=== PATIENT | female | born 1965 | race Caucasian/White ===

== ENCOUNTER 2017-02-24 10:39 | Emergency (ER) | payer BC ==
--- NOTE | 2017-02-24 11:00 | EDM.PDOC ---
ED HPI GENERAL MEDICAL PROBLEM - General Chief Complaint: Bite:Animal, Insect Stated Complaint: SCRATCH FROM CAT Time Seen by Provider: 02/24/17 10:57 Source of Information: Reports: Patient History Limitations: Reports: No Limitations - History of Present Illness INITIAL COMMENTS - FREE TEXT/NARRATIVE: HISTORY AND PHYSICAL: []51-year-old female who had scratches from her cat 2 days ago History of Present Illness: []The back claws of the cat caught her on her right forearm there is erythema surrounding the area She's been using antibiotic ointment on this Review of Systems: As per history of present illness and below otherwise all systems reviewed and negative. Past medical history: As per history of present illness and as reviewed below otherwise noncontributory. Surgical history: As per history of present illness and as reviewed below otherwise noncontributory. Social history: No reported history of drug or alcohol abuse. Family history: As per history of present illness and as reviewed below otherwise noncontributory. Physical exam: Alert and oriented female who is in significant pain from this superficial skin infection HEENT: Atraumatic, normocehpalic, pupils reactive, negative for conjunctival pallor or scleral icterus, mucous membranes dry throat clear, neck supple, nontender, trachea midline. Lungs: Clear to auscultation, breath sounds equal bilaterally, chest non tender. Heart: S1S2, regular, negative for clicks, rubs, or JVD. Abdomen: Soft, nondistended, nontender. Negative for masses or hepatossplenmegaly. Negative for costovertebral tenderness. Pelvis: Stable nontender. 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: Deferred. Rectal: Deferred Extremities: Right forearm with 4 babcock from the back caused her cat erythema surrounding this 6 centimeters hot to touch supposedly tender no fluctuant area present, negative for cords or calf pain. Neurovascular unremarkable. Neuro: Awake, alert, oriented. Cranial nerves II through XII unremarkable. Cerebellum unremarkable. Motor and sensory unremarkable throughout. Exam nonfocal. Diagnostics: [] Therapeutics: [] Impression: [Superficial skin infection] Plan: [Discharged home Augmentin Follow-up with your primary care in 2 days Consult water soaks 3 times a day ] Definitive disposition and diagnosis as appropriate pending reevaluation and review of above. Onset: Sudden Duration: Day(s): (2) Location: Reports: Upper Extremity, Right right arm Pain Score (Numeric/FACES): 8 - Related Data Allergies Allergy/AdvReac Type Severity Reaction Status Date / Time No Known Allergies Allergy Verified 02/24/17 10:52 Home Meds: Home Meds Amoxicillin/Potassium Clav [Augmentin 875-125 Tablet] 1 each PO BID #14 tablet 02/24/17 [Rx] Past Medical History HEENT History: Reports: Impaired Vision Other HEENT History: wears glasses, has upper partial denture Cardiovascular History: Reports: None Respiratory History: Reports: None Gastrointestinal History: Reports: GERD 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 History: Reports: None 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 Musculoskeletal History: Reports: None Neurological History: Reports: Migraines Psychiatric History: Reports: None Endocrine/Metabolic History: Reports: None Hematologic History: Reports: None Immunologic History: Reports: None Oncologic (Cancer) History: Reports: None Dermatologic History: Reports: None - Infectious Disease History Infectious Disease History: Reports: None - Past Surgical History GI Surgical History: Reports: Appendectomy, Cholecystectomy, Hernia, Inguinal 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 ED EXAM, ANIMAL BITE - Physical Exam Exam: See Below (see dictation) Course - Vital Signs Last Recorded V/S: Last Vital Signs Temp 36.1 C 02/24/17 10:52 Pulse 80 02/24/17 10:52 Resp 18 02/24/17 10:52 BP 140/88 02/24/17 10:52 Pulse Ox 98 02/24/17 10:52 Departure - Departure Time of Disposition: 10:57 Disposition: Home, Self-Care 01 Condition: Good Clinical Impression: Cellulitis Qualifiers: Site of cellulitis: extremity Site of cellulitis of extremity: upper extremity Laterality: right Qualified Code(s): L03.113 - Cellulitis of right upper limb - Discharge Information Prescriptions: Amoxicillin/Potassium Clav [Augmentin 875-125 Tablet] 1 each PO BID #14 tablet Referrals: Yulia Stewart NP [Primary Care Provider] - Additional Instructions: The following information is given to patients seen in the emergency department who are being discharged to home. This information is to outline your options for follow-up care. We provide all patients seen in our emergency department with a follow-up referral. The need for follow-up, as well as the timing and circumstances, are variable depending upon the specifics of your emergency department visit. If you don't have a primary care physician on staff, we will provide you with a referral. We always advise you to contact your personal physician following an emergency department visit to inform them of the circumstance of the visit and for follow-up with them and/or the need for any referrals to a consulting specialist. The emergency department will also refer you to a specialist when appropriate. This referral assures that you have the opportunity for followup care with a specialist. All of these measure are taken in an effort to provide you with optimal care, which includes your followup. Under all circumstances we always encourage you to contact your private physician who remains a resource for coordinating your care. When calling for followup care, please make the office aware that this follow-up is from your recent emergency room visit. If for any reason you are refused follow-up, please contact the [facility] emergency department at and asked to speak to the emergency department charge nurse. Prescription has been electronically sent to [facility] Follow-up with your primary care provider for reevaluation in 2 days Consult water soaks 3 times a day at least 10 minutes Worsening of condition return tomorrow for reevaluation in the emergency department
[2017-02-24 11:14] VITALS: BP 114/72
== END 2017-02-24 11:11 | disposition home or self-care (01) ==
LOC: MW.ED 10:39
DX: L03.113 Cellulitis of right upper limb (principal); Z87.891 Personal history of nicotine dependence; W55.03XA Scratched by cat, initial encounter
CPT/HCPCS: 99283

== ENCOUNTER 2017-07-11 10:25 | Inpatient (IN) | payer BC ==
[2017-07-11] MEDS ORDERED: Sodium Chloride 0.9% 500 ML IV ONE ×2 (10:36→11:07)
[2017-07-11] MEDS ORDERED: Ketorolac 30 MG/ML SDV IVPUSH ONE ×2 (10:36→17:22)
[2017-07-11] MEDS ORDERED: Alum Hydrox/Mag Hydrox/Simeth 15 ML, Lidocaine 2% 5 ML PO ONE ×2 (10:36)
[2017-07-11] MEDS ORDERED: Sodium Chloride 0.9% 1,000 ML IV ONE (10:36)
[2017-07-11] MEDS ORDERED: Aspirin 81 MG Tab.Chew PO ONE (10:36)
[2017-07-11] MEDS ORDERED: Ondansetron 4 MG/2 ML SDV IVPUSH ONE (10:36)
[2017-07-11] MEDS ORDERED: Albuterol/Ipratropium 3.0-0.5 MG/3 ML Neb Soln NEB ONE (10:38)
--- NOTE | 2017-07-11 10:42 | EDM.PDOC ---
ED HPI GENERAL MEDICAL PROBLEM - General Chief Complaint: Respiratory Problem Stated Complaint: SOB Time Seen by Provider: 07/11/17 10:36 Source of Information: Reports: Patient History Limitations: Reports: No Limitations - History of Present Illness INITIAL COMMENTS - FREE TEXT/NARRATIVE: HISTORY AND PHYSICAL: History of present illness: Patient is a 52-year-old female who presents to the emergency room with complaints of epigastric pain into her sternal area, cough, diarrhea and nausea. She states her symptoms started on Sunday but have progressively gotten worse. She has used [id number] therapeutic medications but has not found any relief. She did have pneumonia approximately 2 months ago and feels that her cough is returning which feels similar. Have a past medical history of smoking, quit 4 years ago. She denies any chest pain, fever, chills, or constipation. Review of systems: As per history of present illness and below otherwise all systems reviewed and negative. Past medical history: As per history of present illness and as reviewed below otherwise noncontributory. Surgical history: As per history of present illness and as reviewed below otherwise noncontributory. Social history: No reported history of drug or alcohol abuse. Family history: As per history of present illness and as reviewed below otherwise noncontributory. Physical exam: General: Well-developed and well-nourished 52-year-old female. Alert and oriented. Nontoxic appearing and in no acute distress. HEENT: Atraumatic, normocephalic, pupils equal and reactive bilaterally, negative for conjunctival pallor or scleral icterus, mucous membranes moist, throat clear, neck supple, nontender, trachea midline. No drooling or trismus noted. No meningeal signs Lungs: Fine expiratory wheezing noted to posterior bases bilaterally, breath sounds equal bilaterally, chest nontender. Harsh dry nonproductive cough noted Heart: S1S2, regular rate and rhythm without overt murmur Abdomen: Soft, nondistended, tenderness to the left and right upper quadrants. Negative for masses or hepatosplenomegaly. Negative for costovertebral tenderness. Pelvis: Stable nontender. 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: Deferred. Rectal: Deferred. Skin: Intact, warm, dry. No lesions or rashes noted. Extremities: Atraumatic, negative for cords or calf pain. Neurovascular unremarkable. Neuro: Awake, alert, oriented. Cranial nerves II through XII unremarkable. Cerebellum unremarkable. Motor and sensory unremarkable throughout. Exam nonfocal. Notes: Denies any alcohol use. States she been "taking alot of Theraflu". Still having some epigastric pain. WBC, 8. Elevated LFT (AST 689, ALT 341, Alk Phos 361). CXR shows a right lower lobe infiltrate. Khalif was consulted on this case, he is agreeable to keeping her overnight for observation. Will place patient on telemetry Diagnostics: CBC, CMP, H. pylori, 2 view chest x-ray, troponin, EKG, Blood culture Therapeutics: IV fluid, GI cocktail, aspirin, Zofran, Toradol, Rocephin, Azithromycin, Duo Neb , Solumedrol Impression: Dehydration Chest pain r/o MN Right Basilar Pneumonia Epigastric Pain Plan: Observation admission to med/surg with telemetry Definitive disposition and diagnosis as appropriate pending reevaluation and review of above. Duration: Day(s): Location: Reports: Chest, Abdomen Middle Abdomen Pain Score (Numeric/FACES): 5 - Related Data Allergies Allergy/AdvReac Type Severity Reaction Status Date / Time adhesive tape Allergy Rash Verified 07/11/17 10:40 Home Meds: Home Meds FLUoxetine [PROzac] 40 mg PO BEDTIME 07/11/17 [History] traZODone HCl [Trazodone HCl] 50 mg PO BEDTIME 07/11/17 [History] Past Medical History HEENT History: Reports: Impaired Vision Other HEENT History: wears glasses, has upper partial denture Cardiovascular History: Reports: None Respiratory History: Reports: None Gastrointestinal History: Reports: GERD 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 History: Reports: None 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 Musculoskeletal History: Reports: None Neurological History: Reports: Migraines Psychiatric History: Reports: None Endocrine/Metabolic History: Reports: None Hematologic History: Reports: None Immunologic History: Reports: None Oncologic (Cancer) History: Reports: None Dermatologic History: Reports: None - Infectious Disease History Infectious Disease History: Reports: None - Past Surgical History GI Surgical History: Reports: Appendectomy, Cholecystectomy, Hernia, Inguinal 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 ED EXAM, GENERAL - Physical Exam Exam: See Below (See dictation) Course - Vital Signs Last Recorded V/S: Last Vital Signs Temp 98.3 F 07/11/17 10:34 Pulse 104 H 07/11/17 10:34 Resp 32 H 07/11/17 10:34 BP 152/92 H 07/11/17 10:34 Pulse Ox 95 07/11/17 10:34 - Orders/Labs/Meds Orders: Active Orders 24 hr Category Date Time Status Patient Status [ADT] Stat ADT 07/11/17 11:39 Active Cardiac Monitoring [RC] . DIRECTED Care 07/11/17 11:39 Active EKG 12 Lead [EKG Documentation Completion] [RC] STAT Care 07/11/17 10:33 Active RT Aerosol Therapy [RC] ASDIRECTED Care 07/11/17 10:38 Active CULTURE BLOOD [BC] Stat Lab 07/11/17 11:41 Ordered CULTURE BLOOD [BC] Stat Lab 07/11/17 11:41 Ordered Azithromycin [Zithromax] Med 07/11/17 11:39 Stop Req 500 mg PO ONETIME ONE Azithromycin [Zithromax] 500 mg Med 07/11/17 11:42 Ordered Sodium Chloride 0.9% [Normal Saline] 500 ml IV ONETIME cefTRIAXone [Rocephin in Dextrose,Iso-Osm 1 GM/50 ML] 1 Med 07/11/17 11:39 Active gm Premix Bag 1 bag IV ONETIME Blood Culture x2 Reflex Set [OM.PC] Stat Oth 07/11/17 11:38 Ordered Medication Orders Ceftriaxone Sodium/Dextrose 1 (gm/ Premix) 50 mls @ 100 mls/hr IV ONETIME ONE Stop: 07/11/17 12:08 Azithromycin 500 mg/ Sodium (Chloride) 500 mls @ 250 mls/hr IV ONETIME ONE Stop: 07/11/17 13:41 Labs: Laboratory Tests 07/11/17 07/11/17 07/11/17 Range/Units 10:30 10:30 10:30 WBC 8.71 (4.0-11.0) K/uL RBC 4.88 (4.30-5.90) M/uL Hgb 14.2 (12.0-16.0) g/dL Hct 40.7 (36.0-46.0) % MCV 83.4 (80.0-98.0) fL MCH 29.1 (27.0-32.0) pg MCHC 34.9 (31.0-37.0) g/dL RDW Std Deviation 38.6 (28.0-62.0) fl RDW Coeff of Missy 13 (11.0-15.0) % Plt Count 553 H (150-400) K/uL MPV 8.70 (7.40-12.00) fL Neut % (Auto) 68.8 (48.0-80.0) % Lymph % (Auto) 20.4 (16.0-40.0) % [place] % (Auto) 9.4 (0.0-15.0) % Eos % (Auto) 0.7 (0.0-7.0) % Baso % (Auto) 0.7 (0.0-1.5) % Neut # (Auto) 6.0 H (1.4-5.7) K/uL Lymph # (Auto) 1.8 (0.6-2.4) K/uL [place] # (Auto) 0.8 (0.0-0.8) K/uL Eos # (Auto) 0.1 (0.0-0.7) K/uL Baso # (Auto) 0.1 (0.0-0.1) K/uL Nucleated RBC % 0.0 /100WBC Nucleated RBCs # 0 K/uL Sodium 138 (136-145) mmol/L Potassium 4.4 (3.5-5.1) mmol/L Chloride 104 (98-107) mmol/L Carbon Dioxide 19.8 L (21.0-32.0) mmol/L BUN 13 (7.0-18.0) mg/dL Creatinine 0.9 (0.6-1.0) mg/dL Est Cr Clr Drug Dosing 65.05 mL/min Estimated GFR (MDRD) > 60.0 ml/min Glucose 132 H (74-106) mg/dL Calcium 9.9 (8.5-10.1) mg/dL Total Bilirubin 0.6 (0.2-1.0) mg/dL AST 689 H (15-37) IU/L ALT 341 H (14-63) IU/L Alkaline Phosphatase 361 H (46-116) U/L Troponin I < 0.050 (0.000-0.056) ng/mL Total Protein 8.3 H (6.4-8.2) g/dL Albumin 3.6 (3.4-5.0) g/dL Globulin 4.7 H (2.0-3.5) g/dL Albumin/Globulin Ratio 0.8 L (1.3-2.8) Amylase (25-115) U/L Lipase (73-393) U/L H. pylori IgG Antibody NEGATIVE (NEG) 07/11/17 Range/Units 10:30 WBC (4.0-11.0) K/uL RBC (4.30-5.90) M/uL Hgb (12.0-16.0) g/dL Hct (36.0-46.0) % MCV (80.0-98.0) fL MCH (27.0-32.0) pg MCHC (31.0-37.0) g/dL RDW Std Deviation (28.0-62.0) fl RDW Coeff of Missy (11.0-15.0) % Plt Count (150-400) K/uL MPV (7.40-12.00) fL Neut % (Auto) (48.0-80.0) % Lymph % (Auto) (16.0-40.0) % [place] % (Auto) (0.0-15.0) % Eos % (Auto) (0.0-7.0) % Baso % (Auto) (0.0-1.5) % Neut # (Auto) (1.4-5.7) K/uL Lymph # (Auto) (0.6-2.4) K/uL [place] # (Auto) (0.0-0.8) K/uL Eos # (Auto) (0.0-0.7) K/uL Baso # (Auto) (0.0-0.1) K/uL Nucleated RBC % /100WBC Nucleated RBCs # K/uL Sodium (136-145) mmol/L Potassium (3.5-5.1) mmol/L Chloride (98-107) mmol/L Carbon Dioxide (21.0-32.0) mmol/L BUN (7.0-18.0) mg/dL Creatinine (0.6-1.0) mg/dL Est Cr Clr Drug Dosing mL/min Estimated GFR (MDRD) ml/min Glucose (74-106) mg/dL Calcium (8.5-10.1) mg/dL Total Bilirubin (0.2-1.0) mg/dL AST (15-37) IU/L ALT (14-63) IU/L Alkaline Phosphatase (46-116) U/L Troponin I (0.000-0.056) ng/mL Total Protein (6.4-8.2) g/dL Albumin (3.4-5.0) g/dL Globulin (2.0-3.5) g/dL Albumin/Globulin Ratio (1.3-2.8) Amylase 37 (25-115) U/L Lipase 93 (73-393) U/L H. pylori IgG Antibody (NEG) Meds: Medications Generic Name Dose Route Start Last Admin Trade Name Freq PRN Reason Stop Dose Admin Ceftriaxone Sodium/Dextrose 1 50 mls @ 100 mls/hr 07/11/17 11:39 gm/ Premix IV 07/11/17 12:08 ONETIME ONE Azithromycin 500 mg/ Sodium 500 mls @ 250 mls/hr 07/11/17 11:42 Chloride IV 07/11/17 13:41 ONETIME ONE Discontinued Medications Generic Name Dose Route Start Last Admin Trade Name Freq PRN Reason Stop Dose Admin Albuterol/Ipratropium 3 ml 07/11/17 10:38 07/11/17 11:34 Duoneb 3.0-0.5 Mg/3 Ml NEB 07/11/17 10:39 3 ml ONETIME ONE Administration Aspirin 324 mg 07/11/17 10:36 07/11/17 10:58 Aspirin PO 07/11/17 10:37 324 mg ONETIME ONE Administration Azithromycin 500 mg 07/11/17 11:39 Zithromax PO 07/11/17 11:40 ONETIME ONE Al Hydroxide/Mg Hydroxide 15 0 ml 07/11/17 10:36 07/11/17 10:56 ml/ Lidocaine HCl 5 ml PO 07/11/17 10:37 1 each ONETIME ONE Administration Sodium Chloride 1,000 mls @ 999 mls/hr 07/11/17 10:36 07/11/17 11:27 Normal Saline IV 07/11/17 11:36 Not Given .Bolus ONE Sodium Chloride 500 mls @ 999 mls/hr 07/11/17 10:36 07/11/17 11:25 Normal Saline IV 07/11/17 11:06 999 mls/hr .Bolus ONE Administration Sodium Chloride 500 mls @ 999 mls/hr 07/11/17 11:07 07/11/17 11:26 Normal Saline IV 07/11/17 11:37 999 mls/hr .BOLUS ONE Administration Ketorolac Tromethamine 30 mg 07/11/17 10:36 07/11/17 10:59 Toradol IVPUSH 07/11/17 10:37 30 mg ONETIME ONE Administration Ondansetron HCl 4 mg 07/11/17 10:36 07/11/17 11:00 Zofran IVPUSH 07/11/17 10:37 4 mg ONETIME ONE Administration Departure - Departure Time of Disposition: 11:48 Disposition: Refer to Observation Clinical Impression: Chest pain, rule out acute myocardial infarction, Dehydration, Epigastric abdominal pain Right lower lobe pneumonia Qualifiers: Pneumonia type: due to unspecified organism Qualified Code(s): J18.1 - Lobar pneumonia, unspecified organism - Discharge Information Referrals: PCP,Unknown [Primary Care Provider] - Forms: ED Department Discharge - My Orders Last 24 Hours: My Active Orders 07/11/17 10:33 EKG 12 Lead [EKG Documentation Completion] [RC] STAT 07/11/17 10:38 RT Aerosol Therapy [RC] ASDIRECTED 07/11/17 11:38 Blood Culture x2 Reflex Set [OM.PC] Stat 07/11/17 11:39 Patient Status [ADT] Stat Cardiac Monitoring [RC] . DIRECTED Azithromycin [Zithromax] 500 mg PO ONETIME ONE cefTRIAXone [Rocephin in Dextrose,Iso-Osm 1 GM/50 ML] 1 gm Premix Bag 1 bag IV ONETIME 07/11/17 11:41 CULTURE BLOOD [BC] Stat CULTURE BLOOD [BC] Stat 07/11/17 11:42 Azithromycin [Zithromax] 500 mg Sodium Chloride 0.9% [Normal Saline] 500 ml IV ONETIME - Assessment/Plan Last 24 Hours: My Active Orders 07/11/17 10:33 EKG 12 Lead [EKG Documentation Completion] [RC] STAT 07/11/17 10:38 RT Aerosol Therapy [RC] ASDIRECTED 07/11/17 11:38 Blood Culture x2 Reflex Set [OM.PC] Stat 07/11/17 11:39 Patient Status [ADT] Stat Cardiac Monitoring [RC] . DIRECTED Azithromycin [Zithromax] 500 mg PO ONETIME ONE cefTRIAXone [Rocephin in Dextrose,Iso-Osm 1 GM/50 ML] 1 gm Premix Bag 1 bag IV ONETIME 07/11/17 11:41 CULTURE BLOOD [BC] Stat CULTURE BLOOD [BC] Stat 07/11/17 11:42 Azithromycin [Zithromax] 500 mg Sodium Chloride 0.9% [Normal Saline] 500 ml IV ONETIME
[2017-07-11 11:28] LABS: CHLORIDE,CL 104 mmol/L (98-107); SODIUM,NA 138 mmol/L (136-145)
[2017-07-11] MEDS ORDERED: Azithromycin 250 MG Tab PO ONE (11:39)
[2017-07-11] MEDS ORDERED: cefTRIAXone 1 GM in Premix Bag 1 BAG IV ONE (11:39)
--- NOTE | 2017-07-11 11:39 | CR ---
EXAMINATION: Two-view chest (PA and Lateral views). HISTORY: Cough. FINDINGS: The trachea is midline. The cardiomediastinal silhouette is within normal limits. Mild infiltrate is noted within the right lung base. No pleural effusion pneumothorax. Old granulomatous disease. Osseous structures appear unremarkable. IMPRESSION: Right basilar pneumonia.
[2017-07-11] MEDS ORDERED: Azithromycin 500 MG in Sodium Chloride 0.9% 500 ML IV ONE (11:42)
[2017-07-11] MEDS ORDERED: methylPREDNISolone Sodium Succinate 125 MG/2 ML SDV IVPUSH ONE (11:50)
[2017-07-11] MEDS ORDERED: Azithromycin 500 MG AdvVial IV ONE (11:53)
[2017-07-11] MEDS ORDERED: Sodium Chloride 0.9% 250 ML ONE (11:56)
[2017-07-11] MEDS ORDERED: Azithromycin 500 MG in Sodium Chloride 0.9% 250 ML IV ONE (12:00)
--- NOTE | 2017-07-11 12:13 | PCM.HP ---
H&P History of Present Illness - General Date of Service: 07/11/17 Admit Problem/Dx: Admission Diagnosis/Problem Admission Diagnosis/Problem Pneumonia Source of Information: Patient History Limitations: Reports: No Limitations - History of Present Illness Initial Comments - Free Text/Narative: This 52 year old female with little pmh presented to the ED with generalized body aches, cough, and epigastric pain. She reports she had not been feeling well since Sunday. She reports being afebrile at home, but having a productive cough, headaches with poor appetite with diarrhea at home. She reports taking Theraflu 5-6 times daily since Sunday to help with cold symptoms. Nothing really seemed to help with her symptoms very long. She reports having epigastric and upper abdominal pain along with her ribs from coughing so much. No midsternal or L sided chest pain. She reports she did have pneumonia approximately 2 months ago, but felt she never quite improved. She has not received her influenza vaccine this year and tested negative 2 months ago when she was sick. She reports diarrhea started over the weekend, brown in color and watery. Not black or bloody. Some lower abdominal pain noted, but no urinary symptoms. No focal neurological deficits. In the ED no leukocytosis noted, platelets 553, bicarb 19.8,glucose 132, AST 689 , ALT 341, alk phos 361. Troponin negative, H pylori negative. CXR revealed R basilar infiltrate. EKG revealed SR no acute ischemic changes. She was noted to be slightly tachycardic on admission 104, with elevated BP 152/92 and RR 32. No hypoxia noted. PCP, Radha Stewart [employer] Middle Abdomen Pain Score (Numeric/FACES): 5 - Related Data Allergies/Adverse Reactions: Allergies Allergy/AdvReac Type Severity Reaction Status Date / Time adhesive tape Allergy Rash Verified 07/11/17 10:40 Home Medications: Home Meds FLUoxetine [PROzac] 40 mg PO BEDTIME 07/11/17 [History] traZODone HCl [Trazodone HCl] 50 mg PO BEDTIME 07/11/17 [History] Past Medical History HEENT History: Reports: Impaired Vision Other HEENT History: wears glasses, has upper partial denture Cardiovascular History: Reports: None. Denies: Afib, Blood Clots/VTE/DVT, CAD, High Cholesterol, Hypertension, IA Respiratory History: Reports: Bronchitis, Recurrent, Pneumonia, Recurrent. Denies: Asthma, COPD Gastrointestinal History: Reports: GERD. Denies: GI Bleed, Inflammatory Bowel Disease 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 History: Reports: None. Denies: Chronic Renal Insuffiency PERFORMING ARTIST History: Reports: None Musculoskeletal History: Reports: None Neurological History: Reports: Migraines. Denies: CVA, Seizure, TIA Psychiatric History: Reports: Depression Endocrine/Metabolic History: Reports: None. 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 Musculoskeletal Surgical History: Reports: Arthroscopic Knee Social & Family History - Family History Family Medical History: Noncontributory - Tobacco Use Smoking Status *Q: Former Smoker Years of Tobacco use: 30 Packs/Tins Daily: 1 Used Tobacco, but Quit: Yes Month/Year Tobacco Last Used: may - Caffeine Use Caffeine Use: Reports: Coffee - Alcohol Use Days Per Week of Alcohol Use: 1 Number of Drinks Per Day: 2 Total Drinks Per Week: 2 Alcohol Use Frequency: Rarely - Recreational Drug Use Recreational Drug Use: No Drug Use in Last 12 Months: No Recreational Drug Type: Reports: Marijuana/Hashish Other Recreational Drug Type: "in the 80s" - Living Situation & Occupation Occupation: Employed H&P Review of Systems - Review of Systems: Review Of Systems: See Below General: Reports: Chills, Malaise, Weakness, Fatigue, Decreased Appetite, Weight Loss. Denies: Fever HEENT: Reports: Headaches. Denies: Ear Pain, Post Nasal Drip, Sinus Congestion , Sore Throat, Visual Changes Pulmonary: Reports: Shortness of Breath, Cough, Sputum. Denies: Hemoptysis Cardiovascular: Denies: Chest Pain, Palpitations, Lightheadedness, Syncope Gastrointestinal: Reports: Abdominal Pain (epigastric and RUQ), Diarrhea. Denies: Black Stool, Bloody Stool 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: Reports: Pain (lower abdomen). Denies: Dysuria, Frequency, Burning, Flank Pain Musculoskeletal: Reports: No Symptoms. Denies: Neck Pain Skin: Reports: No Symptoms Psychiatric: Reports: No Symptoms Neurological: Reports: No Symptoms Hematologic/Lymphatic: Reports: No Symptoms Immunologic: Reports: No Symptoms Exam - Exam Exam: See Below - Vital Signs Vital Signs: Last Vital Signs Temp 98.3 F 07/11/17 10:34 Pulse 104 H 07/11/17 10:34 Resp 32 H 07/11/17 10:34 BP 152/92 H 07/11/17 10:34 Pulse Ox 95 07/11/17 10:34 Weight: 65.6 kg - Exam General: Alert, Oriented, Cooperative HEENT: Conjunctiva Clear. No: Mucosa Moist & [place] (dry muscous membranes) Neck: Supple (dys), Trachea Midline, 2 Lungs: Decreased Breath Sounds (RLL). No: Normal Respiratory Effort (dyspnea noted with speech), Wheezing Cardiovascular: Regular Rate, Regular Rhythm, Normal S1, Normal S2 GI/Abdominal Exam: Normal Bowel Sounds, Soft, Tender (epigastric and RUQ) Back Exam: Normal Inspection, Full Range of Motion. No: CVA Tenderness (L), CVA Tenderness (R) Extremities: Normal Inspection, Normal Range of Motion, Non-Tender, No Pedal Edema, Normal Capillary Refill Neuro Extensive - Mental Status: Alert, Oriented x3, Normal Mood/Affect, Normal Cognition Neuro Extensive - Motor, Sensory, Reflexes: CN II-XII Intact Psychiatric: Alert, Normal Affect, Normal Mood - Patient Data Lab Results Last 24 hrs: Laboratory Results - last 24 hr 07/11/17 07/11/17 07/11/17 Range/Units 10:30 10:30 10:30 WBC 8.71 (4.0-11.0) K/uL RBC 4.88 (4.30-5.90) M/uL Hgb 14.2 (12.0-16.0) g/dL Hct 40.7 (36.0-46.0) % MCV 83.4 (80.0-98.0) fL MCH 29.1 (27.0-32.0) pg MCHC 34.9 (31.0-37.0) g/dL RDW Std Deviation 38.6 (28.0-62.0) fl RDW Coeff of Missy 13 (11.0-15.0) % Plt Count 553 H (150-400) K/uL MPV 8.70 (7.40-12.00) fL Neut % (Auto) 68.8 (48.0-80.0) % Lymph % (Auto) 20.4 (16.0-40.0) % Milam % (Auto) 9.4 (0.0-15.0) % Eos % (Auto) 0.7 (0.0-7.0) % Baso % (Auto) 0.7 (0.0-1.5) % Neut # (Auto) 6.0 H (1.4-5.7) K/uL Lymph # (Auto) 1.8 (0.6-2.4) K/uL Milam # (Auto) 0.8 (0.0-0.8) K/uL Eos # (Auto) 0.1 (0.0-0.7) K/uL Baso # (Auto) 0.1 (0.0-0.1) K/uL Nucleated RBC % 0.0 /100WBC Nucleated RBCs # 0 K/uL Sodium 138 (136-145) mmol/L Potassium 4.4 (3.5-5.1) mmol/L Chloride 104 (98-107) mmol/L Carbon Dioxide 19.8 L (21.0-32.0) mmol/L BUN 13 (7.0-18.0) mg/dL Creatinine 0.9 (0.6-1.0) mg/dL Est Cr Clr Drug Dosing 65.05 mL/min Estimated GFR (MDRD) > 60.0 ml/min Glucose 132 H (74-106) mg/dL Calcium 9.9 (8.5-10.1) mg/dL Total Bilirubin 0.6 (0.2-1.0) mg/dL AST 689 H (15-37) IU/L ALT 341 H (14-63) IU/L Alkaline Phosphatase 361 H (46-116) U/L Troponin I < 0.050 (0.000-0.056) ng/mL Total Protein 8.3 H (6.4-8.2) g/dL Albumin 3.6 (3.4-5.0) g/dL Globulin 4.7 H (2.0-3.5) g/dL Albumin/Globulin Ratio 0.8 L (1.3-2.8) Amylase (25-115) U/L Lipase (73-393) U/L H. pylori IgG Antibody NEGATIVE (NEG) 07/11/17 Range/Units 10:30 WBC (4.0-11.0) K/uL RBC (4.30-5.90) M/uL Hgb (12.0-16.0) g/dL Hct (36.0-46.0) % MCV (80.0-98.0) fL MCH (27.0-32.0) pg MCHC (31.0-37.0) g/dL RDW Std Deviation (28.0-62.0) fl RDW Coeff of Missy (11.0-15.0) % Plt Count (150-400) K/uL MPV (7.40-12.00) fL Neut % (Auto) (48.0-80.0) % Lymph % (Auto) (16.0-40.0) % Milam % (Auto) (0.0-15.0) % Eos % (Auto) (0.0-7.0) % Baso % (Auto) (0.0-1.5) % Neut # (Auto) (1.4-5.7) K/uL Lymph # (Auto) (0.6-2.4) K/uL Milam # (Auto) (0.0-0.8) K/uL Eos # (Auto) (0.0-0.7) K/uL Baso # (Auto) (0.0-0.1) K/uL Nucleated RBC % /100WBC Nucleated RBCs # K/uL Sodium (136-145) mmol/L Potassium (3.5-5.1) mmol/L Chloride (98-107) mmol/L Carbon Dioxide (21.0-32.0) mmol/L BUN (7.0-18.0) mg/dL Creatinine (0.6-1.0) mg/dL Est Cr Clr Drug Dosing mL/min Estimated GFR (MDRD) ml/min Glucose (74-106) mg/dL Calcium (8.5-10.1) mg/dL Total Bilirubin (0.2-1.0) mg/dL AST (15-37) IU/L ALT (14-63) IU/L Alkaline Phosphatase (46-116) U/L Troponin I (0.000-0.056) ng/mL Total Protein (6.4-8.2) g/dL Albumin (3.4-5.0) g/dL Globulin (2.0-3.5) g/dL Albumin/Globulin Ratio (1.3-2.8) Amylase 37 (25-115) U/L Lipase 93 (73-393) U/L H. pylori IgG Antibody (NEG) Result Diagrams: 07/11/17 10:30 07/11/17 10:30 *Q Meaningful Use (ADM) - VTE Risk Assess *Q Each Risk Factor Represents 1 Point: Age 41 - 59 years, Serious lung disease including pneumonia Total Score 1 Point Risk Factors: 2 Each Risk Factor Represents 2 Points: None Total Score 2 Point Risk Factors: 0 Each Risk Factor Represents 3 Points: None Total Score 3 Point Risk Factors: 0 Each Risk Factor Represents 5 Points: None Total Score 5 Point Risk Factors: 0 Venous Thromboembolism Risk Factor Score *Q: 2 - Problem List (1) Sepsis SNOMED Code(s): 51561167 ICD Code: A41.9 - SEPSIS, UNSPECIFIED ORGANISM Status: Acute Current Visit: Yes (2) Right lower lobe pneumonia SNOMED Code(s): 174750269 ICD Code: J18.1 - LOBAR PNEUMONIA, UNSPECIFIED ORGANISM Status: Acute Current Visit: Yes Qualifiers: Pneumonia type: due to unspecified organism Qualified Code(s): J18.1 - Lobar pneumonia, unspecified organism (3) Diarrhea SNOMED Code(s): 88889345 ICD Code: R19.7 - DIARRHEA, UNSPECIFIED Status: Acute Current Visit: Yes (4) Dehydration SNOMED Code(s): 88187378 ICD Code: E86.0 - DEHYDRATION Status: Acute Current Visit: Yes (5) Epigastric abdominal pain SNOMED Code(s): 65567159 ICD Code: R10.13 - EPIGASTRIC PAIN Status: Acute Current Visit: Yes (6) Transaminitis SNOMED Code(s): 256704577, 969823216 ICD Code: R74.0 - NONSPEC ELEV OF LEVELS OF TRANSAMNS & LACTIC ACID DEHYDRGNSE Status: Acute Current Visit: Yes Problem List Initiated/Reviewed/Updated: Yes Orders Last 24hrs: Active Orders 24 hr Category Date Time Status Patient Status [ADT] Stat ADT 07/11/17 11:39 Active Cardiac Monitoring [RC] . DIRECTED Care 07/11/17 11:39 Active EKG 12 Lead [EKG Documentation Completion] [RC] STAT Care 07/11/17 10:33 Active RT Aerosol Therapy [RC] ASDIRECTED Care 07/11/17 10:38 Active Abdomen Comp [US] Stat Exams 07/11/17 12:03 Ordered ACETAMINOPHEN [CHEM] Stat Lab 07/11/17 12:03 Ordered CULTURE BLOOD [BC] Stat Lab 07/11/17 11:41 Ordered CULTURE BLOOD [BC] Stat Lab 07/11/17 11:41 Ordered CULTURE URINE [RM] Stat Lab 07/11/17 12:04 Ordered HEPATITIS PANEL, ACUTE [REF] Stat Lab 07/11/17 12:03 Ordered INFLUENZA A+B AG SCREEN [RM] Stat Lab 07/11/17 12:03 Ordered UA W/MICROSCOPIC [URIN] Stat Lab 07/11/17 12:04 Ordered Azithromycin [Zithromax] 500 mg Med 07/11/17 12:00 Active Sodium Chloride 0.9% [Normal Saline] 250 ml IV ONETIME cefTRIAXone [Rocephin] 1 mg Med 07/11/17 12:00 Active Sodium Chloride 0.9% [Normal Saline] 50 ml IV ONETIME Blood Culture x2 Reflex Set [OM.PC] Stat Oth 07/11/17 11:38 Ordered Medication Orders Ceftriaxone Sodium 1 mg/ (Sodium Chloride) 50 mls @ 100 mls/hr IV ONETIME ONE Stop: 07/11/17 12:29 Azithromycin 500 mg/ Sodium (Chloride) 250 mls @ 125 mls/hr IV ONETIME ONE Stop: 07/11/17 13:59 Assessment/Plan Comment:: This 52 year old female admitted with dehydration, CAP with sepsis, diarrhea and elevation of her AST/ALT 1. CAP: suspected sepsis, with tachycardia, tachypnea and RLL pneumonia. Will obtain BC, sputum culture and UA/UC. Start on Rocephin and Azithromycin. Duonebs as needed, encourage IS use. Oxygen PRN. Obtain influenza swab. Lactate 1.3, given 2 L IVFs in ED, HR decreased to 80-90s. 2. Dehydration: Likely secondary to a poor appetite and diarrhea. Will give IVFs today and monitor. 3. Transaminitis: No recent heavy alcohol use, has had history of gallstones with gallstone pancreatitis, subsequent cholecystectomy. Has recently taken many doses of Theraflu, containing Tylenol. Will obtain Tylenol level, acute hepatitis panel and abdominal US. No IV drug use. Tylenol level 0, amylase and lipase negative. abdominal US pending. 4. Diarrhea: Obtain stool studies, was recently on antibiotics for pneumonia 2 months ago. 5. Atypical chest pain: Will monitor on telemetry overnight and trend troponins. VTE prophylaxis: Lovenox. Dispo: made inpatient after interviewing patient due to illness severity. 2-3 days pending improvement.
[2017-07-11] MEDS ORDERED: Albuterol/Ipratropium 3.0-0.5 MG/3 ML Neb Soln NEB PRN (12:59)
[2017-07-11] MEDS ORDERED: Ondansetron 4 MG/2 ML SDV IVPUSH PRN (12:59)
[2017-07-11] MEDS: Ibuprofen 400 MG Tab PO PRN ×2 (13:39→21:23)
--- NOTE | 2017-07-11 13:41 | US ---
EXAMINATION: Abdominal ultrasound HISTORY: Epigastric pain COMPARISON: Radiographs dated 10/08/2015 TECHNIQUE: Grayscale and color Doppler imaging obtained through the abdomen. FINDINGS: The visualized pancreas appears normal. The IVC and aorta are unremarkable. The liver is no rmal in contour and echogenicity without a focal hepatic mass. Gallbladder wall thickness is 5 mm. Ch olecystectomy. Right kidney measures 10.5 cm and the left kidney measures 11 cm [id number] without evidence of hydronephrosis. Normal color Doppler flow bilaterally. The spleen is mildly enlarged. No abdominal ascites. IMPRESSION: 1. Mild splenomegaly. 2. No acute findings within the abdomen. 3. Cholecystectomy.
[2017-07-11] MEDS: Enoxaparin 40 MG/0.4 ML Syringe SUBCUT SCH (13:58)
[2017-07-11] MEDS: Sodium Chloride 0.9% 1,000 ML IV SCH (18:07)
[2017-07-11] MEDS ORDERED: FLUOXETINE 40 MG PO SCH (21:00)
[2017-07-11] MEDS ORDERED: traZODone 50 MG Tab PO SCH (21:00)
[2017-07-11] MEDS: Benzonatate 100 MG Cap PO PRN (21:25)
[2017-07-12] MEDS: Sodium Chloride 0.9% 1,000 ML IV SCH ×2 (01:46→09:53)
[2017-07-12] MEDS: Ibuprofen 400 MG Tab PO PRN (03:08)
[2017-07-12] MEDS: Benzonatate 100 MG Cap PO PRN (03:09)
[2017-07-12 06:59] LABS: CHLORIDE,CL 111 mmol/L (98-107); SODIUM,NA 141 mmol/L (136-145)
[2017-07-12] MEDS ORDERED: Metoclopramide 10 MG/2 ML SDV IVPUSH ONE (08:27)
[2017-07-12] MEDS ORDERED: diphenhydrAMINE 50 MG/ML SDV IVPUSH ONE (08:27)
[2017-07-12] MEDS ORDERED: Ketorolac 30 MG/ML SDV IVPUSH ONE (08:27)
--- NOTE | 2017-07-12 08:33 | PCM.PN ---
- General Info Date of Service: 07/12/17 Admission Dx/Problem (Free Text): Admission Diagnosis/Problem Admission Diagnosis/Problem Pneumonia Subjective Update: Not feeling well today, reports a migraine behind both her eyes worsens with coughing. No neck pain. Some pleuritic L sided chest pain, especially with coughing and deep breathing. Coughing less productive, but continues. No abdominal pain. No diarrhea. ate breakfast well this morning. Didn't sleep well. Functional Status: Reports: Pain Controlled, Tolerating Diet, Ambulating, Urinating, Incentive Spirometry (Encouraged to use 10 x every 1 hour) - Review of Systems General: Reports: Fatigue, Malaise HEENT: Reports: Headaches, Sinus Congestion. Denies: Visual Changes Pulmonary: Reports: Shortness of Breath, Pleuritic Chest Pain (L sidedd, lower ribs with coughing and deep breathing.), Cough. Denies: Sputum, Hemoptysis, Wheezing Cardiovascular: Reports: No Symptoms. Denies: Chest Pain, Palpitations Gastrointestinal: Reports: No Symptoms. Denies: Abdominal Pain, Diarrhea, Nausea, Vomiting 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: Reports: No Symptoms. Denies: Dysuria, Frequency, Burning, Pain Musculoskeletal: Reports: No Symptoms. Denies: Neck Pain Skin: Reports: No Symptoms Neurological: Reports: No Symptoms Psychiatric: Reports: No Symptoms - Patient Data Vitals - Most Recent: Last Vital Signs Temp 98.3 F 07/12/17 08:00 Pulse 82 07/12/17 08:00 Resp 18 07/12/17 08:00 BP 107/55 L 07/12/17 08:00 Pulse Ox 95 07/12/17 08:00 Weight - Most Recent: 65.6 kg I&O - Last 24 Hours: Intake & Output 07/11/17 07/12/17 07/12/17 22:59 06:59 14:59 Intake Total 240 2089 Output Total 300 1600 Balance -60 489 Lab Results Last 24 Hours: Laboratory Results - last 24 hr 07/11/17 07/11/17 07/11/17 Range/Units 10:30 10:30 10:30 WBC 8.71 (4.0-11.0) K/uL RBC 4.88 (4.30-5.90) M/uL Hgb 14.2 (12.0-16.0) g/dL Hct 40.7 (36.0-46.0) % MCV 83.4 (80.0-98.0) fL MCH 29.1 (27.0-32.0) pg MCHC 34.9 (31.0-37.0) g/dL RDW Std Deviation 38.6 (28.0-62.0) fl RDW Coeff of Missy 13 (11.0-15.0) % Plt Count 553 H (150-400) K/uL MPV 8.70 (7.40-12.00) fL Neut % (Auto) 68.8 (48.0-80.0) % Lymph % (Auto) 20.4 (16.0-40.0) % [place] % (Auto) 9.4 (0.0-15.0) % Eos % (Auto) 0.7 (0.0-7.0) % Baso % (Auto) 0.7 (0.0-1.5) % Neut # (Auto) 6.0 H (1.4-5.7) K/uL Lymph # (Auto) 1.8 (0.6-2.4) K/uL [place] # (Auto) 0.8 (0.0-0.8) K/uL Eos # (Auto) 0.1 (0.0-0.7) K/uL Baso # (Auto) 0.1 (0.0-0.1) K/uL Nucleated RBC % 0.0 /100WBC Nucleated RBCs # 0 K/uL Lactate (0.20-2.00) mmol/L Sodium 138 (136-145) mmol/L Potassium 4.4 (3.5-5.1) mmol/L Chloride 104 (98-107) mmol/L Carbon Dioxide 19.8 L (21.0-32.0) mmol/L BUN 13 (7.0-18.0) mg/dL Creatinine 0.9 (0.6-1.0) mg/dL Est Cr Clr Drug Dosing 65.05 mL/min Estimated GFR (MDRD) > 60.0 ml/min Glucose 132 H (74-106) mg/dL Calcium 9.9 (8.5-10.1) mg/dL Total Bilirubin 0.6 (0.2-1.0) mg/dL AST 689 H (15-37) IU/L ALT 341 H (14-63) IU/L Alkaline Phosphatase 361 H (46-116) U/L Troponin I < 0.050 (0.000-0.056) ng/mL Total Protein 8.3 H (6.4-8.2) g/dL Albumin 3.6 (3.4-5.0) g/dL Globulin 4.7 H (2.0-3.5) g/dL Albumin/Globulin Ratio 0.8 L (1.3-2.8) Amylase (25-115) U/L Lipase (73-393) U/L Urine Color Urine Appearance Urine pH (5.0-8.0) Ur Specific [place] (1.001-1.035) Urine Protein (NEGATIVE) mg/dL Urine Glucose (UA) (NEGATIVE) mg/dL Urine Ketones (NEGATIVE) mg/dL Urine Occult Blood (NEGATIVE) Urine Nitrite (NEGATIVE) Urine Bilirubin (NEGATIVE) Urine Urobilinogen (<2.0) EU/dL Ur Leukocyte Esterase (NEGATIVE) Urine RBC (0-2/HPF) Urine WBC (0-5/HPF) Ur Epithelial Cells (NONE-FEW) Urine Bacteria (NEGATIVE) Acetaminophen ug/mL H. pylori IgG Antibody NEGATIVE (NEG) 07/11/17 07/11/17 07/11/17 Range/Units 10:30 10:30 13:04 WBC (4.0-11.0) K/uL RBC (4.30-5.90) M/uL Hgb (12.0-16.0) g/dL Hct (36.0-46.0) % MCV (80.0-98.0) fL MCH (27.0-32.0) pg MCHC (31.0-37.0) g/dL RDW Std Deviation (28.0-62.0) fl RDW Coeff of Missy (11.0-15.0) % Plt Count (150-400) K/uL MPV (7.40-12.00) fL Neut % (Auto) (48.0-80.0) % Lymph % (Auto) (16.0-40.0) % [place] % (Auto) (0.0-15.0) % Eos % (Auto) (0.0-7.0) % Baso % (Auto) (0.0-1.5) % Neut # (Auto) (1.4-5.7) K/uL Lymph # (Auto) (0.6-2.4) K/uL [place] # (Auto) (0.0-0.8) K/uL Eos # (Auto) (0.0-0.7) K/uL Baso # (Auto) (0.0-0.1) K/uL Nucleated RBC % /100WBC Nucleated RBCs # K/uL Lactate 1.3 (0.20-2.00) mmol/L Sodium (136-145) mmol/L Potassium (3.5-5.1) mmol/L Chloride (98-107) mmol/L Carbon Dioxide (21.0-32.0) mmol/L BUN (7.0-18.0) mg/dL Creatinine (0.6-1.0) mg/dL Est Cr Clr Drug Dosing mL/min Estimated GFR (MDRD) ml/min Glucose (74-106) mg/dL Calcium (8.5-10.1) mg/dL Total Bilirubin (0.2-1.0) mg/dL AST (15-37) IU/L ALT (14-63) IU/L Alkaline Phosphatase (46-116) U/L Troponin I (0.000-0.056) ng/mL Total Protein (6.4-8.2) g/dL Albumin (3.4-5.0) g/dL Globulin (2.0-3.5) g/dL Albumin/Globulin Ratio (1.3-2.8) Amylase 37 (25-115) U/L Lipase 93 (73-393) U/L Urine Color Urine Appearance Urine pH (5.0-8.0) Ur Specific [place] (1.001-1.035) Urine Protein (NEGATIVE) mg/dL Urine Glucose (UA) (NEGATIVE) mg/dL Urine Ketones (NEGATIVE) mg/dL Urine Occult Blood (NEGATIVE) Urine Nitrite (NEGATIVE) Urine Bilirubin (NEGATIVE) Urine Urobilinogen (<2.0) EU/dL Ur Leukocyte Esterase (NEGATIVE) Urine RBC (0-2/HPF) Urine WBC (0-5/HPF) Ur Epithelial Cells (NONE-FEW) Urine Bacteria (NEGATIVE) Acetaminophen 0.0 ug/mL H. pylori IgG Antibody (NEG) 07/11/17 07/11/17 07/11/17 Range/Units 15:20 16:44 22:52 WBC (4.0-11.0) K/uL RBC (4.30-5.90) M/uL Hgb (12.0-16.0) g/dL Hct (36.0-46.0) % MCV (80.0-98.0) fL MCH (27.0-32.0) pg MCHC (31.0-37.0) g/dL RDW Std Deviation (28.0-62.0) fl RDW Coeff of Missy (11.0-15.0) % Plt Count (150-400) K/uL MPV (7.40-12.00) fL Neut % (Auto) (48.0-80.0) % Lymph % (Auto) (16.0-40.0) % [place] % (Auto) (0.0-15.0) % Eos % (Auto) (0.0-7.0) % Baso % (Auto) (0.0-1.5) % Neut # (Auto) (1.4-5.7) K/uL Lymph # (Auto) (0.6-2.4) K/uL [place] # (Auto) (0.0-0.8) K/uL Eos # (Auto) (0.0-0.7) K/uL Baso # (Auto) (0.0-0.1) K/uL Nucleated RBC % /100WBC Nucleated RBCs # K/uL Lactate (0.20-2.00) mmol/L Sodium (136-145) mmol/L Potassium (3.5-5.1) mmol/L Chloride (98-107) mmol/L Carbon Dioxide (21.0-32.0) mmol/L BUN (7.0-18.0) mg/dL Creatinine (0.6-1.0) mg/dL Est Cr Clr Drug Dosing mL/min Estimated GFR (MDRD) ml/min Glucose (74-106) mg/dL Calcium (8.5-10.1) mg/dL Total Bilirubin (0.2-1.0) mg/dL AST (15-37) IU/L ALT (14-63) IU/L Alkaline Phosphatase (46-116) U/L Troponin I < 0.050 < 0.050 (0.000-0.056) ng/mL Total Protein (6.4-8.2) g/dL Albumin (3.4-5.0) g/dL Globulin (2.0-3.5) g/dL Albumin/Globulin Ratio (1.3-2.8) Amylase (25-115) U/L Lipase (73-393) U/L Urine Color YELLOW Urine Appearance CLEAR Urine pH 6.0 (5.0-8.0) Ur Specific [place] 1.020 (1.001-1.035) Urine Protein NEGATIVE (NEGATIVE) mg/dL Urine Glucose (UA) NEGATIVE (NEGATIVE) mg/dL Urine Ketones NEGATIVE (NEGATIVE) mg/dL Urine Occult Blood NEGATIVE (NEGATIVE) Urine Nitrite NEGATIVE (NEGATIVE) Urine Bilirubin NEGATIVE (NEGATIVE) Urine Urobilinogen 0.2 (<2.0) EU/dL Ur Leukocyte Esterase NEGATIVE (NEGATIVE) Urine RBC 0-1 (0-2/HPF) Urine WBC 0-2 (0-5/HPF) Ur Epithelial Cells OCCASIONAL (NONE-FEW) Urine Bacteria RARE (NEGATIVE) Acetaminophen ug/mL H. pylori IgG Antibody (NEG) 07/12/17 07/12/17 Range/Units 06:13 06:13 WBC 7.66 (4.0-11.0) K/uL RBC 3.73 L (4.30-5.90) M/uL Hgb 10.7 L (12.0-16.0) g/dL Hct 31.5 L (36.0-46.0) % MCV 84.5 (80.0-98.0) fL MCH 28.7 (27.0-32.0) pg MCHC 34.0 (31.0-37.0) g/dL RDW Std Deviation 39.4 (28.0-62.0) fl RDW Coeff of Missy 13 (11.0-15.0) % Plt Count 415 H (150-400) K/uL MPV 8.80 (7.40-12.00) fL Neut % (Auto) 72.0 (48.0-80.0) % Lymph % (Auto) 18.1 (16.0-40.0) % [place] % (Auto) 9.5 (0.0-15.0) % Eos % (Auto) 0.1 (0.0-7.0) % Baso % (Auto) 0.3 (0.0-1.5) % Neut # (Auto) 5.5 (1.4-5.7) K/uL Lymph # (Auto) 1.4 (0.6-2.4) K/uL [place] # (Auto) 0.7 (0.0-0.8) K/uL Eos # (Auto) 0.0 (0.0-0.7) K/uL Baso # (Auto) 0.0 (0.0-0.1) K/uL Nucleated RBC % 0.0 /100WBC Nucleated RBCs # 0 K/uL Lactate (0.20-2.00) mmol/L Sodium 141 (136-145) mmol/L Potassium 4.0 (3.5-5.1) mmol/L Chloride 111 H (98-107) mmol/L Carbon Dioxide 21.8 (21.0-32.0) mmol/L BUN 13 (7.0-18.0) mg/dL Creatinine 0.6 (0.6-1.0) mg/dL Est Cr Clr Drug Dosing 97.57 mL/min Estimated GFR (MDRD) > 60.0 ml/min Glucose 123 H (74-106) mg/dL Calcium 9.0 (8.5-10.1) mg/dL Total Bilirubin 0.2 (0.2-1.0) mg/dL AST 90 H (15-37) IU/L ALT 179 H (14-63) IU/L Alkaline Phosphatase 216 H (46-116) U/L Troponin I (0.000-0.056) ng/mL Total Protein 6.3 L (6.4-8.2) g/dL Albumin 2.8 L (3.4-5.0) g/dL Globulin 3.5 (2.0-3.5) g/dL Albumin/Globulin Ratio 0.8 L (1.3-2.8) Amylase (25-115) U/L Lipase (73-393) U/L Urine Color Urine Appearance Urine pH (5.0-8.0) Ur Specific [place] (1.001-1.035) Urine Protein (NEGATIVE) mg/dL Urine Glucose (UA) (NEGATIVE) mg/dL Urine Ketones (NEGATIVE) mg/dL Urine Occult Blood (NEGATIVE) Urine Nitrite (NEGATIVE) Urine Bilirubin (NEGATIVE) Urine Urobilinogen (<2.0) EU/dL Ur Leukocyte Esterase (NEGATIVE) Urine RBC (0-2/HPF) Urine WBC (0-5/HPF) Ur Epithelial Cells (NONE-FEW) Urine Bacteria (NEGATIVE) Acetaminophen ug/mL H. pylori IgG Antibody (NEG) Terry Results Last 24 Hours: Microbiology 07/11/17 15:20 Gram Stain - Preliminary Sputum - Expectorated 07/11/17 13:35 Influenza Type A Antigen Screen - Final Nasopharyngeal Swab NEGATIVE INFLUENZA A VIRUS AG Influenza Type B Antigen Screen - Final NEGATIVE INFLUENZA B VIRUS AG 07/11/17 12:10 Anaerobic Blood Culture - Final Blood - Venous - Lab Draw Med Orders - Current: Current Medications Albuterol/Ipratropium (Duoneb 3.0-0.5 Mg/3 Ml) 3 ml NEB Q4HRRT PRN PRN Reason: Shortness Of Breath/wheezing Last Admin: 07/11/17 19:52 Dose: 3 ml Azithromycin (Zithromax) 500 mg PO Q24H [facility] Benzonatate (Tessalon Perles) 100 mg PO QID PRN PRN Reason: Cough Last Admin: 07/12/17 03:09 Dose: 100 mg Diphenhydramine HCl (Benadryl) 25 mg IVPUSH ONETIME ONE Stop: 07/12/17 08:28 Enoxaparin Sodium (Lovenox) 40 mg SUBCUT Q24H [facility] Last Admin: 07/11/17 13:58 Dose: 40 mg Sodium Chloride (Normal Saline) 1,000 mls @ 125 mls/hr IV ASDIRECTED [facility] Last Admin: 07/12/17 01:46 Dose: 125 mls/hr Ceftriaxone Sodium 1,000 mg/ (Sodium Chloride) 50 mls @ 100 mls/hr IV Q24H [facility] Ibuprofen (Motrin) 400 mg PO Q6H PRN PRN Reason: Pain (mild 1-3) Last Admin: 07/12/17 03:08 Dose: 400 mg Ketorolac Tromethamine (Toradol) 30 mg IVPUSH ONETIME ONE Stop: 07/12/17 08:28 Metoclopramide HCl (Reglan) 10 mg IVPUSH ONETIME ONE Stop: 07/12/17 08:28 Non-Formulary Medication (Fluoxetine [Prozac]) 40 mg PO BEDTIME ARETHA Last Admin: 07/11/17 21:36 Dose: Not Given Ondansetron HCl (Zofran) 4 mg IVPUSH Q4H PRN PRN Reason: Nausea Trazodone HCl (Trazodone) 50 mg PO BEDTIME ARETHA Last Admin: 07/11/17 21:25 Dose: 50 mg Discontinued Medications Albuterol/Ipratropium (Duoneb 3.0-0.5 Mg/3 Ml) 3 ml NEB ONETIME ONE Stop: 07/11/17 10:39 Last Admin: 07/11/17 11:34 Dose: 3 ml Aspirin (Aspirin) 324 mg PO ONETIME ONE Stop: 07/11/17 10:37 Last Admin: 07/11/17 10:58 Dose: 324 mg Azithromycin (Zithromax) 500 mg PO ONETIME ONE Stop: 07/11/17 11:40 Last Admin: 07/11/17 15:28 Dose: Not Given Azithromycin (Zithromax) Confirm Administered Dose 500 mg IV .STK-MED ONE Stop: 07/11/17 11:54 Last Admin: 07/11/17 13:00 Dose: Not Given Al Hydroxide/Mg Hydroxide 15 (ml/ Lidocaine HCl 5 ml) 0 ml PO ONETIME ONE Stop: 07/11/17 10:37 Last Admin: 07/11/17 10:56 Dose: 1 each Sodium Chloride (Normal Saline) 1,000 mls @ 999 mls/hr IV .Bolus ONE Stop: 07/11/17 11:36 Last Admin: 07/11/17 11:27 Dose: Not Given Sodium Chloride (Normal Saline) 500 mls @ 999 mls/hr IV .Bolus ONE Stop: 07/11/17 11:06 Last Admin: 07/11/17 11:25 Dose: 999 mls/hr Sodium Chloride (Normal Saline) 500 mls @ 999 mls/hr IV .BOLUS ONE Stop: 07/11/17 11:37 Last Admin: 07/11/17 11:26 Dose: 999 mls/hr Ceftriaxone Sodium/Dextrose 1 (gm/ Premix) 50 mls @ 100 mls/hr IV ONETIME ONE Stop: 07/11/17 12:08 Last Admin: 07/11/17 15:28 Dose: Not Given Azithromycin 500 mg/ Sodium (Chloride) 500 mls @ 250 mls/hr IV ONETIME ONE Stop: 07/11/17 13:41 Last Admin: 07/11/17 12:16 Dose: 250 mls/hr Ceftriaxone Sodium 1 mg/ (Sodium Chloride) 50 mls @ 100 mls/hr IV ONETIME ONE Stop: 07/11/17 12:29 Last Admin: 07/11/17 15:12 Dose: 100 mls/hr Azithromycin 500 mg/ Sodium (Chloride) 250 mls @ 125 mls/hr IV ONETIME ONE Stop: 07/11/17 13:59 Last Admin: 07/11/17 13:01 Dose: Not Given Sodium Chloride (Normal Saline) Confirm Administered Dose 250 mls @ as directed .ROUTE .STK-MED ONE Stop: 07/11/17 11:57 Last Admin: 07/11/17 13:00 Dose: Not Given Ketorolac Tromethamine (Toradol) 30 mg IVPUSH ONETIME ONE Stop: 07/11/17 10:37 Last Admin: 07/11/17 10:59 Dose: 30 mg Ketorolac Tromethamine (Toradol) 30 mg IVPUSH ONETIME ONE Stop: 07/11/17 17:23 Last Admin: 07/11/17 18:07 Dose: 30 mg Methylprednisolone Sodium Succinate (Solu-Medrol) 125 mg IVPUSH ONETIME ONE Stop: 07/11/17 11:51 Last Admin: 07/11/17 12:17 Dose: 125 mg Ondansetron HCl (Zofran) 4 mg IVPUSH ONETIME ONE Stop: 07/11/17 10:37 Last Admin: 07/11/17 11:00 Dose: 4 mg - Exam Quality Assessment: DVT Prophylaxis. No: Supplemental Oxygen General: Alert, Oriented, Cooperative, No Acute Distress Neck: Supple Lungs: Crackles (R lower lung base). No: Normal Respiratory Effort (dyspnea noted with speech.) Cardiovascular: Regular Rate, Regular Rhythm, No Murmurs GI/Abdominal Exam: Normal Bowel Sounds, Soft, Non-Tender, No Organomegaly, No Distention, No Abnormal Bruit, No Mass, Pelvis Stable Back Exam: Normal Inspection, Full Range of Motion Extremities: Normal Inspection, Normal Range of Motion, Non-Tender, No Pedal Edema, Normal Capillary Refill Neurological: No New Focal Deficit Psy/Mental Status: Alert, Normal Affect, Normal Mood - Problem List & Annotations (1) Sepsis SNOMED Code(s): 18967073 Code(s): A41.9 - SEPSIS, UNSPECIFIED ORGANISM Status: Acute Current Visit : Yes (2) Right lower lobe pneumonia SNOMED Code(s): 277960371 Code(s): J18.1 - LOBAR PNEUMONIA, UNSPECIFIED ORGANISM Status: Acute Current Visit: Yes Qualifiers: Pneumonia type: due to unspecified organism Qualified Code(s): J18.1 - Lobar pneumonia, unspecified organism (3) Diarrhea SNOMED Code(s): 65218640 Code(s): R19.7 - DIARRHEA, UNSPECIFIED Status: Acute Current Visit: Yes (4) Dehydration SNOMED Code(s): 10918749 Code(s): E86.0 - DEHYDRATION Status: Acute Current Visit: Yes (5) Epigastric abdominal pain SNOMED Code(s): 26162016 Code(s): R10.13 - EPIGASTRIC PAIN Status: Acute Current Visit: Yes (6) Transaminitis SNOMED Code(s): 234357180, 417836434 Code(s): R74.0 - NONSPEC ELEV OF LEVELS OF TRANSAMNS & LACTIC ACID DEHYDRGNSE Status: Acute Current Visit: Yes - Problem List Review Problem List Initiated/Reviewed/Updated: Yes - My Orders Last 24 Hours: My Active Orders 07/11/17 10:30 HEPATITIS PANEL, ACUTE [REF] Stat 07/11/17 12:58 Admission Status [Patient Status] [ADT] Routine 07/11/17 12:59 Oxygen Therapy [RC] PRN Up ad Maya [RC] ASDIRECTED VTE/DVT Education [RC] PER UNIT ROUTINE Vital Signs [RC] Q4H Albuterol/Ipratropium [DuoNeb 3.0-0.5 MG/3 ML] 3 ml NEB Q4HRRT PRN Ibuprofen [Motrin] 400 mg PO Q6H PRN Ondansetron [Zofran] 4 mg IVPUSH Q4H PRN Resuscitation Status Routine 07/11/17 13:00 Intake and Output [RC] Q12HR Enoxaparin [Lovenox] 40 mg SUBCUT Q24H Sodium Chloride 0.9% [Normal Saline] 1,000 ml IV ASDIRECTED 07/11/17 13:02 RT Aerosol Therapy [RC] ASDIRECTED 07/11/17 13:19 IS (RT) [RT Incentive Spirometry] [RC] ASDIRECTED 07/11/17 21:00 FLUoxetine [PROzac] 40 mg PO BEDTIME traZODone 50 mg PO BEDTIME 07/11/17 Lunch Regular Diet [DIET] 07/12/17 06:13 GLYCOSYLATED HEMOGLOBIN,HGBA1C [CHEM] Routine 07/12/17 08:27 Ketorolac [Toradol] 30 mg IVPUSH ONETIME ONE Metoclopramide [Reglan] 10 mg IVPUSH ONETIME ONE diphenhydrAMINE [Benadryl] 25 mg IVPUSH ONETIME ONE 07/12/17 09:00 Azithromycin [Zithromax] 500 mg PO Q24H 07/12/17 11:30 cefTRIAXone [Rocephin] 1,000 mg Sodium Chloride 0.9% [Normal Saline] 50 ml IV Q24H 07/13/17 05:11 CBC WITH AUTO DIFF [HEME] AM COMPREHENSIVE METABOLIC PN,CMP [CHEM] AM 07/14/17 05:11 CBC WITH AUTO DIFF [HEME] AM COMPREHENSIVE METABOLIC PN,CMP [CHEM] AM - Plan Plan:: This 52 year old female admitted with dehydration, CAP with sepsis, diarrhea and elevation of her AST/ALT 1. CAP: Slight improvement. Suspected sepsis, with tachycardia, tachypnea resolved. CXR revealed RLL pneumonia. BC and UC pending. UA negative. Sputum culture reveals many gram +cocci in singles, mod gram + cocci in clusters and many gram negative rods. Influenza negative. Continue Rocephin and Azithromycin. Duonebs as needed, encourage IS use. Oxygen PRN. Will start Flonase for sinus congestion. Also having migraine this morning, will given Toradol, Benadryl, and Reglan this am and monitor. 2. Dehydration: Improved. Likely secondary to a poor appetite and diarrhea, which have now improved. Will stop IVFs today 3. Transaminitis: Improved. AST 90, ALT 179, and alk phos 216, much improved from yesterday. May be related to dehydration. Continue to monitor. US ultrasound negative, mild splenomegaly noted, no acute findings within abdomen and cholecystectomy noted. 4. Diarrhea: No further diarrhea or cramping since admission. Obtain stool studies if stools start. 5. Atypical chest pain: ACS ruled out, likely secondary to pneumonia and pleuritic chest pain. 6. Elevated BS: X2 random have been elevated above 120, A1c 5.9, continue to monitor. VTE prophylaxis: Lovenox. Dispo: 2-3 days pending improvement. Will arrange follow up with PCP and pulmonology due to recurrent pneumonia, bronchitis and further evaluation for lung disease.
[2017-07-12] MEDS ORDERED: Azithromycin 250 MG Tab PO SCH (09:00)
[2017-07-12] MEDS ORDERED: Fluticasone Propionate Nasal Spray 16 GM Bottle NASBOTH SCH (10:15)
[2017-07-12] MEDS ORDERED: FLUoxetine 20 MG Cap PO SCH (10:31)
[2017-07-12] MEDS ORDERED: cefTRIAXone 1,000 MG in Sodium Chloride 0.9% 50 ML IV SCH (11:30)
[2017-07-12 12:55] VITALS: BP 97/57
[2017-07-12] MEDS: Enoxaparin 40 MG/0.4 ML Syringe SUBCUT SCH (12:56)
== END 2017-07-12 16:15 | disposition home or self-care (01) | DRG 720 ==
LOC: MW.ED 10:25 → MW.MS 12:50 → OBSVTOIN 12:58
PROVIDERS: ADMIT Internal Medicine; ATTEND Internal Medicine
DX: A41.9 Sepsis, unspecified organism (principal); J18.9 Pneumonia, unspecified organism; R19.7 Diarrhea, unspecified; E86.0 Dehydration; R07.89 Other chest pain; K21.9 Gastro-esophageal reflux disease without esophagitis; G43.909 Migraine, unspecified, not intractable, without status migrainosus; F32.9 Major depressive disorder, single episode, unspecified; R10.13 Epigastric pain; R74.0 Nonspecific elevation of levels of transaminase and lactic acid dehydrogenase [LDH]; B96.89 Other specified bacterial agents as the cause of diseases classified elsewhere; H54.7 Unspecified visual loss; Z90.49 Acquired absence of other specified parts of digestive tract; Z88.8 Allergy status to other drugs, medicaments and biological substances; Z79.899 Other long term (current) drug therapy; Z87.891 Personal history of nicotine dependence; Z87.01 Personal history of pneumonia (recurrent)
CPT/HCPCS: 36415; 71046; 71046-26; 76700; 76700-26; 80053; 81001; 82150; 83036; 83605; 83690; 84484; 85025; 86677; 87040; 87070; 87077; 87086; 87205; 87804; 93005; 94640; 96361; 96365; 96375; 99285-25; A9270-GY; G0480; J0456; J0696; J1200; J1650; J1885; J2405; J2765; J2930; J7040; J7050

== ENCOUNTER 2017-09-21 14:03 | Emergency (ER) | payer OTHER, BC ==
[2017-09-21] MEDS ORDERED: Cyclobenzaprine 10 MG Tab PO ONE (14:22)
[2017-09-21] MEDS ORDERED: HYDROmorphone 2 MG/ML SDV IM ONE (14:22)
--- NOTE | 2017-09-21 14:22 | EDM.PDOC ---
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 She woke this morning with severe pain. She took one dose of Advil last night but has not taken anything today due to her boss stating she needed to take a drug test first. Review of systems: As per history of present illness and below otherwise all systems reviewed and negative. Past medical history: As per history of present illness and as reviewed below otherwise noncontributory. Surgical history: As per history of present illness and as reviewed below otherwise noncontributory. Social history: No reported history of drug or alcohol abuse. Family history: As per history of present illness and as reviewed below otherwise noncontributory. Physical exam: General: Well developed, well nourished in NAD HEENT: Atraumatic, normocephalic, pupils reactive, negative for conjunctival pallor or scleral icterus, mucous membranes moist, throat clear, neck supple, nontender, trachea midline. Lungs: Clear to auscultation, breath sounds equal bilaterally, chest nontender. Heart: S1S2, regular, negative for clicks, rubs, or JVD. Abdomen: Soft, nondistended, nontender. Negative for masses or hepatosplenomegaly. Negative for costovertebral tenderness. Pelvis: Stable nontender. 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: Deferred. Rectal: Deferred. Extremities: Atraumatic, negative for cords or calf pain. Neurovascular unremarkable. Neuro: Awake, alert, oriented. Cranial nerves II through XII unremarkable. Cerebellum unremarkable. Motor and sensory unremarkable throughout. Exam nonfocal. Lower extremity reflexes intact, neck pain is elicited with straightening of the left leg Diagnostics: [] Therapeutics: []Dilaudid, Flexeril with improvement of symptoms Impression: []Left-sided sciatica Plan: []Follow-up with primary care, tramadol, Flexeril for pain use ice the back of any metastatic time return if symptoms worsen or change including urinary or fecal incontinence. Definitive disposition and diagnosis as appropriate pending reevaluation and review of above. left lower back Pain Score (Numeric/FACES): 7 - Related Data Allergies Allergy/AdvReac Type Severity Reaction Status Date / Time adhesive tape Allergy Rash Verified 09/21/17 14:18 Home Meds: Home Meds FLUoxetine [PROzac] 40 mg PO BEDTIME 07/11/17 [History] traZODone HCl [Trazodone HCl] 50 mg PO BEDTIME 07/11/17 [History] Cyclobenzaprine [Flexeril] 1 tab PO DAILY 09/21/17 [History] Cyclobenzaprine [Flexeril] 10 mg PO BID PRN #12 tab 09/21/17 [Rx] Ketorolac [Toradol] 1 tab PO DAILY 09/21/17 [History] traMADol HCl [Tramadol HCl] 50 mg PO Q6H PRN #16 tablet 09/21/17 [Rx] Past Medical History HEENT History: Reports: Impaired Vision Other HEENT History: wears glasses, has upper partial denture Cardiovascular History: Reports: None. Denies: Afib, Blood Clots/VTE/DVT, CAD, High Cholesterol, Hypertension, [place] Respiratory History: Reports: Bronchitis, Recurrent, Pneumonia, Recurrent. Denies: Asthma, COPD Gastrointestinal History: Reports: GERD. Denies: GI Bleed, Inflammatory Bowel Disease 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 History: Reports: None. 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 Denies: CVA, Seizure, TIA Psychiatric History: Reports: Depression Endocrine/Metabolic History: Reports: None. 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 Musculoskeletal Surgical History: Reports: Arthroscopic Knee Social & Family History - Family History Family Medical History: Noncontributory - Caffeine Use Caffeine Use: Reports: Coffee - Living Situation & Occupation Occupation: Employed ED ROS GENERAL - Review of Systems Review Of Systems: See Below (See history of present illness) ED EXAM,LOWER BACK PAIN/INJURY - Physical Exam Exam: See Below (History of present illness) Course - Vital Signs Last Recorded V/S: Last Vital Signs Temp 98.2 F 09/21/17 14:19 Pulse 64 09/21/17 14:19 Resp 18 09/21/17 14:19 BP 141/83 H 09/21/17 14:19 Pulse Ox 97 09/21/17 14:19 - Orders/Labs/Meds Meds: Medications Discontinued Medications Generic Name Dose Route Start Last Admin Trade Name Freq PRN Reason Stop Dose Admin Cyclobenzaprine HCl 10 mg 09/21/17 14:22 09/21/17 14:52 Flexeril PO 09/21/17 14:23 10 mg ONETIME ONE Administration Hydromorphone HCl 1 mg 09/21/17 14:22 09/21/17 14:52 Dilaudid IM 09/21/17 14:23 Not Given ONETIME ONE Hydromorphone HCl Confirm 09/21/17 14:43 09/21/17 14:50 Dilaudid Administered 09/21/17 14:44 Not Given Dose 1 mg .ROUTE .STK-MED ONE Hydromorphone HCl 1 mg 09/21/17 14:48 09/21/17 14:53 Dilaudid IM 09/21/17 14:49 1 mg ONETIME ONE Administration Departure - Departure Time of Disposition: 15:12 Disposition: Home, Self-Care 01 Condition: Good Clinical Impression: Left-sided low back pain with sciatica - Discharge Information Prescriptions: Cyclobenzaprine [Flexeril] 10 mg PO BID PRN #12 tab PRN Reason: Pain traMADol HCl [Tramadol HCl] 50 mg PO Q6H PRN #16 tablet PRN Reason: Pain Referrals: PCP,None [Primary Care Provider] - Forms: ED Department Discharge Additional Instructions: The following information is given to patients seen in the emergency department who are being discharged to home. This information is to outline your options for follow-up care. We provide all patients seen in our emergency department with a follow-up referral. The need for follow-up, as well as the timing and circumstances, are variable depending upon the specifics of your emergency department visit. If you don't have a primary care physician on staff, we will provide you with a referral. We always advise you to contact your personal physician following an emergency department visit to inform them of the circumstance of the visit and for follow-up with them and/or the need for any referrals to a consulting specialist. The emergency department will also refer you to a specialist when appropriate. This referral assures that you have the opportunity for follow-up care with a specialist. All of these measure are taken in an effort to provide you with optimal care, which includes your follow-up. Under all circumstances we always encourage you to contact your private physician who remains a resource for coordinating your care. When calling for follow-up care, please make the office aware that this follow-up is from your recent emergency room visit. If for any reason you are refused follow-up, please contact the [facility] Emergency Department at and asked to speak to the emergency department charge nurse. [facility] Primary Care [address] [place] [id number]
[2017-09-21] MEDS ORDERED: HYDROmorphone 1 MG/ML Syringe ONE (14:43)
[2017-09-21] MEDS ORDERED: HYDROmorphone 1 MG/ML Syringe IM ONE (14:48)
[2017-09-21 15:32] VITALS: BP 114/80
== END 2017-09-21 15:30 | disposition home or self-care (01) ==
LOC: MW.ED 14:03
DX: M54.42 Lumbago with sciatica, left side (principal); Z91.048 Other nonmedicinal substance allergy status
CPT/HCPCS: 96372; 99283; A9270; J1170

== ENCOUNTER 2017-11-13 14:56 | Emergency (ER) | payer BC, OTHER ==
[2017-11-13] MEDS ORDERED: cefTRIAXone 1,000 MG in Lidocaine 1% 4 ML IM ONE (15:11)
--- NOTE | 2017-11-13 15:22 | EDM.PDOC ---
ED HPI GENERAL MEDICAL PROBLEM - General Chief Complaint: Bite:Animal, Insect Stated Complaint: POSSIBLE SPIDER BITE Time Seen by Provider: 11/13/17 15:21 Source of Information: Reports: Patient - History of Present Illness INITIAL COMMENTS - FREE TEXT/NARRATIVE: HISTORY AND PHYSICAL: History of present illness: [Patient presents with what is presumed to be a spider bite lesion under her right breast does appear to be an insect bite swarm red small in appearance at current subcentimeter, skin tissue is mildly reddened over the breast and tender near the bite lesion the whole breast is not affected No fever nausea vomiting chills sweats bite lesion occurred yesterday] Review of systems: As per history of present illness and below otherwise all systems reviewed and negative. Past medical history: As per history of present illness and as reviewed below otherwise noncontributory. Surgical history: As per history of present illness and as reviewed below otherwise noncontributory. Social history: No reported history of drug or alcohol abuse. Family history: As per history of present illness and as reviewed below otherwise noncontributory. Physical exam: HEENT: Atraumatic, normocephalic, pupils reactive, negative for conjunctival pallor or scleral icterus, mucous membranes moist, throat clear, neck supple, nontender, trachea midline. Lungs: Clear to auscultation, breath sounds equal bilaterally, chest nontender. Heart: S1S2, regular, negative for clicks, rubs, or JVD. Abdomen: Soft, nondistended, nontender. Negative for masses or hepatosplenomegaly. Negative for costovertebral tenderness. Pelvis: Stable nontender. 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: Deferred. Rectal: Deferred. Extremities: Atraumatic, negative for cords or calf pain. Neurovascular unremarkable. Neuro: Awake, alert, oriented. Cranial nerves II through XII unremarkable. Cerebellum unremarkable. Motor and sensory unremarkable throughout. Exam nonfocal. Skin as per history of present illness otherwise unremarkable Diagnostics: [] clinical Therapeutics: [Gram Rocephin IM] Bactrim double strength by mouth twice a day #20 no refill [facility] [address] Impression: [ cellulitis ] Definitive disposition and diagnosis as appropriate pending reevaluation and review of above. - Related Data Allergies Allergy/AdvReac Type Severity Reaction Status Date / Time adhesive tape Allergy Rash Verified 09/21/17 14:18 Home Meds: Home Meds FLUoxetine [PROzac] 40 mg PO BEDTIME 07/11/17 [History] traZODone HCl [Trazodone HCl] 50 mg PO BEDTIME 07/11/17 [History] Cyclobenzaprine [Flexeril] 1 tab PO DAILY 09/21/17 [History] Ketorolac [Toradol] 1 tab PO DAILY 09/21/17 [History] traMADol HCl [Tramadol HCl] 50 mg PO Q6H PRN #16 tablet 09/21/17 [Rx] Past Medical History HEENT History: Reports: Impaired Vision Other HEENT History: wears glasses, has upper partial denture Cardiovascular History: Reports: None. Denies: Afib, Blood Clots/VTE/DVT, CAD, High Cholesterol, Hypertension, [place] Respiratory History: Reports: Bronchitis, Recurrent, Pneumonia, Recurrent. Denies: Asthma, COPD Gastrointestinal History: Reports: GERD. Denies: GI Bleed, Inflammatory Bowel Disease 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 History: Reports: None. 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 Denies: CVA, Seizure, TIA Psychiatric History: Reports: Depression Endocrine/Metabolic History: Reports: None. 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 Musculoskeletal Surgical History: Reports: Arthroscopic Knee Social & Family History - Family History Family Medical History: Noncontributory - Caffeine Use Caffeine Use: Reports: Coffee - Living Situation & Occupation Occupation: Employed ED ROS GENERAL - Review of Systems Review Of Systems: See Below ED EXAM, ANIMAL BITE - Physical Exam Exam: See Below Course - Vital Signs Last Recorded V/S: Last Vital Signs Temp 97.6 F 11/13/17 15:22 Pulse 100 11/13/17 15:22 Resp 20 11/13/17 15:22 BP 134/91 H 11/13/17 15:22 Pulse Ox 98 11/13/17 15:22 - Orders/Labs/Meds Meds: Medications Discontinued Medications Generic Name Dose Route Start Last Admin Trade Name Freq PRN Reason Stop Dose Admin Ceftriaxone Sodium 1,000 mg/ 4 mls @ 4 mls/sec 11/13/17 15:11 Lidocaine HCl IM 11/13/17 15:12 ONETIME ONE Departure - Departure Time of Disposition: 15:30 Disposition: Home, Self-Care 01 Condition: Good Clinical Impression: Cellulitis Qualifiers: Site of cellulitis: extremity Site of cellulitis of extremity: upper extremity Laterality: right Qualified Code(s): L03.113 - Cellulitis of right upper limb - Discharge Information Referrals: PCP,None [Primary Care Provider] - Forms: ED Department Discharge Additional Instructions: Medication as prescribed Return if symptoms persist or worsen Follow-up primary care in 2 weeks sooner as needed [facility] - Primary Care [address] [place] [address] The following information is given to patients seen in the emergency department who are being discharged to home. This information is to outline your options for follow-up care. We provide all patients seen in our emergency department with a follow-up referral. The need for follow-up, as well as the timing and circumstances, are variable depending upon the specifics of your emergency department visit. If you don't have a primary care physician on staff, we will provide you with a referral. We always advise you to contact your personal physician following an emergency department visit to inform them of the circumstance of the visit and for follow-up with them and/or the need for any referrals to a consulting specialist. The emergency department will also refer you to a specialist when appropriate. This referral assures that you have the opportunity for follow-up care with a specialist. All of these measure are taken in an effort to provide you with optimal care, which includes your follow-up. Under all circumstances we always encourage you to contact your private physician who remains a resource for coordinating your care. When calling for follow-up care, please make the office aware that this follow-up is from your recent emergency room visit. If for any reason you are refused follow-up, please contact the [facility] emergency department at and asked to speak to the emergency department charge nurse.
[2017-11-13 15:27] VITALS: BP 134/91
== END 2017-11-13 15:50 | disposition home or self-care (01) ==
LOC: MW.ED 14:56
DX: L03.113 Cellulitis of right upper limb (principal)
CPT/HCPCS: 96372; 99282; J0696; J2001

== ENCOUNTER 2018-07-26 09:48 | Day surgery (SDC) | payer BC, OTHER ==
[~2018-07-26 09:48] MED LIST: Lactated Ringers 1,000 ML IV SCH
[2018-07-26] MEDS ORDERED: Lidocaine 2% 5 ML SDV ONE (10:14)
[2018-07-26] MEDS ORDERED: Midazolam 1 MG/ML 2 ML SDV ONE (10:14)
[2018-07-26] MEDS ORDERED: fentaNYL 100 MCG/2 ML SDV ONE (10:14)
[2018-07-26] MEDS ORDERED: Propofol 200 MG/20 ML SDV ONE (10:14)
--- NOTE | 2018-07-26 10:22 | PCM.PREANE ---
Preanesthetic Assessment - Anesthesia/Transfusion/Family Hx Anesthesia History: Prior Anesthesia Without Reaction Family History of Anesthesia Reaction: No Transfusion History: No Prior Transfusion(s) Intubation History: Unknown - Review of Systems General: No Symptoms Pulmonary: No Symptoms Cardiovascular: No Symptoms Gastrointestinal: Difficulty Swallowing Neurological: No Symptoms Other: Reports: None - Physical Assessment NPO Status Date: 07/25/18 Height: 5 ft 7 in Weight: 75.75 kg ASA Class: 2 Dentition: Reports: Partial (upper, left at home) ROM/Head Extension: Full Lungs: Clear to Auscultation, Normal Respiratory Effort Cardiovascular: Regular Rate, Regular Rhythm - Allergies Allergies/Adverse Reactions: Allergies Allergy/AdvReac Type Severity Reaction Status Date / Time adhesive tape Allergy Rash Verified 07/23/18 11:15 - Blood Blood Available: No - Anesthesia Plan Pre-Op Medication Ordered: None - Acknowledgements Anesthesia Type Planned: General Anesthesia Pt an Appropriate Candidate for the Planned Anesthesia: Yes Alternatives and Risks of Anesthesia Discussed w Pt/Guardian: Yes Pt/Guardian Understands and Agrees with Anesthesia Plan: Yes PreAnesthesia Questionnaire HEENT History: Reports: Other (See Below) Other HEENT History: wears glasses, has upper partial Cardiovascular History: Reports: None Respiratory History: Reports: None Gastrointestinal History: Reports: GERD, Other (See Below) Other Gastrointestinal History: dysphagia 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 History: 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: Musculoskeletal History: Reports: Back Pain, Chronic, Osteoarthritis, Other ( See Below) Neurological History: Reports: Migraines Psychiatric History: Reports: Anxiety, Depression Endocrine/Metabolic History: Reports: None Hematologic History: Reports: None Immunologic History: Reports: None Oncologic (Cancer) History: Reports: None Dermatologic History: Reports: None - Infectious Disease History Infectious Disease History: Reports: None - Past Surgical History Head Surgeries/Procedures: Reports: None HEENT Surgical History: Reports: None Cardiovascular Surgical History: Reports: None Respiratory Surgical History: Reports: None GI Surgical History: Reports: Appendectomy, Cholecystectomy, Colonoscopy, EGD, Hernia, Inguinal Female Surgical History: Reports: Hysterectomy, Salpingo-Oophorectomy, Other (See Below) Other Female Surgeries/Procedures: gynecologic laparoscopies Endocrine Surgical History: Reports: None Neurological Surgical History: Reports: None Musculoskeletal Surgical History: Reports: Arthroscopic Knee Oncologic Surgical History: Reports: None Dermatological Surgical History: Reports: None - SUBSTANCE USE Smoking Status *Q: Former Smoker Recreational Drug Use History: No - HOME MEDS Home Medications: Home Meds Methocarbamol 750 mg PO TID PRN 02/07/18 [History] Rizatriptan Benzoate [Rizatriptan] 10 mg PO DAILY PRN 02/07/18 [History] Cholecalciferol (Vitamin D3) [Vitamin D3] 50,000 units PO WEEKLY 07/23/18 [ History] Ibuprofen 1 - 2 tab PO ASDIRECTED PRN 07/23/18 [History] Omeprazole 40 mg PO DAILY 07/23/18 [History] traZODone HCl [Trazodone HCl] 50 mg PO BEDTIME 07/23/18 [History] - CURRENT (IN HOUSE) MEDS Current Meds: Current Medications Lactated Ringer's (Ringers, Lactated) 1,000 mls @ 125 mls/hr IV ASDIRECTED ARETHA Discontinued Medications Fentanyl (Sublimaze) Confirm Administered Dose 100 mcg .ROUTE .STK-MED ONE Stop: 07/26/18 10:15 Lidocaine (Xylocaine-Mpf 2%) Confirm Administered Dose 5 ml .ROUTE .STK-MED ONE Stop: 07/26/18 10:15 Midazolam HCl (Versed 1 Mg/Ml) Confirm Administered Dose 2 mg .ROUTE .STK-MED ONE Stop: 07/26/18 10:15 Propofol (Diprivan 20 Ml) Confirm Administered Dose 400 mg .ROUTE .STK-MED ONE Stop: 07/26/18 10:15
--- NOTE | 2018-07-26 11:38 | PCM.OPNOTE ---
- General Post-Op/Procedure Note Date of Surgery/Procedure: 07/26/18 Operative Procedure(s): Esophagogastroduodenoscopy with gastric and esophageal biopsies Pre Op Diagnosis: Progressive dysphagia Post-Op Diagnosis: Chronic gastritis. Hiatal hernia with distal esophagitis. Anesthesia Technique: MAC (ASA II) Primary Surgeon: Joey Tran Condition: Good Free Text/Narrative:: DICTATION [id number] CPT CODE 77447
[2018-07-26] MEDS ORDERED: Lactated Ringers 1,000 ML IV SCH (11:45)
[2018-07-26] MEDS ORDERED: Ondansetron 4 MG/2 ML SDV IVPUSH ONE (11:46)
--- NOTE | 2018-07-26 11:59 | PCM.POSTAN ---
POST ANESTHESIA ASSESSMENT - MENTAL STATUS Mental Status: Alert, Oriented - RESPIRATORY Respiratory Status: Respiratory Rate WNL, Airway Patent, O2 Saturation Stable - CARDIOVASCULAR CV Status: Pulse Rate WNL, Blood Pressure Stable - GASTROINTESTINAL GI Status: [place] - POST OP HYDRATION Hydration Status: Adequate & Stable
[2018-07-26 12:11] VITALS: BP 116/77
--- NOTE | 2018-07-26 12:36 | OR ---
SURGEON: Joey Tran M.D. DATE OF PROCEDURE: 07/26/2018 OPERATION PERFORMED: Esophagogastroduodenoscopy with gastric and esophageal biopsies. ANESTHESIA: MAC. ASA CLASSIFICATION: II. PREOPERATIVE DIAGNOSIS: Progressive dysphagia. POSTOPERATIVE DIAGNOSES: 1. Moderate gastritis. 2. Hiatal hernia with distal esophagitis. DESCRIPTION OF PROCEDURE: The patient was taken to the endoscopy room and positioned on the endoscopy table in the supine position. Time-out was called for appropriate identification of the patient and procedure. Monitored anesthesia care was provided. The bite block was placed between the patient's teeth. The gastroscope was inserted through the bite block and advanced into the oropharynx and subsequently through the esophagus and stomach into the duodenum. Examination was now carried out in a retrograde fashion. The duodenum shows no acute inflammatory changes or ulcerations. Stomach does show [id number] gastritis. Antral biopsies were obtained to look for the presence of Helicobacter pylori. The gastroscope was retroflexed to visualize the proximal stomach. The patient does have a small hiatal hernia that can be seen from below. The gastroscope was then straightened and slowly withdrawn visualizing the greater and lesser curvatures as the scope was withdrawn. The patient does demonstrate a small hiatal hernia which was best seen in a forward viewing fashion. In addition, she does show some moderate distal esophagitis. Separate biopsies were obtained of the distal esophagus. It should also be noted that antral biopsies were obtained as stated. Once the biopsies were done, the esophagus was carefully visualized as the scope was withdrawn. The esophagus demonstrated good contractility. No mid or proximal lesions were identified. The vocal cords were visualized as the scope was withdrawn and noted to move symmetrically. The gastroscope was then removed with the patient having tolerated the procedure well. She was taken to recovery room in stable condition. YESIKA DUNLAP /[id number] GARTH
--- NOTE | 2018-07-26 13:05 | PCM48HPAN ---
Post Anesthesia Note - EVALUATION WITHIN 48HRS OF ANESTHETIC Vital Signs in Normal Range: Yes Patient Participated in Evaluation: Yes Respiratory Function Stable: Yes Airway Patent: Yes Cardiovascular Function Stable: Yes Hydration Status Stable: Yes Pain Control Satisfactory: Yes Nausea and Vomiting Control Satisfactory: Yes Mental Status Recovered: Yes Resp Rate: 16
== END 2018-07-26 12:22 | disposition home or self-care (01) ==
LOC: MW.SDS 09:48
PROVIDERS: ATTEND Surgery
DX: K29.50 Unspecified chronic gastritis without bleeding (principal); K21.0 Gastro-esophageal reflux disease with esophagitis; K44.9 Diaphragmatic hernia without obstruction or gangrene; G89.4 Chronic pain syndrome; G43.909 Migraine, unspecified, not intractable, without status migrainosus; R10.31 Right lower quadrant pain; M19.90 Unspecified osteoarthritis, unspecified site; Z87.891 Personal history of nicotine dependence; Z79.899 Other long term (current) drug therapy; Z91.048 Other nonmedicinal substance allergy status
CPT/HCPCS: 43239; J2001; J2250; J2405; J2704; J3010; J7120; 88305; 88312

== ENCOUNTER 2018-11-18 16:51 | Observation (INO) | payer BC ==
[2018-11-18] MEDS ORDERED: Sodium Chloride 0.9% 2.5 ML Syringe FLUSH PRN (17:00)
[2018-11-18] MEDS ORDERED: Nitroglycerin 2% Oint 1 GM UD Packet TOP ONE (17:00)
[2018-11-18] MEDS ORDERED: Sodium Chloride 0.9% 10 ML Syringe FLUSH PRN (17:00)
[2018-11-18] MEDS ORDERED: Morphine 2 MG/ML Syringe IVPUSH ONE (17:01)
[2018-11-18] MEDS ORDERED: LORazepam 2 MG/ML SDV IVPUSH ONE (17:01)
[2018-11-18] MEDS ORDERED: Ondansetron 4 MG/2 ML SDV IVPUSH ONE (17:02)
--- NOTE | 2018-11-18 17:03 | EDM.PDOC ---
ED HPI GENERAL MEDICAL PROBLEM - General Chief Complaint: Chest Pain Stated Complaint: SPOKE TO NURSE Time Seen by Provider: 11/18/18 16:58 - History of Present Illness INITIAL COMMENTS - FREE TEXT/NARRATIVE: HISTORY AND PHYSICAL: History of present illness: Patient 53-year-old white female who presents concerned chest pain it's been off and on for a week that's left-sided with radiation to her left shoulder without associated shortness breath palpitations or diaphoresis she denies nausea vomiting denies history no coronary artery disease denies prior stroke denies hypertension or diabetes Review of systems: As per history of present illness and below otherwise all systems reviewed and negative. Past medical history: As per history of present illness and as reviewed below otherwise noncontributory. Surgical history: As per history of present illness and as reviewed below otherwise noncontributory. Social history: No reported history of drug or alcohol abuse. Family history: As per history of present illness and as reviewed below otherwise noncontributory. Physical exam: HEENT: Atraumatic, normocephalic, pupils reactive, negative for conjunctival pallor or scleral icterus, mucous membranes moist, throat clear, neck supple, nontender, trachea midline. Lungs: Clear to auscultation, breath sounds equal bilaterally, chest nontender. Heart: S1S2, regular, negative for clicks, rubs, or JVD. Abdomen: Soft, nondistended, nontender. Negative for masses or hepatosplenomegaly. Negative for costovertebral tenderness. Pelvis: Stable nontender. 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: Deferred. Rectal: Deferred. Extremities: Atraumatic, negative for cords or calf pain. Neurovascular unremarkable. Neuro: Awake, alert, oriented. Cranial nerves II through XII unremarkable. Cerebellum unremarkable. Motor and sensory unremarkable throughout. Exam nonfocal. Diagnostics: CBC CMP troponin PT/INR chest x-ray EKG Therapeutics: IV O2 monitor aspirin 324 mg Nitropaste 1 inch Ativan 1 mg IV morphine sulfate 2 g IV Zofran 4 mg IV Impression: #1 chest pain Definitive disposition and diagnosis as appropriate pending reevaluation and review of above. Upper Abdominal Pain Score (Numeric/FACES): 8 - Related Data Allergies Allergy/AdvReac Type Severity Reaction Status Date / Time adhesive tape Allergy Rash Verified 11/18/18 16:53 Home Meds: Home Meds Methocarbamol 750 mg PO TID PRN 11/08/18 [History] Rizatriptan Benzoate [Rizatriptan] 10 mg PO DAILY PRN 02/07/18 [History] Ibuprofen 1 - 2 tab PO ASDIRECTED PRN 07/23/18 [History] Omeprazole 40 mg PO DAILY 07/23/18 [History] traZODone HCl [Trazodone HCl] 50 mg PO BEDTIME 07/23/18 [History] Past Medical History HEENT History: Reports: Other (See Below) Other HEENT History: wears glasses, has upper partial Cardiovascular History: Reports: None Respiratory History: Reports: None Gastrointestinal History: Reports: GERD, Other (See Below) Other Gastrointestinal History: dysphagia 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 History: Reports: Renal Calculus WORK[employer]GER History: Reports: Musculoskeletal History: Reports: Back Pain, Chronic, Osteoarthritis, Other ( See Below) Neurological History: Reports: Migraines Psychiatric History: Reports: Anxiety, Depression Endocrine/Metabolic History: Reports: None Hematologic History: Reports: None Immunologic History: Reports: None Oncologic (Cancer) History: Reports: None Dermatologic History: Reports: None - Infectious Disease History Infectious Disease History: Reports: Chicken Pox - Past Surgical History Head Surgeries/Procedures: Reports: None HEENT Surgical History: Reports: None Cardiovascular Surgical History: Reports: None Respiratory Surgical History: Reports: None GI Surgical History: Reports: Appendectomy, Cholecystectomy, Colonoscopy, EGD, Hernia, Inguinal Female Surgical History: Reports: Hysterectomy, Salpingo-Oophorectomy, Other (See Below) Other Female Surgeries/Procedures: gynecologic laparoscopies Endocrine Surgical History: Reports: None Neurological Surgical History: Reports: None Musculoskeletal Surgical History: Reports: Arthroscopic Knee Oncologic Surgical History: Reports: None Dermatological Surgical History: Reports: None Social & Family History - Family History Family Medical History: Noncontributory - Tobacco Use Smoking Status *Q: Former Smoker Used Tobacco, but Quit: Yes Month/Year Tobacco Last Used: 2014 - Caffeine Use Caffeine Use: Reports: Coffee, Tea - Recreational Drug Use Recreational Drug Use: No - Living Situation & Occupation Occupation: Employed ED ROS GENERAL - Review of Systems Review Of Systems: ROS reveals no pertinent complaints other than HPI. ED EXAM, GENERAL - Physical Exam Exam: See Below (See dictation) Course - Vital Signs Last Recorded V/S: Last Vital Signs Temp 36.3 C 11/18/18 16:54 Pulse 81 11/18/18 17:24 Resp 18 11/18/18 17:24 BP 151/89 H 11/18/18 17:24 Pulse Ox 95 11/18/18 17:24 - Orders/Labs/Meds Orders: Active Orders 24 hr Category Date Time Status EKG Documentation Completion [RC] STAT Care 11/18/18 17:00 Active Chest 1V Frontal [CR] Stat Exams 11/18/18 17:00 Ordered COMPREHENSIVE METABOLIC PN,CMP [CHEM] Stat Lab 11/18/18 17:16 Received TROPONIN I [CHEM] Stat Lab 11/18/18 17:16 Received Sodium Chloride 0.9% [Saline Flush] Med 11/18/18 17:00 Active 10 ml FLUSH ASDIRECTED PRN Sodium Chloride 0.9% [Saline Flush] Med 11/18/18 17:00 Active 2.5 ml FLUSH ASDIRECTED PRN Saline Lock Insert [OM.PC] Stat Oth 11/18/18 17:00 Ordered Medication Orders Sodium Chloride (Saline Flush) 10 ml FLUSH ASDIRECTED PRN PRN Reason: Keep Vein Open Sodium Chloride (Saline Flush) 2.5 ml FLUSH ASDIRECTED PRN PRN Reason: Keep Vein Open Labs: Laboratory Tests 11/18/18 11/18/18 Range/Units 17:16 17:16 WBC 8.54 (4.0-11.0) K/uL RBC 4.50 (4.30-5.90) M/uL Hgb 13.2 (12.0-16.0) g/dL Hct 38.6 (36.0-46.0) % MCV 85.8 (80.0-98.0) fL MCH 29.3 (27.0-32.0) pg MCHC 34.2 (31.0-37.0) g/dL RDW Std Deviation 40.6 (28.0-62.0) fl RDW Coeff of Missy 13 (11.0-15.0) % Plt Count 359 (150-400) K/uL MPV 9.50 (7.40-12.00) fL Neut % (Auto) 62.9 (48.0-80.0) % Lymph % (Auto) 28.9 (16.0-40.0) % [place] % (Auto) 6.6 (0.0-15.0) % Eos % (Auto) 0.9 (0.0-7.0) % Baso % (Auto) 0.7 (0.0-1.5) % Neut # (Auto) 5.4 (1.4-5.7) K/uL Lymph # (Auto) 2.5 H (0.6-2.4) K/uL [place] # (Auto) 0.6 (0.0-0.8) K/uL Eos # (Auto) 0.1 (0.0-0.7) K/uL Baso # (Auto) 0.1 (0.0-0.1) K/uL Nucleated RBC % 0.0 /100WBC Nucleated RBCs # 0 K/uL INR 0.96 Meds: Medications Generic Name Dose Route Start Last Admin Trade Name Freq PRN Reason Stop Dose Admin Sodium Chloride 10 ml 11/18/18 17:00 Saline Flush FLUSH ASDIRECTED PRN Keep Vein Open Sodium Chloride 2.5 ml 11/18/18 17:00 Saline Flush FLUSH ASDIRECTED PRN Keep Vein Open Discontinued Medications Generic Name Dose Route Start Last Admin Trade Name Freq PRN Reason Stop Dose Admin Aspirin 324 mg 11/18/18 17:30 11/18/18 17:34 Aspirin PO 11/18/18 17:31 324 mg ONETIME ONE Administration Lorazepam 1 mg 11/18/18 17:01 11/18/18 17:21 Ativan IVPUSH 11/18/18 17:02 1 mg ONETIME ONE Administration Morphine Sulfate 2 mg 11/18/18 17:01 11/18/18 17:19 Morphine IVPUSH 11/18/18 17:02 2 mg ONETIME ONE Administration Nitroglycerin 1 gm 11/18/18 17:00 11/18/18 17:09 Nitro-Bid 2% TOP 11/18/18 17:01 1 gm ONETIME ONE Administration Ondansetron HCl 4 mg 11/18/18 17:02 11/18/18 17:16 Zofran IVPUSH 11/18/18 17:03 4 mg ONETIME ONE Administration Departure - Departure Time of Disposition: 17:45 Disposition: Refer to Observation Condition: Good Clinical Impression: Chest pain - Discharge Information Referrals: PCP,Unknown [Primary Care Provider] - Forms: ED Department Discharge - My Orders Last 24 Hours: My Active Orders 11/18/18 17:00 EKG Documentation Completion [RC] STAT Chest 1V Frontal [CR] Stat Sodium Chloride 0.9% [Saline Flush] 10 ml FLUSH ASDIRECTED PRN Sodium Chloride 0.9% [Saline Flush] 2.5 ml FLUSH ASDIRECTED PRN Saline Lock Insert [OM.PC] Stat 11/18/18 17:16 COMPREHENSIVE METABOLIC PN,CMP [CHEM] Stat TROPONIN I [CHEM] Stat - Assessment/Plan Last 24 Hours: My Active Orders 11/18/18 17:00 EKG Documentation Completion [RC] STAT Chest 1V Frontal [CR] Stat Sodium Chloride 0.9% [Saline Flush] 10 ml FLUSH ASDIRECTED PRN Sodium Chloride 0.9% [Saline Flush] 2.5 ml FLUSH ASDIRECTED PRN Saline Lock Insert [OM.PC] Stat 11/18/18 17:16 COMPREHENSIVE METABOLIC PN,CMP [CHEM] Stat TROPONIN I [CHEM] Stat
[2018-11-18] MEDS ORDERED: Aspirin 81 MG Tab.Chew PO ONE (17:30)
[2018-11-18 17:51] LABS: CHLORIDE,CL 106 mmol/L (98-107); SODIUM,NA 141 mmol/L (136-145)
[2018-11-18] MEDS ORDERED: Ibuprofen 800 MG Tab PO PRN (17:57)
[2018-11-18] MEDS ORDERED: Morphine 10 MG/ML Syringe IVPUSH PRN (17:57)
[2018-11-18] MEDS ORDERED: Temazepam 15 MG Cap PO PRN (17:57)
[2018-11-18] MEDS ORDERED: Acetaminophen 325 MG Tab PO PRN (17:57)
[2018-11-18] MEDS ORDERED: Ondansetron 4 MG/2 ML SDV IVPUSH PRN (17:57)
[2018-11-18] MEDS ORDERED: Ondansetron 4 MG Tab.DIS PO PRN (17:57)
[2018-11-18] MEDS ORDERED: Enoxaparin 40 MG/0.4 ML Syringe SUBCUT SCH (18:00)
[2018-11-18] MEDS ORDERED: Sodium Chloride 0.9% 1,000 ML IV STA (18:05)
[2018-11-18] MEDS ORDERED: Alum Hydrox/Mag Hydrox/Simeth 15 ML, Metoclopramide 5 MG, Lidocaine 2% 5 ML PO ONE ×3 (18:05)
--- NOTE | 2018-11-18 18:13 | PCM.HP.2 ---
<Haresh Shearer - Last Filed: 11/18/18 18:16> H&P History of Present Illness - General Date of Service: 11/18/18 Admit Problem/Dx: Admission Diagnosis/Problem Admission Diagnosis/Problem Chest pain - History of Present Illness Initial Comments - Free Text/Narative: 53 y/o female presenting today to the ER complaining of epigastric pain radiating to left shoulder. Patient states that for the past few days she has been having on and off diarrhea and some epigastric pain. The diarrhea has resolved, however, today she was concerned since she started having epigastric pain rated 8/10, lasting for few seconds and then radiating to left chest and shoulder. No nausea or vomiting. No fevers, cough. Denies any blood in stool. Denies any personal history of heart disease, diabetes, dyslipidemia. Former smoker. Last drink was few days ago. Drank about 3-4 hard liquor drinks. Has been taking omeprazole on and off. Denies any acid reflux. No correlation with pain and food intake. Upper Abdominal Pain Score (Numeric/FACES): 8 - Related Data Allergies/Adverse Reactions: Allergies Allergy/AdvReac Type Severity Reaction Status Date / Time adhesive tape Allergy Rash Verified 11/19/18 00:29 Home Medications: Home Meds Methocarbamol 750 mg PO TID PRN 02/07/18 [History] Rizatriptan Benzoate [Rizatriptan] 10 mg PO DAILY PRN 02/07/18 [History] Ibuprofen 1 - 2 tab PO ASDIRECTED PRN 07/23/18 [History] Omeprazole 40 mg PO DAILY 07/23/18 [History] traZODone HCl [Trazodone HCl] 50 mg PO BEDTIME 07/23/18 [History] Past Medical History HEENT History: Reports: Other (See Below) Other HEENT History: wears glasses, has upper partial Cardiovascular History: Reports: None Respiratory History: Reports: None Gastrointestinal History: Reports: GERD, Other (See Below) Other Gastrointestinal History: dysphagia 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 History: Reports: Renal Calculus SIGNALMAN History: Reports: Musculoskeletal History: Reports: Back Pain, Chronic, Osteoarthritis, Other ( See Below) Neurological History: Reports: Migraines Psychiatric History: Reports: Anxiety, Depression Endocrine/Metabolic History: Reports: None Hematologic History: Reports: None Immunologic History: Reports: None Oncologic (Cancer) History: Reports: None Dermatologic History: Reports: None - Infectious Disease History Infectious Disease History: Reports: Chicken Pox - Past Surgical History Head Surgeries/Procedures: Reports: None HEENT Surgical History: Reports: None Cardiovascular Surgical History: Reports: None Respiratory Surgical History: Reports: None GI Surgical History: Reports: Appendectomy, Cholecystectomy, Colonoscopy, EGD, Hernia, Inguinal Female Surgical History: Reports: Hysterectomy, Salpingo-Oophorectomy, Other (See Below) Other Female Surgeries/Procedures: gynecologic laparoscopies Endocrine Surgical History: Reports: None Neurological Surgical History: Reports: None Musculoskeletal Surgical History: Reports: Arthroscopic Knee Oncologic Surgical History: Reports: None Dermatological Surgical History: Reports: None Social & Family History - Family History Family Medical History: Noncontributory - Tobacco Use Smoking Status *Q: Former Smoker Used Tobacco, but Quit: Yes Month/Year Tobacco Last Used: 2014 - Caffeine Use Caffeine Use: Reports: Coffee, Tea - Recreational Drug Use Recreational Drug Use: No - Living Situation & Occupation Occupation: Employed H&P Review of Systems - Review of Systems: Review Of Systems: ROS reveals no pertinent complaints other than HPI. Exam - Exam Exam: See Below - Vital Signs Vital Signs: Last Vital Signs Temp 36.3 C 11/18/18 16:54 Pulse 81 11/18/18 17:24 Resp 18 11/18/18 17:24 BP 151/89 H 11/18/18 17:24 Pulse Ox 95 11/18/18 17:24 Weight: 74.389 kg - Exam General: Alert, Oriented, Cooperative Lungs: Clear to Auscultation, Normal Respiratory Effort. No: Crackles, Wheezing Cardiovascular: Regular Rate, Regular Rhythm GI/Abdominal Exam: Soft, No Distention, Other (tender epigastric area. no rebound. hypoactive bowel sounds.) Extremities: Normal Inspection, No Pedal Edema Skin: Warm, Dry Neuro Extensive - Mental Status: Alert, Oriented x3 - Patient Data Lab Results Last 24 hrs: Laboratory Results - last 24 hr 11/18/18 11/18/18 11/18/18 Range/Units 17:16 17:16 17:16 WBC 8.54 (4.0-11.0) K/uL RBC 4.50 (4.30-5.90) M/uL Hgb 13.2 (12.0-16.0) g/dL Hct 38.6 (36.0-46.0) % MCV 85.8 (80.0-98.0) fL MCH 29.3 (27.0-32.0) pg MCHC 34.2 (31.0-37.0) g/dL RDW Std Deviation 40.6 (28.0-62.0) fl RDW Coeff of Missy 13 (11.0-15.0) % Plt Count 359 (150-400) K/uL MPV 9.50 (7.40-12.00) fL Neut % (Auto) 62.9 (48.0-80.0) % Lymph % (Auto) 28.9 (16.0-40.0) % [place] % (Auto) 6.6 (0.0-15.0) % Eos % (Auto) 0.9 (0.0-7.0) % Baso % (Auto) 0.7 (0.0-1.5) % Neut # (Auto) 5.4 (1.4-5.7) K/uL Lymph # (Auto) 2.5 H (0.6-2.4) K/uL [place] # (Auto) 0.6 (0.0-0.8) K/uL Eos # (Auto) 0.1 (0.0-0.7) K/uL Baso # (Auto) 0.1 (0.0-0.1) K/uL Nucleated RBC % 0.0 /100WBC Nucleated RBCs # 0 K/uL INR 0.96 Sodium 141 (136-145) mmol/L Potassium 3.9 (3.5-5.1) mmol/L Chloride 106 (98-107) mmol/L Carbon Dioxide 22.1 (21.0-32.0) mmol/L BUN 26 H (7.0-18.0) mg/dL Creatinine 0.9 (0.6-1.0) mg/dL Est Cr Clr Drug Dosing 69.49 mL/min Estimated GFR (MDRD) > 60.0 ml/min Glucose 94 (74-106) mg/dL Calcium 9.7 (8.5-10.1) mg/dL Total Bilirubin 0.2 (0.2-1.0) mg/dL AST 12 L (15-37) IU/L ALT 23 (14-63) IU/L Alkaline Phosphatase 85 (46-116) U/L Troponin I < 0.050 (0.000-0.056) ng/mL Total Protein 6.7 (6.4-8.2) g/dL Albumin 3.7 (3.4-5.0) g/dL Globulin 3.0 (2.6-4.0) g/dL Albumin/Globulin Ratio 1.2 (0.9-1.6) Lipase (73-393) U/L 11/18/18 Range/Units 17:16 WBC (4.0-11.0) K/uL RBC (4.30-5.90) M/uL Hgb (12.0-16.0) g/dL Hct (36.0-46.0) % MCV (80.0-98.0) fL MCH (27.0-32.0) pg MCHC (31.0-37.0) g/dL RDW Std Deviation (28.0-62.0) fl RDW Coeff of Missy (11.0-15.0) % Plt Count (150-400) K/uL MPV (7.40-12.00) fL Neut % (Auto) (48.0-80.0) % Lymph % (Auto) (16.0-40.0) % [place] % (Auto) (0.0-15.0) % Eos % (Auto) (0.0-7.0) % Baso % (Auto) (0.0-1.5) % Neut # (Auto) (1.4-5.7) K/uL Lymph # (Auto) (0.6-2.4) K/uL [place] # (Auto) (0.0-0.8) K/uL Eos # (Auto) (0.0-0.7) K/uL Baso # (Auto) (0.0-0.1) K/uL Nucleated RBC % /100WBC Nucleated RBCs # K/uL INR Sodium (136-145) mmol/L Potassium (3.5-5.1) mmol/L Chloride (98-107) mmol/L Carbon Dioxide (21.0-32.0) mmol/L BUN (7.0-18.0) mg/dL Creatinine (0.6-1.0) mg/dL Est Cr Clr Drug Dosing mL/min Estimated GFR (MDRD) ml/min Glucose (74-106) mg/dL Calcium (8.5-10.1) mg/dL Total Bilirubin (0.2-1.0) mg/dL AST (15-37) IU/L ALT (14-63) IU/L Alkaline Phosphatase (46-116) U/L Troponin I (0.000-0.056) ng/mL Total Protein (6.4-8.2) g/dL Albumin (3.4-5.0) g/dL Globulin (2.6-4.0) g/dL Albumin/Globulin Ratio (0.9-1.6) Lipase 124 (73-393) U/L Result Diagrams: 11/18/18 17:16 11/18/18 17:16 Problem List Initiated/Reviewed/Updated: Yes Orders Last 24hrs: Active Orders 24 hr Category Date Time Status Patient Status [ADT] Stat ADT 11/18/18 17:45 Active Cardiac Monitoring [RC] CONTINUOUS Care 11/18/18 17:58 Ordered EKG Documentation Completion [RC] STAT Care 11/18/18 17:00 Active Intake and Output [RC] QSHIFT Care 11/18/18 17:58 Ordered Oxygen Therapy [RC] PRN Care 11/18/18 17:58 Ordered Up ad Maya [RC] ASDIRECTED Care 11/18/18 17:57 Ordered VTE/DVT Education [RC] PER UNIT ROUTINE Care 11/18/18 17:58 Ordered Vital Signs [RC] Q4H Care 11/18/18 17:58 Ordered Regular Diet [DIET] Diet 11/18/18 Dinner Ordered Chest 1V Frontal [CR] Stat Exams 11/18/18 17:00 Taken CBC WITH AUTO DIFF [HEME] AM Lab 11/19/18 05:11 Ordered COMPREHENSIVE METABOLIC PN,CMP [CHEM] AM Lab 11/19/18 05:11 Ordered H PYLORI STOOL ANTIGEN [MREF] Stat Lab 11/18/18 18:02 Ordered TROPONIN I [CHEM] Q6H Lab 11/18/18 23:00 Ordered TROPONIN I [CHEM] Q6H Lab 11/19/18 05:00 Ordered Acetaminophen [Tylenol] Med 11/18/18 17:57 Ordered 650 mg PO Q4H PRN Enoxaparin [Lovenox] Med 11/18/18 18:00 Ordered 40 mg SUBCUT Q24H Ibuprofen [Motrin] Med 11/18/18 17:57 Ordered 800 mg PO Q6H PRN Morphine Med 11/18/18 17:57 Ordered 2 mg IVPUSH Q2H PRN Ondansetron [Zofran ODT] Med 11/18/18 17:57 Ordered 4 mg PO Q4H PRN Ondansetron [Zofran] Med 11/18/18 17:57 Ordered 4 mg IVPUSH Q4H PRN Pantoprazole [ProTONIX] Med 11/19/18 07:30 Ordered 40 mg PO ACBREAKFAST Sodium Chloride 0.9% [Normal Saline] 1,000 ml Med 11/18/18 18:05 Ordered IV NOW Sodium Chloride 0.9% [Saline Flush] Med 11/18/18 17:00 Active 10 ml FLUSH ASDIRECTED PRN Sodium Chloride 0.9% [Saline Flush] Med 11/18/18 17:00 Active 2.5 ml FLUSH ASDIRECTED PRN Temazepam [Restoril] Med 11/18/18 17:57 Ordered 15 mg PO BEDTIME PRN traZODone Med 11/18/18 21:00 Ordered 50 mg PO BEDTIME Saline Lock Insert [OM.PC] Stat Oth 11/18/18 17:00 Ordered Resuscitation Status Routine Resus Stat 11/18/18 17:57 Ordered Medication Orders Acetaminophen (Tylenol) 650 mg PO Q4H PRN PRN Reason: Pain (Mild 1-3)/fever Enoxaparin Sodium (Lovenox) 40 mg SUBCUT Q24H ARETHA Sodium Chloride (Normal Saline) 1,000 mls @ 100 mls/hr IV NOW STA Stop: 11/19/18 04:04 Ibuprofen (Motrin) 800 mg PO Q6H PRN PRN Reason: Pain (mild 1-3) Morphine Sulfate (Morphine) 2 mg IVPUSH Q2H PRN PRN Reason: Pain (severe 7-10) Stop: 11/19/18 17:59 Ondansetron HCl (Zofran Odt) 4 mg PO Q4H PRN PRN Reason: nausea, able to take PO Ondansetron HCl (Zofran) 4 mg IVPUSH Q4H PRN PRN Reason: Nausea Pantoprazole Sodium (Protonix) 40 mg PO ACBREAKFAST ARETHA Sodium Chloride (Saline Flush) 10 ml FLUSH ASDIRECTED PRN PRN Reason: Keep Vein Open Sodium Chloride (Saline Flush) 2.5 ml FLUSH ASDIRECTED PRN PRN Reason: Keep Vein Open Temazepam (Restoril) 15 mg PO BEDTIME PRN PRN Reason: Sleep Trazodone HCl (Trazodone) 50 mg PO BEDTIME ARETHA Assessment/Plan Comment:: A: 1. Chest pain, ACS rule out 2. epigastric pain P: 1. I suspect that her symptoms are more related to PUD than cardiac. However, will trend troponins, telemetry. Will give GI cocktail and start pantoprazole and see if that helps. Will check for stool H.pylori. In addition, will check lipase. <Glen Newberry - Last Filed: 11/19/18 09:51> H&P History of Present Illness - General Admit Problem/Dx: Admission Diagnosis/Problem Admission Diagnosis/Problem Chest pain I have seen and evaluated the patient independent of senior medical writer, Dr. Harlan MD. I have reviewed and agree with the plan and care as outlined for this patient by him. I have discussed the case with him. Please see orders. Likely esophagitis. Exam - Vital Signs Vital Signs: Last Vital Signs Temp 36.0 C 11/19/18 08:00 Pulse 63 11/19/18 08:00 Resp 18 11/19/18 08:00 BP 125/72 11/19/18 08:00 Pulse Ox 97 11/19/18 08:00 - Patient Data Lab Results Last 24 hrs: Laboratory Results - last 24 hr 11/18/18 11/18/18 11/18/18 Range/Units 17:16 17:16 17:16 WBC 8.54 (4.0-11.0) K/uL RBC 4.50 (4.30-5.90) M/uL Hgb 13.2 (12.0-16.0) g/dL Hct 38.6 (36.0-46.0) % MCV 85.8 (80.0-98.0) fL MCH 29.3 (27.0-32.0) pg MCHC 34.2 (31.0-37.0) g/dL RDW Std Deviation 40.6 (28.0-62.0) fl RDW Coeff of Missy 13 (11.0-15.0) % Plt Count 359 (150-400) K/uL MPV 9.50 (7.40-12.00) fL Neut % (Auto) 62.9 (48.0-80.0) % Lymph % (Auto) 28.9 (16.0-40.0) % [place] % (Auto) 6.6 (0.0-15.0) % Eos % (Auto) 0.9 (0.0-7.0) % Baso % (Auto) 0.7 (0.0-1.5) % Neut # (Auto) 5.4 (1.4-5.7) K/uL Lymph # (Auto) 2.5 H (0.6-2.4) K/uL [place] # (Auto) 0.6 (0.0-0.8) K/uL Eos # (Auto) 0.1 (0.0-0.7) K/uL Baso # (Auto) 0.1 (0.0-0.1) K/uL Nucleated RBC % 0.0 /100WBC Nucleated RBCs # 0 K/uL INR 0.96 Sodium 141 (136-145) mmol/L Potassium 3.9 (3.5-5.1) mmol/L Chloride 106 (98-107) mmol/L Carbon Dioxide 22.1 (21.0-32.0) mmol/L BUN 26 H (7.0-18.0) mg/dL Creatinine 0.9 (0.6-1.0) mg/dL Est Cr Clr Drug Dosing 69.49 mL/min Estimated GFR (MDRD) > 60.0 ml/min Glucose 94 (74-106) mg/dL Calcium 9.7 (8.5-10.1) mg/dL Total Bilirubin 0.2 (0.2-1.0) mg/dL AST 12 L (15-37) IU/L ALT 23 (14-63) IU/L Alkaline Phosphatase 85 (46-116) U/L Troponin I < 0.050 (0.000-0.056) ng/mL Total Protein 6.7 (6.4-8.2) g/dL Albumin 3.7 (3.4-5.0) g/dL Globulin 3.0 (2.6-4.0) g/dL Albumin/Globulin Ratio 1.2 (0.9-1.6) Lipase (73-393) U/L 11/18/18 11/18/18 11/19/18 Range/Units 17:16 22:57 05:14 WBC (4.0-11.0) K/uL RBC (4.30-5.90) M/uL Hgb (12.0-16.0) g/dL Hct (36.0-46.0) % MCV (80.0-98.0) fL MCH (27.0-32.0) pg MCHC (31.0-37.0) g/dL RDW Std Deviation (28.0-62.0) fl RDW Coeff of Missy (11.0-15.0) % Plt Count (150-400) K/uL MPV (7.40-12.00) fL Neut % (Auto) (48.0-80.0) % Lymph % (Auto) (16.0-40.0) % [place] % (Auto) (0.0-15.0) % Eos % (Auto) (0.0-7.0) % Baso % (Auto) (0.0-1.5) % Neut # (Auto) (1.4-5.7) K/uL Lymph # (Auto) (0.6-2.4) K/uL [place] # (Auto) (0.0-0.8) K/uL Eos # (Auto) (0.0-0.7) K/uL Baso # (Auto) (0.0-0.1) K/uL Nucleated RBC % /100WBC Nucleated RBCs # K/uL INR Sodium (136-145) mmol/L Potassium (3.5-5.1) mmol/L Chloride (98-107) mmol/L Carbon Dioxide (21.0-32.0) mmol/L BUN (7.0-18.0) mg/dL Creatinine (0.6-1.0) mg/dL Est Cr Clr Drug Dosing mL/min Estimated GFR (MDRD) ml/min Glucose (74-106) mg/dL Calcium (8.5-10.1) mg/dL Total Bilirubin (0.2-1.0) mg/dL AST (15-37) IU/L ALT (14-63) IU/L Alkaline Phosphatase (46-116) U/L Troponin I < 0.050 < 0.050 (0.000-0.056) ng/mL Total Protein (6.4-8.2) g/dL Albumin (3.4-5.0) g/dL Globulin (2.6-4.0) g/dL Albumin/Globulin Ratio (0.9-1.6) Lipase 124 (73-393) U/L 11/19/18 11/19/18 Range/Units 05:14 05:14 WBC 5.14 (4.0-11.0) K/uL RBC 3.98 L (4.30-5.90) M/uL Hgb 11.6 L (12.0-16.0) g/dL Hct 34.4 L (36.0-46.0) % MCV 86.4 (80.0-98.0) fL MCH 29.1 (27.0-32.0) pg MCHC 33.7 (31.0-37.0) g/dL RDW Std Deviation 41.5 (28.0-62.0) fl RDW Coeff of Missy 13 (11.0-15.0) % Plt Count 283 (150-400) K/uL MPV 9.50 (7.40-12.00) fL Neut % (Auto) 40.1 L (48.0-80.0) % Lymph % (Auto) 48.6 H (16.0-40.0) % [place] % (Auto) 8.9 (0.0-15.0) % Eos % (Auto) 1.6 (0.0-7.0) % Baso % (Auto) 0.8 (0.0-1.5) % Neut # (Auto) 2.1 (1.4-5.7) K/uL Lymph # (Auto) 2.5 H (0.6-2.4) K/uL [place] # (Auto) 0.5 (0.0-0.8) K/uL Eos # (Auto) 0.1 (0.0-0.7) K/uL Baso # (Auto) 0.0 (0.0-0.1) K/uL Nucleated RBC % 0.0 /100WBC Nucleated RBCs # 0 K/uL INR Sodium 143 (136-145) mmol/L Potassium 4.0 (3.5-5.1) mmol/L Chloride 110 H (98-107) mmol/L Carbon Dioxide 21.5 (21.0-32.0) mmol/L BUN 22 H (7.0-18.0) mg/dL Creatinine 0.8 (0.6-1.0) mg/dL Est Cr Clr Drug Dosing 78.18 mL/min Estimated GFR (MDRD) > 60.0 ml/min Glucose 95 (74-106) mg/dL Calcium 8.2 L (8.5-10.1) mg/dL Total Bilirubin 0.3 (0.2-1.0) mg/dL AST 10 L (15-37) IU/L ALT 18 (14-63) IU/L Alkaline Phosphatase 66 (46-116) U/L Troponin I (0.000-0.056) ng/mL Total Protein 5.2 L (6.4-8.2) g/dL Albumin 2.9 L (3.4-5.0) g/dL Globulin 2.3 L (2.6-4.0) g/dL Albumin/Globulin Ratio 1.3 (0.9-1.6) Lipase (73-393) U/L Result Diagrams: 11/19/18 05:14 11/19/18 05:14 Orders Last 24hrs: Active Orders 24 hr Category Date Time Status Patient Status [ADT] Stat ADT 11/18/18 17:45 Active Intake and Output [RC] Q12H Care 11/18/18 17:58 Active Oxygen Therapy [RC] PRN Care 11/18/18 17:58 Active Telemetry Monitoring [Cardiac Monitoring] [RC] Q8H Care 11/18/18 17:58 Active Up ad Maya [RC] ASDIRECTED Care 11/18/18 17:57 Active VTE/DVT Education [RC] PER UNIT ROUTINE Care 11/18/18 17:58 Active Vital Signs [RC] Q4H Care 11/18/18 17:58 Active Regular Diet [DIET] Diet 11/18/18 Dinner Active H PYLORI STOOL ANTIGEN [MREF] Stat Lab 11/18/18 18:02 Ordered Acetaminophen [Tylenol] Med 11/18/18 17:57 Active 650 mg PO Q4H PRN Enoxaparin [Lovenox] Med 11/18/18 18:00 Active 40 mg SUBCUT Q24H Ibuprofen [Motrin] Med 11/18/18 17:57 Active 800 mg PO Q6H PRN Morphine Med 11/18/18 20:42 Active 2 mg IVPUSH Q2H PRN Nitroglycerin [Nitrostat] Med 11/18/18 18:14 Active 0.4 mg SL Q5M PRN Ondansetron [Zofran ODT] Med 11/18/18 17:57 Active 4 mg PO Q4H PRN Ondansetron [Zofran] Med 11/18/18 17:57 Active 4 mg IVPUSH Q4H PRN Pantoprazole [ProTONIX] Med 11/19/18 07:30 Active 40 mg PO ACBREAKFAST Sodium Chloride 0.9% [Saline Flush] Med 11/18/18 17:00 Active 10 ml FLUSH ASDIRECTED PRN Sodium Chloride 0.9% [Saline Flush] Med 11/18/18 17:00 Active 2.5 ml FLUSH ASDIRECTED PRN Temazepam [Restoril] Med 11/18/18 17:57 Active 15 mg PO BEDTIME PRN traZODone Med 11/18/18 21:00 Active 50 mg PO BEDTIME Saline Lock Insert [OM.PC] Stat Oth 11/18/18 17:00 Ordered Resuscitation Status Routine Resus Stat 11/18/18 17:57 Ordered Medication Orders Acetaminophen (Tylenol) 650 mg PO Q4H PRN PRN Reason: Pain (Mild 1-3)/fever Last Admin: 11/19/18 02:45 Dose: 650 mg Enoxaparin Sodium (Lovenox) 40 mg SUBCUT Q24H [facility] Last Admin: 11/18/18 18:21 Dose: 40 mg Ibuprofen (Motrin) 800 mg PO Q6H PRN PRN Reason: Pain (mild 1-3) Morphine Sulfate (Morphine) 2 mg IVPUSH Q2H PRN PRN Reason: Pain (severe 7-10) Stop: 11/19/18 20:45 Last Admin: 11/19/18 05:20 Dose: 2 mg Nitroglycerin (Nitrostat) 0.4 mg SL Q5M PRN PRN Reason: Chest Pain Ondansetron HCl (Zofran Odt) 4 mg PO Q4H PRN PRN Reason: nausea, able to take PO Ondansetron HCl (Zofran) 4 mg IVPUSH Q4H PRN PRN Reason: Nausea Pantoprazole Sodium (Protonix) 40 mg PO ACBREAKFAST [facility] Last Admin: 11/19/18 06:45 Dose: 40 mg Sodium Chloride (Saline Flush) 10 ml FLUSH ASDIRECTED PRN PRN Reason: Keep Vein Open Sodium Chloride (Saline Flush) 2.5 ml FLUSH ASDIRECTED PRN PRN Reason: Keep Vein Open Temazepam (Restoril) 15 mg PO BEDTIME PRN PRN Reason: Sleep Trazodone HCl (Trazodone) 50 mg PO BEDTIME [facility] Last Admin: 11/18/18 21:02 Dose: 50 mg
[2018-11-18] MEDS ORDERED: Nitroglycerin 0.4 MG Tab.SL SL PRN (18:14)
--- NOTE | 2018-11-18 18:15 | CR ---
Indication: Chest pain. Technique: Single AP portable view of the chest was obtained. Comparison: July 11, 2017 Findings: The heart is normal in size. Left basilar atelectasis identified. No infiltrate, pleural effusion, or pneumothorax is identified. Impression: Left basilar atelectasis. Dictated by Rosa Brooks MD @ Nov 18 2018 6:14PM Signed by Dr. Rosa Brooks @ Nov 18 2018 6:15PM
[2018-11-18] MEDS ORDERED: ALUM HYDROX PO ONE ×3 (19:50)
[2018-11-18] MEDS ORDERED: MAG HYDROX PO ONE ×3 (19:50)
[2018-11-18] MEDS ORDERED: SIMETH PO ONE ×3 (19:50)
[2018-11-18] MEDS ORDERED: METOCLOPRAMIDE PO ONE ×3 (19:50)
[2018-11-18] MEDS ORDERED: LIDOCAINE PO ONE ×3 (19:50)
[2018-11-18] MEDS ORDERED: Morphine 2 MG/ML Syringe IVPUSH PRN (20:42)
[2018-11-18] MEDS ORDERED: traZODone 50 MG Tab PO SCH (21:00)
[2018-11-19 05:40] LABS: CHLORIDE,CL 110 mmol/L (98-107); SODIUM,NA 143 mmol/L (136-145)
[2018-11-19] MEDS ORDERED: Pantoprazole 40 MG Tab.CR PO SCH (07:30)
[2018-11-19 08:35] VITALS: BP 125/72
[2018-11-19] MEDS ORDERED: Sucralfate Suspension 1 GM/10 ML Cup PO ONE (09:19)
--- NOTE | 2018-11-19 10:20 | PCM.DCSUM1 ---
<Haresh Shearer - Last Filed: 11/19/18 10:55> Discharge Summary - Hospital Course Free Text/Narrative:: 53 y/o female presenting with epigastric pain radiating to left chest area. Admitted for ACS rule out. Serial troponins were negative. EKG unremarkable. Her epigastric pain was attributed to peptic ulcer disease. She stated she had been taking omeprazole on and off but no on a daily basis. Her epigastric pain improved with carafate administration. She was discharged home on carafate Q6H and pantoprazole daily. She will be following up with Dr. Tran for possible upper endoscopy. In addition, she was advised to follow-up with her PCP. - Discharge Data Discharge Date: 11/19/18 Discharge Disposition: Home, Self-Care 01 Condition: Stable - Patient Instructions Diet: Regular Diet as Tolerated Activity: As Tolerated Notify Provider of: Fever, Increased Pain, Swelling and Redness, Nausea and/or Vomiting - Discharge Plan *PRESCRIPTION DRUG MONITORING PROGRAM REVIEWED*: Not Applicable *COPY OF PRESCRIPTION DRUG MONITORING REPORT IN PATIENT SAUL: Not Applicable Prescriptions/Med Rec: Pantoprazole Sodium 40 mg PO DAILY 30 Days #30 tablet. Sucralfate [Carafate] 1 gm PO Q6H 14 Days #56 cup Home Medications: Home Meds Methocarbamol 750 mg PO TID PRN 02/07/18 [History] Rizatriptan Benzoate [Rizatriptan] 10 mg PO DAILY PRN 02/07/18 [History] Ibuprofen 1 - 2 tab PO ASDIRECTED PRN 07/23/18 [History] traZODone HCl [Trazodone HCl] 50 mg PO BEDTIME 07/23/18 [History] Pantoprazole Sodium 40 mg PO DAILY 30 Days #30 tablet. 11/19/18 [Rx] Sucralfate [Carafate] 1 gm PO Q6H 14 Days #56 cup 11/19/18 [Rx] Forms: ED Department Discharge Referrals: Joey Tran MD [Physician] - 11/21/18 10:30 am (Followup EGD (upper GI) , November 21, 2018 at 1030 AM Appointment in Building on the 3rd Floor.) Kenny Mishra MD [Ordering Only Provider] - - Discharge Summary/Plan Comment DC Time >30 min.: No - Patient Data Vitals - Most Recent: Last Vital Signs Temp 36.0 C 11/19/18 08:00 Pulse 63 11/19/18 08:00 Resp 18 11/19/18 08:00 BP 125/72 11/19/18 08:00 Pulse Ox 97 11/19/18 08:00 Weight - Most Recent: 74.389 kg I&O - Last 24 hours: Intake & Output 11/18/18 11/19/18 11/19/18 22:59 06:59 14:59 Intake Total 1480 Output Total 450 Balance 1030 Lab Results - Last 24 hrs: Laboratory Results - last 24 hr 11/18/18 11/18/18 11/18/18 Range/Units 17:16 17:16 17:16 WBC 8.54 (4.0-11.0) K/uL RBC 4.50 (4.30-5.90) M/uL Hgb 13.2 (12.0-16.0) g/dL Hct 38.6 (36.0-46.0) % MCV 85.8 (80.0-98.0) fL MCH 29.3 (27.0-32.0) pg MCHC 34.2 (31.0-37.0) g/dL RDW Std Deviation 40.6 (28.0-62.0) fl RDW Coeff of Missy 13 (11.0-15.0) % Plt Count 359 (150-400) K/uL MPV 9.50 (7.40-12.00) fL Neut % (Auto) 62.9 (48.0-80.0) % Lymph % (Auto) 28.9 (16.0-40.0) % [place] % (Auto) 6.6 (0.0-15.0) % Eos % (Auto) 0.9 (0.0-7.0) % Baso % (Auto) 0.7 (0.0-1.5) % Neut # (Auto) 5.4 (1.4-5.7) K/uL Lymph # (Auto) 2.5 H (0.6-2.4) K/uL [place] # (Auto) 0.6 (0.0-0.8) K/uL Eos # (Auto) 0.1 (0.0-0.7) K/uL Baso # (Auto) 0.1 (0.0-0.1) K/uL Nucleated RBC % 0.0 /100WBC Nucleated RBCs # 0 K/uL INR 0.96 Sodium 141 (136-145) mmol/L Potassium 3.9 (3.5-5.1) mmol/L Chloride 106 (98-107) mmol/L Carbon Dioxide 22.1 (21.0-32.0) mmol/L BUN 26 H (7.0-18.0) mg/dL Creatinine 0.9 (0.6-1.0) mg/dL Est Cr Clr Drug Dosing 69.49 mL/min Estimated GFR (MDRD) > 60.0 ml/min Glucose 94 (74-106) mg/dL Calcium 9.7 (8.5-10.1) mg/dL Total Bilirubin 0.2 (0.2-1.0) mg/dL AST 12 L (15-37) IU/L ALT 23 (14-63) IU/L Alkaline Phosphatase 85 (46-116) U/L Troponin I < 0.050 (0.000-0.056) ng/mL Total Protein 6.7 (6.4-8.2) g/dL Albumin 3.7 (3.4-5.0) g/dL Globulin 3.0 (2.6-4.0) g/dL Albumin/Globulin Ratio 1.2 (0.9-1.6) Lipase (73-393) U/L 11/18/18 11/18/18 11/19/18 Range/Units 17:16 22:57 05:14 WBC (4.0-11.0) K/uL RBC (4.30-5.90) M/uL Hgb (12.0-16.0) g/dL Hct (36.0-46.0) % MCV (80.0-98.0) fL MCH (27.0-32.0) pg MCHC (31.0-37.0) g/dL RDW Std Deviation (28.0-62.0) fl RDW Coeff of Missy (11.0-15.0) % Plt Count (150-400) K/uL MPV (7.40-12.00) fL Neut % (Auto) (48.0-80.0) % Lymph % (Auto) (16.0-40.0) % [place] % (Auto) (0.0-15.0) % Eos % (Auto) (0.0-7.0) % Baso % (Auto) (0.0-1.5) % Neut # (Auto) (1.4-5.7) K/uL Lymph # (Auto) (0.6-2.4) K/uL [place] # (Auto) (0.0-0.8) K/uL Eos # (Auto) (0.0-0.7) K/uL Baso # (Auto) (0.0-0.1) K/uL Nucleated RBC % /100WBC Nucleated RBCs # K/uL INR Sodium (136-145) mmol/L Potassium (3.5-5.1) mmol/L Chloride (98-107) mmol/L Carbon Dioxide (21.0-32.0) mmol/L BUN (7.0-18.0) mg/dL Creatinine (0.6-1.0) mg/dL Est Cr Clr Drug Dosing mL/min Estimated GFR (MDRD) ml/min Glucose (74-106) mg/dL Calcium (8.5-10.1) mg/dL Total Bilirubin (0.2-1.0) mg/dL AST (15-37) IU/L ALT (14-63) IU/L Alkaline Phosphatase (46-116) U/L Troponin I < 0.050 < 0.050 (0.000-0.056) ng/mL Total Protein (6.4-8.2) g/dL Albumin (3.4-5.0) g/dL Globulin (2.6-4.0) g/dL Albumin/Globulin Ratio (0.9-1.6) Lipase 124 (73-393) U/L 11/19/18 11/19/18 Range/Units 05:14 05:14 WBC 5.14 (4.0-11.0) K/uL RBC 3.98 L (4.30-5.90) M/uL Hgb 11.6 L (12.0-16.0) g/dL Hct 34.4 L (36.0-46.0) % MCV 86.4 (80.0-98.0) fL MCH 29.1 (27.0-32.0) pg MCHC 33.7 (31.0-37.0) g/dL RDW Std Deviation 41.5 (28.0-62.0) fl RDW Coeff of Missy 13 (11.0-15.0) % Plt Count 283 (150-400) K/uL MPV 9.50 (7.40-12.00) fL Neut % (Auto) 40.1 L (48.0-80.0) % Lymph % (Auto) 48.6 H (16.0-40.0) % [place] % (Auto) 8.9 (0.0-15.0) % Eos % (Auto) 1.6 (0.0-7.0) % Baso % (Auto) 0.8 (0.0-1.5) % Neut # (Auto) 2.1 (1.4-5.7) K/uL Lymph # (Auto) 2.5 H (0.6-2.4) K/uL [place] # (Auto) 0.5 (0.0-0.8) K/uL Eos # (Auto) 0.1 (0.0-0.7) K/uL Baso # (Auto) 0.0 (0.0-0.1) K/uL Nucleated RBC % 0.0 /100WBC Nucleated RBCs # 0 K/uL INR Sodium 143 (136-145) mmol/L Potassium 4.0 (3.5-5.1) mmol/L Chloride 110 H (98-107) mmol/L Carbon Dioxide 21.5 (21.0-32.0) mmol/L BUN 22 H (7.0-18.0) mg/dL Creatinine 0.8 (0.6-1.0) mg/dL Est Cr Clr Drug Dosing 78.18 mL/min Estimated GFR (MDRD) > 60.0 ml/min Glucose 95 (74-106) mg/dL Calcium 8.2 L (8.5-10.1) mg/dL Total Bilirubin 0.3 (0.2-1.0) mg/dL AST 10 L (15-37) IU/L ALT 18 (14-63) IU/L Alkaline Phosphatase 66 (46-116) U/L Troponin I (0.000-0.056) ng/mL Total Protein 5.2 L (6.4-8.2) g/dL Albumin 2.9 L (3.4-5.0) g/dL Globulin 2.3 L (2.6-4.0) g/dL Albumin/Globulin Ratio 1.3 (0.9-1.6) Lipase (73-393) U/L Med Orders - Current: Current Medications Acetaminophen (Tylenol) 650 mg PO Q4H PRN PRN Reason: Pain (Mild 1-3)/fever Last Admin: 11/19/18 02:45 Dose: 650 mg Enoxaparin Sodium (Lovenox) 40 mg SUBCUT Q24H COUNTS INCLUDE 234 BEDS AT THE [facility] Last Admin: 11/18/18 18:21 Dose: 40 mg Ibuprofen (Motrin) 800 mg PO Q6H PRN PRN Reason: Pain (mild 1-3) Morphine Sulfate (Morphine) 2 mg IVPUSH Q2H PRN PRN Reason: Pain (severe 7-10) Stop: 11/19/18 20:45 Last Admin: 11/19/18 05:20 Dose: 2 mg Nitroglycerin (Nitrostat) 0.4 mg SL Q5M PRN PRN Reason: Chest Pain Ondansetron HCl (Zofran Odt) 4 mg PO Q4H PRN PRN Reason: nausea, able to take PO Ondansetron HCl (Zofran) 4 mg IVPUSH Q4H PRN PRN Reason: Nausea Pantoprazole Sodium (Protonix) 40 mg PO ACBREAKFAST COUNTS INCLUDE 234 BEDS AT THE [facility] Last Admin: 11/19/18 06:45 Dose: 40 mg Sodium Chloride (Saline Flush) 10 ml FLUSH ASDIRECTED PRN PRN Reason: Keep Vein Open Sodium Chloride (Saline Flush) 2.5 ml FLUSH ASDIRECTED PRN PRN Reason: Keep Vein Open Temazepam (Restoril) 15 mg PO BEDTIME PRN PRN Reason: Sleep Trazodone HCl (Trazodone) 50 mg PO BEDTIME COUNTS INCLUDE 234 BEDS AT THE [facility] Last Admin: 11/18/18 21:02 Dose: 50 mg Discontinued Medications Aspirin (Aspirin) 324 mg PO ONETIME ONE Stop: 11/18/18 17:31 Last Admin: 11/18/18 17:34 Dose: 324 mg Al Hydroxide/Mg Hydroxide 15 ml/ Metoclopramide HCl 5 mg/Lidocaine HCl 5 ml 0 ml PO ONETIME ONE Stop: 11/18/18 18:06 Last Admin: 11/18/18 18:22 Dose: 1 each Al Hydroxide/Mg Hydroxide 15 ml/ Lidocaine HCl 5 ml/Metoclopramide HCl 5 mg 0 ml PO ONETIME ONE Stop: 11/18/18 19:51 Last Admin: 11/18/18 20:11 Dose: 20 each Sodium Chloride (Normal Saline) 1,000 mls @ 100 mls/hr IV NOW STA Stop: 11/19/18 04:04 Last Admin: 11/18/18 18:16 Dose: 100 mls/hr Lorazepam (Ativan) 1 mg IVPUSH ONETIME ONE Stop: 11/18/18 17:02 Last Admin: 11/18/18 17:21 Dose: 1 mg Morphine Sulfate (Morphine) 2 mg IVPUSH ONETIME ONE Stop: 11/18/18 17:02 Last Admin: 11/18/18 17:19 Dose: 2 mg Morphine Sulfate (Morphine) 2 mg IVPUSH Q2H PRN PRN Reason: Pain (severe 7-10) Stop: 11/19/18 17:59 Last Admin: 11/18/18 20:05 Dose: 2 mg Nitroglycerin (Nitro-Bid 2%) 1 gm TOP ONETIME ONE Stop: 11/18/18 17:01 Last Admin: 11/18/18 17:09 Dose: 1 gm Ondansetron HCl (Zofran) 4 mg IVPUSH ONETIME ONE Stop: 11/18/18 17:03 Last Admin: 11/18/18 17:16 Dose: 4 mg Sucralfate (Carafate) 1 gm PO ONETIME ONE Stop: 11/19/18 09:20 Last Admin: 11/19/18 09:53 Dose: 1 gm <Glne Newberry - Last Filed: 11/19/18 12:29> Discharge Summary - Hospital Course Free Text/Narrative:: I have examined the patient independently of medical director/head team physician, Dr. Jaylin MD. I have discussed the case with him. I have reviewed and agree with the examination and plan as outlined by him. Please see orders. - Patient Data Vitals - Most Recent: Last Vital Signs Temp 36.0 C 11/19/18 08:00 Pulse 63 11/19/18 08:00 Resp 18 11/19/18 08:00 BP 125/72 11/19/18 08:00 Pulse Ox 97 11/19/18 08:00 I&O - Last 24 hours: Intake & Output 11/18/18 11/19/18 11/19/18 22:59 06:59 14:59 Intake Total 1480 Output Total 450 Balance 1030 Lab Results - Last 24 hrs: Laboratory Results - last 24 hr 11/18/18 11/18/18 11/18/18 Range/Units 17:16 17:16 17:16 WBC 8.54 (4.0-11.0) K/uL RBC 4.50 (4.30-5.90) M/uL Hgb 13.2 (12.0-16.0) g/dL Hct 38.6 (36.0-46.0) % MCV 85.8 (80.0-98.0) fL MCH 29.3 (27.0-32.0) pg MCHC 34.2 (31.0-37.0) g/dL RDW Std Deviation 40.6 (28.0-62.0) fl RDW Coeff of Missy 13 (11.0-15.0) % Plt Count 359 (150-400) K/uL MPV 9.50 (7.40-12.00) fL Neut % (Auto) 62.9 (48.0-80.0) % Lymph % (Auto) 28.9 (16.0-40.0) % [place] % (Auto) 6.6 (0.0-15.0) % Eos % (Auto) 0.9 (0.0-7.0) % Baso % (Auto) 0.7 (0.0-1.5) % Neut # (Auto) 5.4 (1.4-5.7) K/uL Lymph # (Auto) 2.5 H (0.6-2.4) K/uL [place] # (Auto) 0.6 (0.0-0.8) K/uL Eos # (Auto) 0.1 (0.0-0.7) K/uL Baso # (Auto) 0.1 (0.0-0.1) K/uL Nucleated RBC % 0.0 /100WBC Nucleated RBCs # 0 K/uL INR 0.96 Sodium 141 (136-145) mmol/L Potassium 3.9 (3.5-5.1) mmol/L Chloride 106 (98-107) mmol/L Carbon Dioxide 22.1 (21.0-32.0) mmol/L BUN 26 H (7.0-18.0) mg/dL Creatinine 0.9 (0.6-1.0) mg/dL Est Cr Clr Drug Dosing 69.49 mL/min Estimated GFR (MDRD) > 60.0 ml/min Glucose 94 (74-106) mg/dL Calcium 9.7 (8.5-10.1) mg/dL Total Bilirubin 0.2 (0.2-1.0) mg/dL AST 12 L (15-37) IU/L ALT 23 (14-63) IU/L Alkaline Phosphatase 85 (46-116) U/L Troponin I < 0.050 (0.000-0.056) ng/mL Total Protein 6.7 (6.4-8.2) g/dL Albumin 3.7 (3.4-5.0) g/dL Globulin 3.0 (2.6-4.0) g/dL Albumin/Globulin Ratio 1.2 (0.9-1.6) Lipase (73-393) U/L 11/18/18 11/18/18 11/19/18 Range/Units 17:16 22:57 05:14 WBC (4.0-11.0) K/uL RBC (4.30-5.90) M/uL Hgb (12.0-16.0) g/dL Hct (36.0-46.0) % MCV (80.0-98.0) fL MCH (27.0-32.0) pg MCHC (31.0-37.0) g/dL RDW Std Deviation (28.0-62.0) fl RDW Coeff of Missy (11.0-15.0) % Plt Count (150-400) K/uL MPV (7.40-12.00) fL Neut % (Auto) (48.0-80.0) % Lymph % (Auto) (16.0-40.0) % [place] % (Auto) (0.0-15.0) % Eos % (Auto) (0.0-7.0) % Baso % (Auto) (0.0-1.5) % Neut # (Auto) (1.4-5.7) K/uL Lymph # (Auto) (0.6-2.4) K/uL [place] # (Auto) (0.0-0.8) K/uL Eos # (Auto) (0.0-0.7) K/uL Baso # (Auto) (0.0-0.1) K/uL Nucleated RBC % /100WBC Nucleated RBCs # K/uL INR Sodium (136-145) mmol/L Potassium (3.5-5.1) mmol/L Chloride (98-107) mmol/L Carbon Dioxide (21.0-32.0) mmol/L BUN (7.0-18.0) mg/dL Creatinine (0.6-1.0) mg/dL Est Cr Clr Drug Dosing mL/min Estimated GFR (MDRD) ml/min Glucose (74-106) mg/dL Calcium (8.5-10.1) mg/dL Total Bilirubin (0.2-1.0) mg/dL AST (15-37) IU/L ALT (14-63) IU/L Alkaline Phosphatase (46-116) U/L Troponin I < 0.050 < 0.050 (0.000-0.056) ng/mL Total Protein (6.4-8.2) g/dL Albumin (3.4-5.0) g/dL Globulin (2.6-4.0) g/dL Albumin/Globulin Ratio (0.9-1.6) Lipase 124 (73-393) U/L 11/19/18 11/19/18 Range/Units 05:14 05:14 WBC 5.14 (4.0-11.0) K/uL RBC 3.98 L (4.30-5.90) M/uL Hgb 11.6 L (12.0-16.0) g/dL Hct 34.4 L (36.0-46.0) % MCV 86.4 (80.0-98.0) fL MCH 29.1 (27.0-32.0) pg MCHC 33.7 (31.0-37.0) g/dL RDW Std Deviation 41.5 (28.0-62.0) fl RDW Coeff of Missy 13 (11.0-15.0) % Plt Count 283 (150-400) K/uL MPV 9.50 (7.40-12.00) fL Neut % (Auto) 40.1 L (48.0-80.0) % Lymph % (Auto) 48.6 H (16.0-40.0) % [place] % (Auto) 8.9 (0.0-15.0) % Eos % (Auto) 1.6 (0.0-7.0) % Baso % (Auto) 0.8 (0.0-1.5) % Neut # (Auto) 2.1 (1.4-5.7) K/uL Lymph # (Auto) 2.5 H (0.6-2.4) K/uL [place] # (Auto) 0.5 (0.0-0.8) K/uL Eos # (Auto) 0.1 (0.0-0.7) K/uL Baso # (Auto) 0.0 (0.0-0.1) K/uL Nucleated RBC % 0.0 /100WBC Nucleated RBCs # 0 K/uL INR Sodium 143 (136-145) mmol/L Potassium 4.0 (3.5-5.1) mmol/L Chloride 110 H (98-107) mmol/L Carbon Dioxide 21.5 (21.0-32.0) mmol/L BUN 22 H (7.0-18.0) mg/dL Creatinine 0.8 (0.6-1.0) mg/dL Est Cr Clr Drug Dosing 78.18 mL/min Estimated GFR (MDRD) > 60.0 ml/min Glucose 95 (74-106) mg/dL Calcium 8.2 L (8.5-10.1) mg/dL Total Bilirubin 0.3 (0.2-1.0) mg/dL AST 10 L (15-37) IU/L ALT 18 (14-63) IU/L Alkaline Phosphatase 66 (46-116) U/L Troponin I (0.000-0.056) ng/mL Total Protein 5.2 L (6.4-8.2) g/dL Albumin 2.9 L (3.4-5.0) g/dL Globulin 2.3 L (2.6-4.0) g/dL Albumin/Globulin Ratio 1.3 (0.9-1.6) Lipase (73-393) U/L Med Orders - Current: Current Medications Discontinued Medications Acetaminophen (Tylenol) 650 mg PO Q4H PRN PRN Reason: Pain (Mild 1-3)/fever Last Admin: 11/19/18 02:45 Dose: 650 mg Aspirin (Aspirin) 324 mg PO ONETIME ONE Stop: 11/18/18 17:31 Last Admin: 11/18/18 17:34 Dose: 324 mg Al Hydroxide/Mg Hydroxide 15 ml/ Metoclopramide HCl 5 mg/Lidocaine HCl 5 ml 0 ml PO ONETIME ONE Stop: 11/18/18 18:06 Last Admin: 11/18/18 18:22 Dose: 1 each Al Hydroxide/Mg Hydroxide 15 ml/ Lidocaine HCl 5 ml/Metoclopramide HCl 5 mg 0 ml PO ONETIME ONE Stop: 11/18/18 19:51 Last Admin: 11/18/18 20:11 Dose: 20 each Enoxaparin Sodium (Lovenox) 40 mg SUBCUT Q24H ARETHA Last Admin: 11/18/18 18:21 Dose: 40 mg Sodium Chloride (Normal Saline) 1,000 mls @ 100 mls/hr IV NOW STA Stop: 11/19/18 04:04 Last Admin: 11/18/18 18:16 Dose: 100 mls/hr Ibuprofen (Motrin) 800 mg PO Q6H PRN PRN Reason: Pain (mild 1-3) Lorazepam (Ativan) 1 mg IVPUSH ONETIME ONE Stop: 11/18/18 17:02 Last Admin: 11/18/18 17:21 Dose: 1 mg Morphine Sulfate (Morphine) 2 mg IVPUSH ONETIME ONE Stop: 11/18/18 17:02 Last Admin: 11/18/18 17:19 Dose: 2 mg Morphine Sulfate (Morphine) 2 mg IVPUSH Q2H PRN PRN Reason: Pain (severe 7-10) Stop: 11/19/18 17:59 Last Admin: 11/18/18 20:05 Dose: 2 mg Morphine Sulfate (Morphine) 2 mg IVPUSH Q2H PRN PRN Reason: Pain (severe 7-10) Stop: 11/19/18 20:45 Last Admin: 11/19/18 05:20 Dose: 2 mg Nitroglycerin (Nitro-Bid 2%) 1 gm TOP ONETIME ONE Stop: 11/18/18 17:01 Last Admin: 11/18/18 17:09 Dose: 1 gm Nitroglycerin (Nitrostat) 0.4 mg SL Q5M PRN PRN Reason: Chest Pain Ondansetron HCl (Zofran) 4 mg IVPUSH ONETIME ONE Stop: 11/18/18 17:03 Last Admin: 11/18/18 17:16 Dose: 4 mg Ondansetron HCl (Zofran Odt) 4 mg PO Q4H PRN PRN Reason: nausea, able to take PO Ondansetron HCl (Zofran) 4 mg IVPUSH Q4H PRN PRN Reason: Nausea Pantoprazole Sodium (Protonix) 40 mg PO ACBREAKFAST COUNTS INCLUDE 234 BEDS AT THE [facility] Last Admin: 11/19/18 06:45 Dose: 40 mg Sodium Chloride (Saline Flush) 10 ml FLUSH ASDIRECTED PRN PRN Reason: Keep Vein Open Sodium Chloride (Saline Flush) 2.5 ml FLUSH ASDIRECTED PRN PRN Reason: Keep Vein Open Sucralfate (Carafate) 1 gm PO ONETIME ONE Stop: 11/19/18 09:20 Last Admin: 11/19/18 09:53 Dose: 1 gm Temazepam (Restoril) 15 mg PO BEDTIME PRN PRN Reason: Sleep Trazodone HCl (Trazodone) 50 mg PO BEDTIME COUNTS INCLUDE 234 BEDS AT THE [facility] Last Admin: 11/18/18 21:02 Dose: 50 mg
== END 2018-11-19 11:47 | disposition home or self-care (01) ==
LOC: MW.ED 16:51 → MW.ICU 18:19
PROVIDERS: ADMIT Internal Medicine; ATTEND Internal Medicine
DX: K27.9 Peptic ulcer, site unspecified, unspecified as acute or chronic, without hemorrhage or perforation (principal); F41.9 Anxiety disorder, unspecified; F32.9 Major depressive disorder, single episode, unspecified; Z91.048 Other nonmedicinal substance allergy status; Z87.891 Personal history of nicotine dependence; Z79.899 Other long term (current) drug therapy
CPT/HCPCS: 36415; 71045; 80053; 83690; 84484; 85025; 85610; 96361; 96372; 96374; 96375; 99285; A9270; J1650; J2060; J2270; J2405; J7040; 96376; 99284; G0378

== ENCOUNTER 2018-11-25 10:01 | Day surgery (SDC) | payer BC ==
[~2018-11-25 10:01] MED LIST changes: +Glycopyrrolate 0.2 MG/ML SDV ONE; +Lidocaine 2% 5 ML SDV ONE; +Midazolam 1 MG/ML 2 ML SDV ONE; +Propofol 200 MG/20 ML SDV ONE
--- NOTE | 2018-11-25 10:28 | PCM.PREANE ---
Preanesthetic Assessment - Anesthesia/Transfusion/Family Hx Anesthesia History: Prior Anesthesia Without Reaction Family History of Anesthesia Reaction: No Transfusion History: No Prior Transfusion(s) Intubation History: Unknown - Review of Systems General: No Symptoms Pulmonary: No Symptoms Cardiovascular: No Symptoms Gastrointestinal: Other (cont. epigastric pain) Neurological: No Symptoms Other: Reports: None - Physical Assessment Vital Signs: Last Vital Signs Temp 36.6 C 11/25/18 10:14 Pulse 68 11/25/18 10:14 Resp 16 11/25/18 10:14 BP 117/80 11/25/18 10:14 Pulse Ox 98 11/25/18 10:14 Height: 5 ft 7 in Weight: 73.936 kg ASA Class: 2 Airway Class: Mallampati = 2 Dentition: Reports: Normal Dentition, Partial (upper ( 4 teeth ),removed) Thyro-Mental Finger Breadths: 2 Mouth Opening Finger Breadths: 2 ROM/Head Extension: Full Lungs: Clear to Auscultation, Normal Respiratory Effort Cardiovascular: Regular Rate, Regular Rhythm - Allergies Allergies/Adverse Reactions: Allergies Allergy/AdvReac Type Severity Reaction Status Date / Time adhesive tape Allergy Rash Verified 11/21/18 16:30 - Blood Blood Available: No - Anesthesia Plan Pre-Op Medication Ordered: None - Acknowledgements Anesthesia Type Planned: MAC Pt an Appropriate Candidate for the Planned Anesthesia: Yes Alternatives and Risks of Anesthesia Discussed w Pt/Guardian: Yes Pt/Guardian Understands and Agrees with Anesthesia Plan: Yes PreAnesthesia Questionnaire HEENT History: Reports: Other (See Below) Other HEENT History: wears glasses, has upper partial Cardiovascular History: Reports: Other (See Below) Other Cardiovascular History: hypertensive when in pain Respiratory History: Reports: Pneumonia, Recurrent Gastrointestinal History: Reports: GERD, Other (See Below) Other Gastrointestinal History: dysphagia 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 History: Reports: Renal Calculus Other 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 History: passed kidney stones in the past CLERICAL ORDER FILLER History: Reports: Musculoskeletal History: Reports: Back Pain, Chronic, Osteoarthritis Neurological History: Reports: Migraines Other Neuro History: degenerative disc disease Psychiatric History: Reports: Anxiety, Depression Endocrine/Metabolic History: Reports: None Hematologic History: Reports: None Immunologic History: Reports: None Oncologic (Cancer) History: Reports: None Dermatologic History: Reports: None - Infectious Disease History Infectious Disease History: Reports: Chicken Pox - Past Surgical History Head Surgeries/Procedures: Reports: None HEENT Surgical History: Reports: None Cardiovascular Surgical History: Reports: None Respiratory Surgical History: Reports: None GI Surgical History: Reports: Appendectomy, Cholecystectomy, Colonoscopy, EGD ( last one in july), Hernia, Inguinal Female Surgical History: Reports: Hysterectomy, Salpingo-Oophorectomy, Other (See Below) Other Female Surgeries/Procedures: gynecologic laparoscopies Endocrine Surgical History: Reports: None Neurological Surgical History: Reports: None Musculoskeletal Surgical History: Reports: Arthroscopic Knee Oncologic Surgical History: Reports: None Dermatological Surgical History: Reports: None - SUBSTANCE USE Smoking Status *Q: Former Smoker Tobacco Use Within Last Twelve Months: No Recreational Drug Use History: Yes - HOME MEDS Home Medications: Home Meds Rizatriptan Benzoate [Rizatriptan] 10 mg PO DAILY PRN 02/07/18 [History] traZODone HCl [Trazodone HCl] 50 mg PO BEDTIME 07/23/18 [History] Sucralfate [Carafate] 1 gm PO Q6H 14 Days #56 cup 11/19/18 [Rx] - CURRENT (IN HOUSE) MEDS Current Meds: Current Medications Lactated Ringer's (Ringers, Lactated) 1,000 mls @ 125 mls/hr IV [facility] Last Admin: 11/25/18 10:19 Dose: 125 mls/hr Discontinued Medications Glycopyrrolate (Robinul) Confirm Administered Dose 0.2 mg .ROUTE .STK-MED ONE Stop: 11/25/18 07:33 Lidocaine (Xylocaine-Mpf 2%) Confirm Administered Dose 5 ml .ROUTE .STK-MED ONE Stop: 11/25/18 09:34 Midazolam HCl (Versed 1 Mg/Ml) Confirm Administered Dose 2 mg .ROUTE .STK-MED ONE Stop: 11/25/18 07:39 Propofol (Diprivan 20 Ml) Confirm Administered Dose 200 mg .ROUTE .STK-MED ONE Stop: 11/25/18 07:39
[2018-11-25] MEDS ORDERED: Atropine 0.1 MG/ML 10 ML Syringe IVPUSH PRN ×2 (11:06)
[2018-11-25] MEDS ORDERED: Albuterol 0.083% 2.5 MG/3 ML Neb Soln NEB PRN (11:06)
[2018-11-25] MEDS ORDERED: 50% Dextrose in Water 50 ML Syringe IVPUSH PRN (11:06)
[2018-11-25] MEDS ORDERED: EPINEPHrine 1:10,000 1 MG/10 ML Syringe IVPUSH PRN (11:06)
[2018-11-25] MEDS ORDERED: Naloxone 0.4 MG/ML Syringe IVPUSH PRN (11:06)
--- NOTE | 2018-11-25 11:08 | PCM.OPNOTE ---
- General Post-Op/Procedure Note Date of Surgery/Procedure: 11/25/18 Operative Procedure(s): Esophagogastroduodenoscopy with gastric and esophageal biopsies Pre Op Diagnosis: Abdominal bloating bloating with persistent upper abdominal pain. History of chronic gastritis and chronic reflux esophagitis. Anesthesia Technique: MAC (ASA II) Primary Surgeon: Joey Tran Condition: Good Free Text/Narrative:: DICTATION [id number] CPT CODE [id number]
[2018-11-25] MEDS: fentaNYL 100 MCG/2 ML SDV IVPUSH PRN ×2 (11:10→11:19)
[2018-11-25] MEDS ORDERED: Lactated Ringers 1,000 ML IV SCH (11:15)
[2018-11-25] MEDS ORDERED: Aluminum Hydroxide/Magnesium Hydroxide/Simethicone Susp 30 ML Cup PO PRN (11:17)
--- NOTE | 2018-11-25 12:02 | PCM.POSTAN ---
POST ANESTHESIA ASSESSMENT - MENTAL STATUS Mental Status: Alert, Oriented - VITAL SIGNS Vital Signs: Last Vital Signs Temp 36.6 C 11/25/18 10:14 Pulse 71 11/25/18 11:35 Resp 14 11/25/18 11:35 BP 127/83 11/25/18 11:35 Pulse Ox 95 11/25/18 11:35 - RESPIRATORY Respiratory Status: Respiratory Rate WNL, Airway Patent, O2 Saturation Stable - CARDIOVASCULAR CV Status: Pulse Rate WNL, Blood Pressure Stable - GASTROINTESTINAL GI Status: No Symptoms - PAIN Pain Score: 0 - POST OP HYDRATION Hydration Status: Adequate & Stable - OBSERVATIONS Free Text/Narrative:: no anesthesia problems
--- NOTE | 2018-11-25 12:03 | PCM48HPAN ---
Post Anesthesia Note - EVALUATION WITHIN 48HRS OF ANESTHETIC Vital Signs in Normal Range: Yes Patient Participated in Evaluation: Yes Respiratory Function Stable: Yes Airway Patent: Yes Cardiovascular Function Stable: Yes Hydration Status Stable: Yes Pain Control Satisfactory: Yes Nausea and Vomiting Control Satisfactory: Yes Mental Status Recovered: Yes Vital Signs: Last Vital Signs Temp 36.6 C 11/25/18 10:14 Pulse 71 11/25/18 11:35 Resp 14 11/25/18 11:35 BP 127/83 11/25/18 11:35 Pulse Ox 95 11/25/18 11:35 - COMMENTS/OBSERVATIONS Free Text/Narrative:: no anesthesia problems
[2018-11-25 12:06] VITALS: BP 128/86
--- NOTE | 2018-11-25 16:51 | OR ---
SURGEON: Joey Tran M.D. DATE OF PROCEDURE: 11/25/2018 OPERATION PERFORMED: Esophagogastroduodenoscopy with biopsy. ANESTHESIA: MAC. ASA CLASSIFICATION: II. PREOPERATIVE DIAGNOSIS: Persistent epigastric pain with bloating. POSTOPERATIVE DIAGNOSIS: Acute gastritis and esophagitis. DESCRIPTION OF PROCEDURE: The patient was taken to the endoscopy room and positioned on the endoscopy table in the supine position. Time-out was called for appropriate identification of the patient and procedure. Monitored anesthesia care was provided. The bite block was placed between the patient's teeth. The gastroscope was inserted into the bite block and advanced without difficulty through the esophagus and stomach into the duodenum where examination was carried out in a retrograde fashion. The duodenum shows no acute inflammatory changes or ulcerations. Stomach does show [id number] gastritis. No acute ulcerations were noted. Antral biopsies were obtained to look for the presence of Helicobacter pylori. The gastroscope was then retroflexed to visualize the proximal stomach. Again, no tumors or polyps were seen, and there were no acute inflammatory changes proximally. The scope was then straightened and slowly withdrawn carefully visualizing both the greater and lesser curvatures. Again, no ulcerations were noted. Once the scope was withdrawn to the esophagus, the patient does demonstrate [id number] esophagitis and separate biopsies of this area were obtained. This was at approximately 35 cm from the incisors. The esophagus was carefully visualized as the scope was withdrawn. Contractility is good. Vocal cords were briefly visualized as the scope was withdrawn and noted to move symmetrically. The gastroscope was then removed with the patient having tolerated the procedure well. She was taken to recovery room in stable condition. YESIKA DUNLAP /[id number]
== END 2018-11-25 12:23 | disposition home or self-care (01) ==
LOC: MW.SDS 10:01
PROVIDERS: ATTEND Surgery
DX: K21.0 Gastro-esophageal reflux disease with esophagitis (principal); K29.70 Gastritis, unspecified, without bleeding; M51.36 Other intervertebral disc degeneration, lumbar region; G43.909 Migraine, unspecified, not intractable, without status migrainosus; Z79.899 Other long term (current) drug therapy; Z87.891 Personal history of nicotine dependence
CPT/HCPCS: 43239; A9270; J2001; J2250; J2704; J3010; J3490; J7120

== ENCOUNTER 2019-06-30 15:17 | Emergency (ER) | payer BC ==
--- NOTE | 2019-06-30 15:45 | EDM.PDOC ---
ED HPI GENERAL MEDICAL PROBLEM - General Source of Information: Reports: Patient History Limitations: Reports: No Limitations <Filiberto Taylor - Last Filed: 06/30/19 17:32> - General Source of Information: Reports: Patient History Limitations: Reports: No Limitations Left Parietal Head Pain Score (Numeric/FACES): 6 Upper Abdomen Pain Score (Numeric/FACES): 3 <Nalini Shukla - Last Filed: 06/30/19 17:46> - General Chief Complaint: Head Injury Stated Complaint: CONCUSSION Time Seen by Provider: 06/30/19 15:35 - History of Present Illness INITIAL COMMENTS - FREE TEXT/NARRATIVE: HISTORY AND PHYSICAL: History of present illness: Patient is a 54-year-old female presents to the ED With complaint of possible concussion. Patient states for the past 2 days she has had vomiting and diarrhea. She states early sunday morning she was in the bathroom and got up to her knees and states she passed out. She states she was not out very long but woke up with pain to the left side of her head. She states she has since had a headache, blurred vision, neck pain and generally not feeling well. She states she has not had any vomiting today but is still feeling nauseous. She denies fevers, chills, cough, chest, pain shortness of breath. She states she is having epigastric abdominal pain. Review of systems: As per history of present illness and below otherwise all systems reviewed and negative. Past medical history: As per history of present illness and as reviewed below otherwise noncontributory. Surgical history: As per history of present illness and as reviewed below otherwise noncontributory. Social history: No reported history of drug or alcohol abuse. Family history: As per history of present illness and as reviewed below otherwise noncontributory. Physical exam: General: Patient sitting comfortably in no acute distress and nontoxic appearing HEENT: Atraumatic, normocephalic, pupils reactive, negative for conjunctival pallor or scleral icterus, mucous membranes moist, throat clear, neck supple, nontender, trachea midline. No meningeal signs. Lungs: Clear to auscultation, breath sounds equal bilaterally, chest nontender. Heart: S1S2, regular, negative for clicks, rubs, or overt murmur. Abdomen: Mild epigastric abdominal tenderness to palpation. Soft, nondistended. Negative for masses or hepatosplenomegaly. Negative for costovertebral tenderness. No rigidity, rebound, guarding. Pelvis: Stable nontender. 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: Deferred. Rectal: Deferred. Extremities: Atraumatic, negative for cords or calf pain. Neurovascular unremarkable. Neuro: Awake, alert, oriented. Cranial nerves II through XII unremarkable. Cerebellum unremarkable. Motor and sensory unremarkable throughout. Exam nonfocal. Notes: Discussed with patient elevated liver enzymes and patient was offered imaging including abdominal ultrasound. Patient declined imaging at this time. She will follow up with PCP and understands to return to ED if new or worsening symptoms. Diagnostics: CBC, CMP, lipase, EKG, head and cervical CT w/o contrast Therapeutics: 1L NS IV 4mg Zofran IV Prescriptions: none Impression: head injury, gastroenteritis Plan: Drink plenty of small sips of fluids throughout the day and bland food as tolerated Follow-up with primary care provider Return to ED as needed as discussed Definitive disposition and diagnosis as appropriate pending reevaluation and review of above. (Nalini Shukla) - Related Data Allergies Allergy/AdvReac Type Severity Reaction Status Date / Time adhesive tape Allergy Rash Verified 11/21/18 16:30 Home Meds: Home Meds Rizatriptan Benzoate [Rizatriptan] 10 mg PO DAILY PRN 02/07/18 [History] traZODone HCl [Trazodone HCl] 50 mg PO BEDTIME 07/23/18 [History] Sucralfate [Carafate] 1 gm PO Q6H 14 Days #56 cup 11/19/18 [Rx] Past Medical History HEENT History: Reports: Other (See Below) Other HEENT History: wears glasses, has upper partial Cardiovascular History: Reports: Other (See Below) Other Cardiovascular History: hypertensive when in pain Respiratory History: Reports: Pneumonia, Recurrent Gastrointestinal History: Reports: GERD, Other (See Below) Other Gastrointestinal History: dysphagia 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 History: Reports: Renal Calculus Other 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 History: passed kidney stones in the past [employer] History: Reports: Musculoskeletal History: Reports: Back Pain, Chronic, Osteoarthritis Neurological History: Reports: Migraines Other Neuro History: degenerative disc disease Psychiatric History: Reports: Anxiety, Depression Endocrine/Metabolic History: Reports: None Hematologic History: Reports: None Immunologic History: Reports: None Oncologic (Cancer) History: Reports: None Dermatologic History: Reports: None - Infectious Disease History Infectious Disease History: Reports: Chicken Pox - Past Surgical History Head Surgeries/Procedures: Reports: None HEENT Surgical History: Reports: None Cardiovascular Surgical History: Reports: None Respiratory Surgical History: Reports: None GI Surgical History: Reports: Appendectomy, Cholecystectomy, Colonoscopy, EGD ( last one in july), Hernia, Inguinal Female Surgical History: Reports: Hysterectomy, Salpingo-Oophorectomy, Other (See Below) Other Female Surgeries/Procedures: gynecologic laparoscopies Endocrine Surgical History: Reports: None Neurological Surgical History: Reports: None Musculoskeletal Surgical History: Reports: Arthroscopic Knee Oncologic Surgical History: Reports: None Dermatological Surgical History: Reports: None <Nalini Shukla - Last Filed: 06/30/19 17:46> Social & Family History - Family History Family Medical History: Noncontributory Cardiac: Reports: [place] Other Cardiac Family History: grandmother - Caffeine Use Caffeine Use: Reports: Coffee, Tea Caffeine Use Comment: 1 cup of coffee in the morning and drinks herbal tea - Living Situation & Occupation Occupation: Employed <Nalini Shukla - Last Filed: 06/30/19 17:46> ED ROS GENERAL - Review of Systems Review Of Systems: Comprehensive ROS is negative, except as noted in HPI. <Nalini Shukla - Last Filed: 06/30/19 17:46> ED EXAM, HEAD INJURY - Physical Exam Exam: See Below (see dictation) <Nalini Shukla - Last Filed: 06/30/19 17:46> - Vital Signs Last Recorded V/S: Last Vital Signs Temp 97.7 F 06/30/19 17:10 Pulse 63 06/30/19 17:10 Resp 18 06/30/19 17:10 BP 123/70 06/30/19 17:10 Pulse Ox 98 06/30/19 17:10 - Orders/Labs/Meds Orders: Active Orders 24 hr Category Date Time Status EKG Documentation Completion [RC] STAT Care 06/30/19 16:00 Active Sodium Chloride 0.9% [Saline Flush] Med 06/30/19 16:00 Active 10 ml FLUSH ASDIRECTED PRN Sodium Chloride 0.9% [Saline Flush] Med 06/30/19 16:00 Active 2.5 ml FLUSH ASDIRECTED PRN Saline Lock Insert [OM.PC] Stat Oth 06/30/19 16:00 Ordered Medication Orders Sodium Chloride (Saline Flush) 10 ml FLUSH ASDIRECTED PRN PRN Reason: Keep Vein Open Last Admin: 06/30/19 16:35 Dose: 10 ml Sodium Chloride (Saline Flush) 2.5 ml FLUSH ASDIRECTED PRN PRN Reason: Keep Vein Open Last Admin: 06/30/19 16:36 Dose: 2.5 ml Labs: Laboratory Tests 06/30/19 06/30/19 Range/Units 16:22 16:22 WBC 7.77 (4.0-11.0) K/uL RBC 4.80 (4.30-5.90) M/uL Hgb 13.7 (12.0-16.0) g/dL Hct 41.4 (36.0-46.0) % MCV 86.3 (80.0-98.0) fL MCH 28.5 (27.0-32.0) pg MCHC 33.1 (31.0-37.0) g/dL RDW Std Deviation 41.5 (28.0-62.0) fl RDW Coeff of Missy 13 (11.0-15.0) % Plt Count 362 (150-400) K/uL MPV 9.60 (7.40-12.00) fL Neut % (Auto) 57.8 (48.0-80.0) % Lymph % (Auto) 31.9 (16.0-40.0) % Christian % (Auto) 9.3 (0.0-15.0) % Eos % (Auto) 0.4 (0.0-7.0) % Baso % (Auto) 0.6 (0.0-1.5) % Neut # (Auto) 4.5 (1.4-5.7) K/uL Lymph # (Auto) 2.5 H (0.6-2.4) K/uL Christian # (Auto) 0.7 (0.0-0.8) K/uL Eos # (Auto) 0.0 (0.0-0.7) K/uL Baso # (Auto) 0.1 (0.0-0.1) K/uL Nucleated RBC % 0.0 /100WBC Nucleated RBCs # 0 K/uL Sodium 141 (136-145) mmol/L Potassium 3.7 (3.5-5.1) mmol/L Chloride 104 (98-107) mmol/L Carbon Dioxide 27.0 (21.0-32.0) mmol/L BUN 19 H (7.0-18.0) mg/dL Creatinine 0.8 (0.6-1.0) mg/dL Est Cr Clr Drug Dosing 77.27 mL/min Estimated GFR (MDRD) > 60.0 ml/min Glucose 102 (74-106) mg/dL Calcium 9.9 (8.5-10.1) mg/dL Total Bilirubin 0.5 (0.2-1.0) mg/dL AST 162 H (15-37) IU/L ALT 215 H (14-63) IU/L Alkaline Phosphatase 123 H (46-116) U/L Total Protein 7.3 (6.4-8.2) g/dL Albumin 4.1 (3.4-5.0) g/dL Globulin 3.2 (2.6-4.0) g/dL Albumin/Globulin Ratio 1.3 (0.9-1.6) Lipase 85 (73-393) U/L Meds: Medications Generic Name Dose Route Start Last Admin Trade Name Freq PRN Reason Stop Dose Admin Sodium Chloride 10 ml 06/30/19 16:00 06/30/19 16:35 Saline Flush FLUSH 10 ml ASDIRECTED PRN Administration Keep Vein Open Sodium Chloride 2.5 ml 06/30/19 16:00 06/30/19 16:36 Saline Flush FLUSH 2.5 ml ASDIRECTED PRN Administration Keep Vein Open Discontinued Medications Generic Name Dose Route Start Last Admin Trade Name Freq PRN Reason Stop Dose Admin Al Hydroxide/Mg Hydroxide 15 0 ml 06/30/19 16:00 06/30/19 16:31 ml/ Lidocaine HCl 5 ml PO 06/30/19 16:01 20 each ONETIME ONE Administration Sodium Chloride 1,000 mls @ 999 mls/hr 06/30/19 16:00 06/30/19 16:29 Normal Saline IV 06/30/19 17:00 999 mls/hr STAT ONE Administration Ondansetron HCl 4 mg 06/30/19 16:00 06/30/19 16:29 Zofran IVPUSH 06/30/19 16:01 4 mg ONETIME ONE Administration Departure <Filiberto Taylor - Last Filed: 06/30/19 17:32> - Departure Time of Disposition: 17:44 Condition: Good <Nalini Shukla - Last Filed: 06/30/19 17:46> - Departure Disposition: Home, Self-Care 01 Clinical Impression: Concussion, Gastroenteritis - Discharge Information Referrals: Lyndsey MOREJON [Primary Care Provider] - Forms: ED Department Discharge Additional Instructions: The following information is given to patients seen in the emergency department who are being discharged to home. This information is to outline your options for follow-up care. We provide all patients seen in our emergency department with a follow-up referral. The need for follow-up, as well as the timing and circumstances, are variable depending upon the specifics of your emergency department visit. If you don't have a primary care physician on staff, we will provide you with a referral. We always advise you to contact your personal physician following an emergency department visit to inform them of the circumstance of the visit and for follow-up with them and/or the need for any referrals to a consulting specialist. The emergency department will also refer you to a specialist when appropriate. This referral assures that you have the opportunity for follow-up care with a specialist. All of these measure are taken in an effort to provide you with optimal care, which includes your follow-up. Under all circumstances we always encourage you to contact your private physician who remains a resource for coordinating your care. When calling for follow-up care, please make the office aware that this follow-up is from your recent emergency room visit. If for any reason you are refused follow-up, please contact the [facility] at and asked to speak to the emergency department charge nurse. [facility] [address] [place] [id number] [facility] [address] [place] [id number] Drink plenty of small sips of fluids throughout the day and bland food as tolerated Follow-up with primary care provider Return to ED as needed as discussed Sepsis Event Note - Focused Exam Date Exam was Performed: 06/30/19 Time Exam was Performed: 16:43 <Kris Taylorman - Last Filed: 06/30/19 17:32> - Focused Exam Date Exam was Performed: 06/30/19 Time Exam was Performed: 17:43 <Nalini Shukla - Last Filed: 06/30/19 17:46> - Focused Exam Vital Signs: Vital Signs Temp Pulse Resp BP Pulse Ox 06/30/19 17:10 97.7 F 63 18 123/70 98 06/30/19 15:34 97.6 F 70 16 142/83 H 96 - My Orders Last 24 Hours: My Active Orders 06/30/19 16:00 EKG Documentation Completion [RC] STAT Sodium Chloride 0.9% [Saline Flush] 10 ml FLUSH ASDIRECTED PRN Sodium Chloride 0.9% [Saline Flush] 2.5 ml FLUSH ASDIRECTED PRN Saline Lock Insert [OM.PC] Stat - Assessment/Plan Last 24 Hours: My Active Orders 06/30/19 16:00 EKG Documentation Completion [RC] STAT Sodium Chloride 0.9% [Saline Flush] 10 ml FLUSH ASDIRECTED PRN Sodium Chloride 0.9% [Saline Flush] 2.5 ml FLUSH ASDIRECTED PRN Saline Lock Insert [OM.PC] Stat
[2019-06-30] MEDS ORDERED: Sodium Chloride 0.9% 2.5 ML Syringe FLUSH PRN (16:00)
[2019-06-30] MEDS ORDERED: Ondansetron 4 MG/2 ML SDV IVPUSH ONE (16:00)
[2019-06-30] MEDS ORDERED: Sodium Chloride 0.9% 10 ML Syringe FLUSH PRN (16:00)
[2019-06-30] MEDS ORDERED: Alum Hydrox/Mag Hydrox/Simeth 15 ML, Lidocaine 2% 5 ML PO ONE ×2 (16:00)
[2019-06-30] MEDS ORDERED: Sodium Chloride 0.9% 1,000 ML IV ONE (16:00)
[2019-06-30 16:51] LABS: BLOOD UREA NITROGEN,BUN 19 mg/dL (7.0-18.0); CHLORIDE,CL 104 mmol/L (98-107); GLUCOSE RANDOM 102 mg/dL (74-106); LIPASE 85 U/L (73-393); POTASSIUM,K 3.7 mmol/L (3.5-5.1); SODIUM,NA 141 mmol/L (136-145)
--- NOTE | 2019-06-30 17:07 | CT ---
Head CT Technique: Multiple axial sections through the brain were obtained. Intravenous contrast was not utilized. Comparison: No prior intracranial imaging is available. Findings: Ventricles along with basal cisterns and sulci over the convexities are within normal limits for the patient's age. No abnormal parenchymal densities are seen. No evidence of intracranial hemorrhage. No midline shift or mass-effect is appreciated. Bone window settings were reviewed. Visualized mastoid sinuses and visualized paranasal sinuses are clear. No acute calvarial abnormality is appreciated. Impression: 1. Nothing acute is appreciated on noncontrast head CT study. Diagnostic code #1 This report was dictated in MDT
--- NOTE | 2019-06-30 17:10 | CT ---
CT cervical spine Technique: Multiple axial sections were obtained from above C1 inferiorly to the bottom of T2. Reconstructed sagittal and coronal images were reviewed. Comparison: No prior cervical spine imaging is available. Findings: Ununited posterior arch of C1 is seen which is felt to be a normal variant. Vertebral body heights and disc spaces appear maintained. Vertebral bodies and posterior arches are intact. No fracture is appreciated. Mild scattered degenerative apophyseal change is seen throughout the visualized spine. No abnormal subluxation is seen. Neural foramina are patent as well as central canal appears patent within the cervical spine. Minimal degenerative change is scattered within the uncovertebral joints. Impression: 1. Mild degenerative change as described above. 2. Nothing acute is appreciated on CT study of the cervical spine. Diagnostic code #2 This report was dictated in MDT
[2019-06-30 17:58] VITALS: BP 107/70; PULSE 66
== END 2019-06-30 17:56 | disposition home or self-care (01) ==
LOC: MW.ED 15:17
DX: S06.0X9A Concussion with loss of consciousness of unspecified duration, initial encounter (principal); K52.9 Noninfective gastroenteritis and colitis, unspecified; M19.90 Unspecified osteoarthritis, unspecified site; F41.9 Anxiety disorder, unspecified; F32.9 Major depressive disorder, single episode, unspecified; Z90.49 Acquired absence of other specified parts of digestive tract; W22.8XXA Striking against or struck by other objects, initial encounter
CPT/HCPCS: 70450; 72125; 80053; 83690; 85025; 93005; 96361; 96374; 99284; A9270; J2405; J7030

== ENCOUNTER 2020-01-16 06:39 | Day surgery (SDC) | payer BC ==
[~2020-01-16 06:39] MED LIST changes: -Glycopyrrolate 0.2 MG/ML SDV ONE; -Lidocaine 2% 5 ML SDV ONE; -Midazolam 1 MG/ML 2 ML SDV ONE; -Propofol 200 MG/20 ML SDV ONE
--- NOTE | 2020-01-16 07:13 | PCM.PREANE ---
Preanesthetic Assessment - Anesthesia/Transfusion/Family Hx Anesthesia History: Prior Anesthesia Without Reaction Family History of Anesthesia Reaction: No Transfusion History: No Prior Transfusion(s) Intubation History: Unknown - Review of Systems General: No Symptoms Pulmonary: No Symptoms Cardiovascular: No Symptoms Gastrointestinal: Abdominal Pain, Difficulty Swallowing, Other (change in bowel habbits) Neurological: No Symptoms Other: Reports: None - Physical Assessment Height: 5 ft 7 in Weight: 64.864 kg ASA Class: 2 Mental Status: Alert & Oriented x3 Airway Class: Mallampati = 2 Dentition: Reports: Normal Dentition Thyro-Mental Finger Breadths: 3 Mouth Opening Finger Breadths: 3 ROM/Head Extension: Full Lungs: Clear to Auscultation, Normal Respiratory Effort Cardiovascular: Regular Rate, Regular Rhythm - Allergies Allergies/Adverse Reactions: Allergies Allergy/AdvReac Type Severity Reaction Status Date / Time adhesive tape Allergy Rash Verified 01/12/20 11:13 - Blood Blood Available: No - Anesthesia Plan Pre-Op Medication Ordered: None - Acknowledgements Pt an Appropriate Candidate for the Planned Anesthesia: Yes Alternatives and Risks of Anesthesia Discussed w Pt/Guardian: Yes Pt/Guardian Understands and Agrees with Anesthesia Plan: Yes PreAnesthesia Questionnaire HEENT History: Reports: Impaired Vision, Other (See Below) Other HEENT History: wears glasses, has upper partial Cardiovascular History: Reports: None Respiratory History: Reports: None, Pneumonia, Recurrent Gastrointestinal History: Reports: GERD, Other (See Below) (Johnson's esophagus) 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 History: Reports: Renal Calculus Other 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 History: passed kidney stones in the past RENAL MEDICINE SPECIALIST History: Reports: Musculoskeletal History: Reports: Back Pain, Chronic, Osteoarthritis, Other (See Below) (chronic pain syndrome) Neurological History: Reports: Migraines Other Neuro History: degenerative disc disease Psychiatric History: Reports: Anxiety, Depression Endocrine/Metabolic History: Reports: None Hematologic History: Reports: None Immunologic History: Reports: None Oncologic (Cancer) History: Reports: None Dermatologic History: Reports: None - Infectious Disease History Infectious Disease History: Reports: None - Past Surgical History Head Surgeries/Procedures: Reports: None HEENT Surgical History: Reports: None Cardiovascular Surgical History: Reports: None Respiratory Surgical History: Reports: None GI Surgical History: Reports: Appendectomy, Cholecystectomy, Colonoscopy, EGD, Hernia, Inguinal Other GI Surgeries/Procedures: Hiatal hernia Female Surgical History: Reports: Hysterectomy, Salpingo-Oophorectomy, Other (See Below) Other Female Surgeries/Procedures: gynecologic laparoscopies Endocrine Surgical History: Reports: None Neurological Surgical History: Reports: None Musculoskeletal Surgical History: Reports: Arthroscopic Knee Oncologic Surgical History: Reports: None Dermatological Surgical History: Reports: None - SUBSTANCE USE Tobacco Use Status *Q: Former Tobacco User - HOME MEDS Home Medications: Home Meds Rizatriptan Benzoate [Rizatriptan] 10 mg PO DAILY PRN 02/07/18 [History] Sucralfate [Carafate] 1 gm PO Q6H 14 Days #56 cup 11/19/18 [Rx] DULoxetine [Cymbalta] 1 tab PO DAILY 01/12/20 [History] Ibuprofen [Advil] 2 tab PO ASDIRECTED PRN 01/12/20 [History] Multivitamin with Minerals [Hair, Skin and Nails] 1 tab PO ASDIRECTED 01/12/20 [History] Omeprazole 20 mg PO ASDIRECTED 01/12/20 [History] - CURRENT (IN HOUSE) MEDS Current Meds: Current Medications Lactated Ringer's (Ringers, Lactated) 1,000 mls @ 125 mls/hr IV ASDIRECTED ARETHA
[2020-01-16] MEDS ORDERED: Midazolam 1 MG/ML 2 ML SDV ONE (07:32)
[2020-01-16] MEDS ORDERED: fentaNYL 100 MCG/2 ML SDV ONE (07:32)
[2020-01-16] MEDS ORDERED: Propofol 200 MG/20 ML SDV ONE ×3 (07:32→08:33)
[2020-01-16] MEDS ORDERED: Naloxone 0.4 MG/ML Syringe IVPUSH PRN (08:31)
[2020-01-16] MEDS ORDERED: EPINEPHrine 1:10,000 1 MG/10 ML Syringe IVPUSH PRN (08:31)
[2020-01-16] MEDS ORDERED: 50% Dextrose in Water 50 ML Syringe IVPUSH PRN (08:31)
[2020-01-16] MEDS ORDERED: fentaNYL 100 MCG/2 ML SDV IVPUSH PRN (08:31)
[2020-01-16] MEDS ORDERED: Albuterol 0.083% 2.5 MG/3 ML Neb Soln NEB PRN (08:31)
[2020-01-16] MEDS ORDERED: Ondansetron 4 MG/2 ML SDV IVPUSH PRN (08:31)
[2020-01-16] MEDS ORDERED: Atropine 0.1 MG/ML 10 ML Syringe IVPUSH PRN ×2 (08:31)
--- NOTE | 2020-01-16 08:52 | PCM.OPNOTE ---
- General Post-Op/Procedure Note Date of Surgery/Procedure: 01/16/20 Operative Procedure(s): Esophagogastroduodenoscopy with gastric and distal esophageal biopsies Pre Op Diagnosis: Epigastric pain. History of Johnson's esophagus. Change in bowel habits. Unexplained weight loss. Post-Op Diagnosis: Mild to moderate chronic gastritis. Distal esophagitis. No evidence of colonic neoplasia. Anesthesia Technique: MAC (ASA II) Primary Surgeon: Joey Tran Color Blender: Inder Acosta Condition: Good Free Text/Narrative:: DICTATION [id number] CPT CODE [id number]
[2020-01-16] MEDS ORDERED: Lactated Ringers 1,000 ML IV SCH (09:00)
--- NOTE | 2020-01-16 09:09 | PCM.POSTAN ---
POST ANESTHESIA ASSESSMENT - MENTAL STATUS Mental Status: Alert, Oriented - VITAL SIGNS Vital Signs: Last Vital Signs Temp 36.2 C 01/16/20 07:07 Pulse 80 01/16/20 08:57 Resp 17 01/16/20 08:57 BP 99/69 01/16/20 08:57 Pulse Ox 99 01/16/20 08:57 - RESPIRATORY Respiratory Status: Respiratory Rate WNL, Airway Patent, O2 Saturation Stable - CARDIOVASCULAR CV Status: Pulse Rate WNL, Blood Pressure Stable - GASTROINTESTINAL GI Status: No Symptoms - PAIN Pain Score: 5 - POST OP HYDRATION Hydration Status: Adequate & Stable - OBSERVATIONS Free Text/Narrative:: No anesthesia problems
--- NOTE | 2020-01-16 09:39 | PCM48HPAN ---
Post Anesthesia Note - EVALUATION WITHIN 48HRS OF ANESTHETIC Vital Signs in Normal Range: Yes Patient Participated in Evaluation: Yes Respiratory Function Stable: Yes Airway Patent: Yes Cardiovascular Function Stable: Yes Hydration Status Stable: Yes Pain Control Satisfactory: Yes Nausea and Vomiting Control Satisfactory: Yes Mental Status Recovered: Yes Vital Signs: Last Vital Signs Temp 36.2 C 01/16/20 07:07 Pulse 80 01/16/20 08:57 Resp 17 01/16/20 08:57 BP 99/69 01/16/20 08:57 Pulse Ox 99 01/16/20 08:57 - COMMENTS/OBSERVATIONS Free Text/Narrative:: No anesthesia problems
[2020-01-16 10:07] VITALS: BP 100/56; PULSE 53
--- NOTE | 2020-01-16 12:08 | OR ---
SURGEON: Joey Tran M.D. DATE OF PROCEDURE: 01/16/2020 PROCEDURE PERFORMED: Colonoscopy. PRIMARY SURGEON: Joey Tran M.D. ANESTHESIA: MAC. ASA CLASSIFICATION: II. PREOPERATIVE DIAGNOSIS: Change in bowel habits with unexplained weight loss. POSTOPERATIVE DIAGNOSIS: No evidence of neoplasia. DESCRIPTION OF PROCEDURE: With the patient maintained in the left lateral decubitus position, the colonoscope was inserted into the rectum and advanced with minimal difficulty to the cecum. The cecum was identified by internal landmarks and external pressure. The colonoscope was retroflexed to visualize the ascending colon from below, then straightened and slowly withdrawn. The cecum, ascending colon, hepatic flexure, transverse colon, splenic flexure, descending colon, sigmoid colon, and rectum were very well visualized. No tumors, polyps, diverticula, or angiodysplastic changes were noted anywhere in the lower gastrointestinal tract. Once the colonoscope was withdrawn to the rectum, it was retroflexed to visualize the anal orifice from above. No acute hemorrhoidal changes were noted. No polyps were encountered. The colonoscope was then straightened, the rectum aspirated, and the colonoscope removed. The patient tolerated the procedure well and was taken to recovery room in stable condition. YESIKA / FABI /[id number]
--- NOTE | 2020-01-16 13:36 | OR ---
SURGEON: Joey Tran M.D. DATE OF PROCEDURE: 01/16/2020 PROCEDURE PERFORMED: Esophagogastroduodenoscopy with gastric and distal esophageal biopsies. PRIMARY SURGEON: Joey Tran MD. ANESTHESIA: MAC. ASA CLASSIFICATION: II. PREOPERATIVE DIAGNOSES: 1. Epigastric pain. 2. History of Johnsno's esophagus. 3. Unexplained weight loss. POSTOPERATIVE DIAGNOSES: 1. Mild chronic gastritis. 2. Distal esophagitis. DESCRIPTION OF PROCEDURE: The patient was taken to the endoscopy room, positioned on the endoscopy table in the left lateral decubitus position. Time-out was called for appropriate identification of the patient and procedure. The bite block was placed between the patient's teeth. Monitored anesthesia care was provided. The gastroscope was inserted in to the oropharynx and advanced without difficulty through the esophagus and stomach into the duodenum, where examination was now carried out in a retrograde fashion. The duodenum shows no acute inflammatory changes or ulcerations. 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 Antral biopsies were obtained to look for the presence of Helicobacter pylori. The gastroscope was then retroflexed to visualize the proximal stomach. The patient does have a small hiatal hernia. No acute inflammatory changes were noted in the proximal stomach and no polyps were identified. The gastroscope was then straightened and slowly withdrawn. The GE junction does show some mild- to-moderate inflammatory changes and separate biopsies of this area were obtained. The Z-line is at 36 cm. The esophagus itself demonstrated good contractility. No mid or proximal lesions were identified. The vocal cords were not visualized. The gastroscope was then removed with the patient having tolerated the procedure well. Following colonoscopy, she was taken to recovery room in stable condition. YESIKA / FABI /[id number]
== END 2020-01-16 09:50 | disposition home or self-care (01) ==
LOC: MW.SDS 06:39
PROVIDERS: ATTEND Surgery
DX: R19.4 Change in bowel habit (principal); K29.50 Unspecified chronic gastritis without bleeding; K25.9 Gastric ulcer, unspecified as acute or chronic, without hemorrhage or perforation; K22.70 Barrett's esophagus without dysplasia; K44.9 Diaphragmatic hernia without obstruction or gangrene; G89.4 Chronic pain syndrome; K21.00 Gastro-esophageal reflux disease with esophagitis, without bleeding; G43.909 Migraine, unspecified, not intractable, without status migrainosus; R63.4 Abnormal weight loss; Z79.899 Other long term (current) drug therapy; Z98.890 Other specified postprocedural states; Z87.891 Personal history of nicotine dependence; Z91.048 Other nonmedicinal substance allergy status
CPT/HCPCS: 43239; 45378; J2001; J2250; J2704; J3010; J7120; 00813; 88305; 88312

== ENCOUNTER 2020-01-22 15:00 | Emergency (ER) | payer BC ==
[2020-01-22] MEDS ORDERED: Acetaminophen/HYDROcodone 325-7.5 MG Tab PO STA (15:32)
--- NOTE | 2020-01-22 16:26 | CR ---
Indication: Fall Technique: AP view of the pelvis. Comparison: None Findings: The pelvic ring and proximal femora are intact. The femoroacetabular joint is anatomically aligned. The surrounding soft tissues are unremarkable. Impression : No acute abnormality. Dictated by Maryana Vargas MD @ Jan 22 2020 4:25PM Signed by Dr. Maryana Vargas @ Jan 22 2020 4:25PM
--- NOTE | 2020-01-22 16:59 | CT ---
INDICATION: Fall TECHNIQUE: CT lumbar spine without contrast. COMPARISON: A lumbar spine MRI dated 02/02/2017 FINDINGS: The lumbar spine alignment is within normal limits. The facets are anatomically aligned. The vertebral body heights are preserved without a significant compression deformity. There is no evidence of an acute lumbar spine fracture. Mild degenerative disc disease changes are seen with multilevel disc bulges and disc calcifications. No paravertebral soft tissue mass is seen. Postcholecystectomy changes are noted. IMPRESSION: No evidence of an acute lumbar spine fracture. Mild degenerative changes. Please note that all CT scans at this facility use dose modulation, iterative reconstruction, and/or weight-based dosing when appropriate to reduce radiation dose to as low as reasonably achievable. Dictated by Richard Evans MD @ Jan 22 2020 4:46PM Signed by Dr. Richard Evans @ Jan 22 2020 4:57PM
--- NOTE | 2020-01-22 17:48 | EDM.PDOC ---
ED HPI GENERAL MEDICAL PROBLEM - General Chief Complaint: Back Pain or Injury Stated Complaint: INJURED BACK Time Seen by Provider: 01/22/20 15:11 Source of Information: Reports: Patient History Limitations: Reports: No Limitations - History of Present Illness INITIAL COMMENTS - FREE TEXT/NARRATIVE: HISTORY AND PHYSICAL: History of present illness: Seven is a 54-year-old female who resents to the ED today with concern of low back injury that occurred just prior to travel to the ED. Patient states she was walking to her garage when she slipped and landed directly on her buttocks. Patient states that she has had prior injury to her low back and has had chronic back pain issues. Patient states that she has been able to ambulate but does have pain with doing so. Patient denies any loss or retention of bowel bladder function or saddle anesthesia. Denies any other symptoms or concerns. Patient denies fever, chills, chest pain, shortness of breath, or cough. Denies headache, neck stiff ness, change in vision, syncope, or near syncope. Denies nausea, vomiting, abdominal pain, diarrhea, constipation, or dysuria. Has not noted any blood in urine or stool. Patient has been eating and drinking appropriately. Review of systems: As per history of present illness and below otherwise all systems reviewed and negative. Past medical history: As per history of present illness and as reviewed below otherwise noncontributory. Surgical history: As per history of present illness and as reviewed below otherwise noncontributory. Social history: See social history for further information Family history: As per history of present illness and as reviewed below otherwise noncontributory. Physical exam: General: Patient is alert, oriented, and in no acute distress. Patient sitting comfortably on exam table. HEENT: Atraumatic, normocephalic, pupils equal and reactive bilaterally, negative for conjunctival pallor or scleral icterus, mucous membranes moist, TMs normal bilaterally, throat clear, neck supple, nontender, trachea midline. No drooling or trismus noted. No meningeal signs. No hot potato voice noted. Lungs: Clear to auscultation, breath sounds equal bilaterally, chest nontender. Heart: S1S2, regular rate and rhythm without overt murmur Abdomen: Soft, nondistended, nontender. Negative for masses or hepatosplenomegaly. Negative for costovertebral tenderness. Pelvis: Stable nontender. 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: Deferred. Rectal: Deferred. Skin: Intact, warm, dry. No lesions or rashes noted. Extremities: No obvious deformity of the complete spine. No step-offs, or crepitus to palpation of the complete spine. Patient does have significant pain with palpation of the generalized lumbar spine. Patient did ambulate into the ED but did have pain with doing so. Heel/Toe gait intact. Patellar reflexes intact bilaterally. Patient does have pain with range of motion of the lumbar spine but is still full range of motion of the cervical and thoracic spine. Otherwise, Atraumatic, negative for cords or calf pain. Neurovascular unremarkable. Neuro: Awake, alert, oriented. Cranial nerves II through XII unremarkable. Cerebellum unremarkable. Motor and sensory unremarkable throughout. Exam nonfocal. Notes: Patient is much more comfortable following therapeutics today. She is able to ambulate in the ED and is much improved with therapeutics. Urinalysis does show 2-3 WBC, which could indicate early infection, however patient is asymptomatic at this time and urine did have some contamination. Will send urine for culture and wait for culture for possible antibiotics. Signs and symptoms that would prompt return to the ED thoroughly discussed with patient. Discussed importance for follow-up with primary care provider. Voices understanding and is agreeable to plan of care. Denies any further questions or concerns at this time. Diagnostics: Lumbar CT, Pelvic XR Therapeutics: [place] 7.5/325 Prescription: Diclofenac, Flexeril Impression: Low back pain / injury Plan: 1. The medication you received today does cause drowsiness, so do not drive for the remaining day. 2. When resting please lay on a flat firm surface. Limit your mobility to prevent muscle stiffness. Get up to ambulate/move around/gentle stretching multiple times throughout the day. May alternate heat and ice to painful areas. 3. Tylenol as needed for back pain. Otherwise, take the prescribed Flexeril and diclofenac as directed. Diclofenac as an anti-inflammatory medication so do not take any additional NSAIDs with this medication, such as naproxen, ibuprofen, or Aleve. Flexeril, this medication may cause drowsiness, so do not take it while driving or needing to be functioning outside of the home. 4. Follow-up with your primary care provider as discussed. Return to the ED as needed and as discussed. Definitive disposition and diagnosis as appropriate pending reevaluation and review of above. lower R back, R hip, Pelvis Pain Score (Numeric/FACES): 10 - Related Data Allergies Allergy/AdvReac Type Severity Reaction Status Date / Time adhesive tape Allergy Rash Verified 01/12/20 11:13 Home Meds: Home Meds Rizatriptan Benzoate [Rizatriptan] 10 mg PO DAILY PRN 02/07/18 [History] DULoxetine [Cymbalta] 1 tab PO DAILY 01/12/20 [History] Ibuprofen [Advil] 2 tab PO ASDIRECTED PRN 01/12/20 [History] Multivitamin with Minerals [Hair, Skin and Nails] 1 tab PO ASDIRECTED 01/12/20 [History] Omeprazole 20 mg PO DAILY 01/12/20 [History] Cyclobenzaprine [Flexeril] 10 mg PO TID PRN #9 tab 01/22/20 [Rx] Diclofenac Sodium [Voltaren] 75 mg PO BIDMEALS PRN #15 tab.cr 01/22/20 [Rx] Past Medical History HEENT History: Reports: Impaired Vision, Other (See Below) Other HEENT History: wears glasses, has upper partial Cardiovascular History: Reports: None Respiratory History: Reports: None, Pneumonia, Recurrent Gastrointestinal History: Reports: GERD, Other (See Below) 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 History: Reports: Renal Calculus Other 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 History: passed kidney stones in the past 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: Musculoskeletal History: Reports: Back Pain, Chronic, Osteoarthritis, Other (See Below) Neurological History: Reports: Migraines Other Neuro History: degenerative disc disease Psychiatric History: Reports: Anxiety, Depression Endocrine/Metabolic History: Reports: None Hematologic History: Reports: None Immunologic History: Reports: None Oncologic (Cancer) History: Reports: None Dermatologic History: Reports: None - Infectious Disease History Infectious Disease History: Reports: None - Past Surgical History Head Surgeries/Procedures: Reports: None HEENT Surgical History: Reports: None Cardiovascular Surgical History: Reports: None Respiratory Surgical History: Reports: None GI Surgical History: Reports: Appendectomy, Cholecystectomy, Colonoscopy, EGD, Hernia, Inguinal Other GI Surgeries/Procedures: Hiatal hernia Female Surgical History: Reports: Hysterectomy, Salpingo-Oophorectomy, Other (See Below) Other Female Surgeries/Procedures: gynecologic laparoscopies Endocrine Surgical History: Reports: None Neurological Surgical History: Reports: None Musculoskeletal Surgical History: Reports: Arthroscopic Knee Oncologic Surgical History: Reports: None Dermatological Surgical History: Reports: None Social & Family History - Family History Family Medical History: Noncontributory Cardiac: Reports: [place] Other Cardiac Family History: grandmother - Tobacco Use Tobacco Use Status *Q: Former Tobacco User Used Tobacco, but Quit: Yes Month/Year Tobacco Last Used: 5 years ago - Caffeine Use Caffeine Use: Reports: Coffee, Tea Caffeine Use Comment: 1 cup of coffee in the morning and drinks herbal tea - Recreational Drug Use Recreational Drug Use: No - Living Situation & Occupation Occupation: Employed ED ROS GENERAL - Review of Systems Review Of Systems: Comprehensive ROS is negative, except as noted in HPI. ED EXAM, GENERAL - Physical Exam Exam: See Below (see dictation) Course - Vital Signs Last Recorded V/S: Last Vital Signs Temp 97.1 F 01/22/20 15:18 Pulse 62 01/22/20 18:02 Resp 16 01/22/20 18:02 BP 123/83 01/22/20 18:02 Pulse Ox 98 01/22/20 18:02 - Orders/Labs/Meds Orders: Active Orders 24 hr Category Date Time Status CULTURE URINE [RM] Stat Lab 01/22/20 15:40 Received Labs: Laboratory Tests 01/22/20 Range/Units 15:40 Urine Color YELLOW Urine Appearance CLEAR Urine pH 5.5 (5.0-8.0) Ur Specific [place] >= 1.030 (1.001-1.035) Urine Protein NEGATIVE (NEGATIVE) mg/dL Urine Glucose (UA) NEGATIVE (NEGATIVE) mg/dL Urine Ketones NEGATIVE (NEGATIVE) mg/dL Urine Occult Blood NEGATIVE (NEGATIVE) Urine Nitrite NEGATIVE (NEGATIVE) Urine Bilirubin NEGATIVE (NEGATIVE) Urine Urobilinogen 0.2 (<2.0) EU/dL Ur Leukocyte Esterase SMALL H (NEGATIVE) Urine RBC 0-1 (0-2/HPF) Urine WBC 2-3 (0-5/HPF) Ur Epithelial Cells FEW (NONE-FEW) Urine Bacteria FEW (NEGATIVE) Meds: Medications Discontinued Medications Generic Name Dose Route Start Last Admin Trade Name Freq PRN Reason Stop Dose Admin Hydrocodone Bitart/Acetaminophen 1 tab 01/22/20 15:32 01/22/20 15:38 [place] 325-7.5 Mg PO 01/22/20 15:33 1 tab NOW STA Administration Departure - Departure Time of Disposition: 17:47 Disposition: Home, Self-Care 01 Clinical Impression: Low back pain Qualifiers: Chronicity: acute Back pain laterality: bilateral Sciatica presence: without sciatica Qualified Code(s): M54.5 - Low back pain - Discharge Information Prescriptions: Cyclobenzaprine [Flexeril] 10 mg PO TID PRN #9 tab PRN Reason: Spasms Diclofenac Sodium [Voltaren] 75 mg PO BIDMEALS PRN #15 tab.cr PRN Reason: Pain Instructions: Acute Back Pain, Adult Referrals: Beth Nayak, PLASTIC OUTFITTER [Primary Care Provider] - Forms: ED Department Discharge Additional Instructions: The following information is given to patients seen in the emergency department who are being discharged to home. This information is to outline your options for follow-up care. We provide all patients seen in our emergency department with a follow-up referral. The need for follow-up, as well as the timing and circumstances, are variable depending upon the specifics of your emergency department visit. If you don't have a primary care physician on staff, we will provide you with a referral. We always advise you to contact your personal physician following an emergency department visit to inform them of the circumstance of the visit and for follow-up with them and/or the need for any referrals to a consulting specialist. The emergency department will also refer you to a specialist when appropriate. This referral assures that you have the opportunity for follow-up care with a specialist. All of these measure are taken in an effort to provide you with optimal care, which includes your follow-up. Under all circumstances we always encourage you to contact your private physician who remains a resource for coordinating your care. When calling for follow-up care, please make the office aware that this follow-up is from your recent emergency room visit. If for any reason you are refused follow-up, please contact the [facility] Emergency Department at and asked to speak to the emergency department charge nurse. [facility] [address] [place] [id number] [address] [place] [address] 1. The medication you received today does cause drowsiness, so do not drive for the remaining day. 2. When resting please lay on a flat firm surface. Limit your mobility to prevent muscle stiffness. Get up to ambulate/move around/gentle stretching multiple times throughout the day. May alternate heat and ice to painful areas. 3. Tylenol as needed for back pain. Otherwise, take the prescribed Flexeril and diclofenac as directed. Diclofenac as an anti-inflammatory medication so do not take any additional NSAIDs with this medication, such as naproxen, ibuprofen, or Aleve. Flexeril, this medication may cause drowsiness, so do not take it while driving or needing to be functioning outside of the home. 4. Follow-up with your primary care provider as discussed. Return to the ED as needed and as discussed. Sepsis Event Note (ED) - Evaluation Sepsis Screening Result: No Definite Risk - Focused Exam Vital Signs: Vital Signs Temp Pulse Resp BP Pulse Ox 01/22/20 18:02 62 16 123/83 98 01/22/20 15:18 97.1 F 92 18 144/87 H 96 - My Orders Last 24 Hours: My Active Orders 01/22/20 15:40 CULTURE URINE [RM] Stat - Assessment/Plan Last 24 Hours: My Active Orders 01/22/20 15:40 CULTURE URINE [RM] Stat
[2020-01-22 18:03] VITALS: BP 123/83; PULSE 62
== END 2020-01-22 18:03 | disposition home or self-care (01) ==
LOC: MW.ED 15:00
DX: M54.5 Low back pain (principal); F41.9 Anxiety disorder, unspecified; F32.9 Major depressive disorder, single episode, unspecified; K21.9 Gastro-esophageal reflux disease without esophagitis; Z87.891 Personal history of nicotine dependence; Z91.048 Other nonmedicinal substance allergy status; Z79.899 Other long term (current) drug therapy; W01.0XXA Fall on same level from slipping, tripping and stumbling without subsequent striking against object, initial encounter
CPT/HCPCS: 72131; 72170; 81001; 87086; 99284; A9270

== ENCOUNTER 2020-05-04 09:28 | Inpatient (IN) | payer BC ==
[2020-05-04] MEDS ORDERED: Sodium Chloride 0.9% 2.5 ML Syringe FLUSH PRN ×2 (09:30→13:20)
[2020-05-04] MEDS ORDERED: Sodium Chloride 0.9% 10 ML Syringe FLUSH PRN (09:30)
--- NOTE | 2020-05-04 09:33 | EDM.PDOC ---
ED HPI GENERAL MEDICAL PROBLEM - General Stated Complaint: SHORT OF BREATH Time Seen by Provider: 05/04/20 09:30 Source of Information: Reports: Patient History Limitations: Reports: No Limitations - History of Present Illness INITIAL COMMENTS - FREE TEXT/NARRATIVE: 54-year-old female with history of migraine, GERD, Johnson's esophagus presents with headache and chest pain. She was woken up yesterday morning with a moderate, left-sided throbbing headache that radiates to the frontal region, described as throbbing sensation, associated with 3 episodes of nonbloody vomitus and dry heaving, light sensitivity. She denies fever, chills, generalized malaise, neck stiffness or neck pain, chills. She took her triptan at 2 PM yesterday and started developing shortness of breath last night. This morning she noticed tightness to the left side of her chest, nonradiating, nonpleuritic, constant, 7/10 in severity, she feels like someone is sitting on her chest. Her last stress test was greater than 10 years ago. She has a history of esophagitis and GERD, and she also notes epigastric burning pain that is nonradiating, mild, constant, no alleviating factors. ROS: A 10-point review of systems, other than pertinent positives and negatives as stated per HPI, is otherwise negative Past medical history: No additional pertinent history Past Surgical history: No additional pertinent history Social history: No additional pertinent history Family history: No additional pertinent history PHYSICAL EXAM General: AOx4, GCS = 15, No distress HEENT: dry mucous membrane Neck: supple, no meningismus, no Kernig or Brudzinski Cardiac: S1S2 RRR Respiratory: CTAB, no crackles or rales, no wheezing Abdomen: Soft, epigastric tender, no rebound or guarding, nondistended, no pulsatile mass. Back: nontender Musculoskeletal: NVI distally, no deformity Neuro: No focal deficits, CN 2 - 12 WNL. Chest Pain Score (Numeric/FACES): 6 - Related Data Allergies Allergy/AdvReac Type Severity Reaction Status Date / Time adhesive tape Allergy Rash Verified 05/04/20 09:44 Home Meds: Home Meds Ergocalciferol (Vitamin D2) [Vitamin D2] 1 tab PO DAILY 05/04/20 [History] Past Medical History HEENT History: Reports: Impaired Vision, Other (See Below) Other HEENT History: wears glasses, has upper partial Cardiovascular History: Reports: None Respiratory History: Reports: None, Pneumonia, Recurrent Gastrointestinal History: Reports: GERD, Other (See Below) 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 History: Reports: Renal Calculus Other 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 History: passed kidney stones in the past 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: Musculoskeletal History: Reports: Back Pain, Chronic, Osteoarthritis, Other (See Below) Neurological History: Reports: Migraines Other Neuro History: degenerative disc disease Psychiatric History: Reports: Anxiety, Depression Endocrine/Metabolic History: Reports: None Hematologic History: Reports: None Immunologic History: Reports: None Oncologic (Cancer) History: Reports: None Dermatologic History: Reports: None - Infectious Disease History Infectious Disease History: Reports: None - Past Surgical History Head Surgeries/Procedures: Reports: None HEENT Surgical History: Reports: None Cardiovascular Surgical History: Reports: None Respiratory Surgical History: Reports: None GI Surgical History: Reports: Appendectomy, Cholecystectomy, Colonoscopy, EGD, Hernia, Inguinal Other GI Surgeries/Procedures: Hiatal hernia Female Surgical History: Reports: Hysterectomy, Salpingo-Oophorectomy, Other (See Below) Other Female Surgeries/Procedures: gynecologic laparoscopies Endocrine Surgical History: Reports: None Neurological Surgical History: Reports: None Musculoskeletal Surgical History: Reports: Arthroscopic Knee Oncologic Surgical History: Reports: None Dermatological Surgical History: Reports: None Social & Family History - Family History Family Medical History: No Pertinent Family History Cardiac: Reports: [place] Other Cardiac Family History: grandmother - Caffeine Use Caffeine Use: Reports: Coffee, Tea Caffeine Use Comment: 1 cup of coffee in the morning and drinks herbal tea - Living Situation & Occupation Occupation: Employed ED ROS GENERAL - Review of Systems Review Of Systems: See Below (0000) ED EXAM, GENERAL - Physical Exam Exam: See Below (0000) #1 Interpretation EKG Interpretation Comments: Heart rate = 64 bpm, normal sinus rhythm, normal QRS interval, no STEMI. EKG and rhythm strip interpreted by me at 0932 Course - Vital Signs Last Recorded V/S: Last Vital Signs Temp 96.6 F L 05/04/20 09:44 Pulse 69 05/04/20 09:44 Resp 17 05/04/20 09:44 BP 126/72 05/04/20 10:09 Pulse Ox 97 05/04/20 09:44 - Orders/Labs/Meds Orders: Active Orders 24 hr Category Date Time Status Admission Status [Patient Status] [ADT] Stat ADT 05/04/20 11:12 Active Cardiac Monitoring [RC] . DIRECTED Care 05/04/20 09:30 Active EKG Documentation Completion [RC] STAT Care 05/04/20 09:30 Active Pulse Oximetry [RC] ASDIRECTED Care 05/04/20 09:30 Active Nitroglycerin [Nitrostat] Med 05/04/20 10:00 Active 0.4 mg SL Q5M PRN Sodium Chloride 0.9% [Saline Flush] Med 05/04/20 09:30 Active 10 ml FLUSH ASDIRECTED PRN Sodium Chloride 0.9% [Saline Flush] Med 05/04/20 09:30 Active 2.5 ml FLUSH ASDIRECTED PRN Saline Lock Insert [OM.PC] Stat Oth 05/04/20 09:30 Ordered Medication Orders Nitroglycerin (Nitrostat) 0.4 mg SL Q5M PRN PRN Reason: Chest Pain Last Admin: 05/04/20 10:09 Dose: 0.4 mg Documented by: PAUL Sodium Chloride (Saline Flush) 10 ml FLUSH ASDIRECTED PRN PRN Reason: Keep Vein Open Last Admin: 05/04/20 10:32 Dose: 10 ml Documented by: PAUL Sodium Chloride (Saline Flush) 2.5 ml FLUSH ASDIRECTED PRN PRN Reason: Keep Vein Open Last Admin: 05/04/20 10:31 Dose: 2.5 ml Documented by: PAUL Labs: Laboratory Tests 05/04/20 05/04/20 05/04/20 Range/Units 09:42 09:42 09:42 WBC 6.80 (4.0-11.0) K/uL RBC 5.05 (4.30-5.90) M/uL Hgb 14.4 (12.0-16.0) g/dL Hct 43.9 (36.0-46.0) % MCV 86.9 (80.0-98.0) fL MCH 28.5 (27.0-32.0) pg MCHC 32.8 (31.0-37.0) g/dL RDW Std Deviation 41.8 (28.0-62.0) fl RDW Coeff of Missy 13 (11.0-15.0) % Plt Count 382 (150-400) K/uL MPV 9.70 (7.40-12.00) fL Neut % (Auto) 60.2 (48.0-80.0) % Lymph % (Auto) 29.9 (16.0-40.0) % [place] % (Auto) 7.1 (0.0-15.0) % Eos % (Auto) 1.6 (0.0-7.0) % Baso % (Auto) 1.2 (0.0-1.5) % Neut # (Auto) 4.1 (1.4-5.7) K/uL Lymph # (Auto) 2.0 (0.6-2.4) K/uL [place] # (Auto) 0.5 (0.0-0.8) K/uL Eos # (Auto) 0.1 (0.0-0.7) K/uL Baso # (Auto) 0.1 (0.0-0.1) K/uL Nucleated RBC % 0.0 /100WBC Nucleated RBCs # 0 K/uL Sodium 140 (136-145) mmol/L Potassium 4.3 (3.5-5.1) mmol/L Chloride 106 (98-107) mmol/L Carbon Dioxide 24.2 (21.0-32.0) mmol/L BUN 18 (7.0-18.0) mg/dL Creatinine 0.9 (0.6-1.0) mg/dL Est Cr Clr Drug Dosing 66.12 mL/min Estimated GFR (MDRD) > 60.0 ml/min Glucose 118 H (74-106) mg/dL Calcium 9.5 (8.5-10.1) mg/dL Total Bilirubin 0.2 (0.2-1.0) mg/dL AST 12 L (15-37) IU/L ALT 19 (14-63) IU/L Alkaline Phosphatase 80 (46-116) U/L Troponin I < 0.050 (0.000-0.056) ng/mL B-Natriuretic Peptide 11 (<100) PG/ML Total Protein 7.7 (6.4-8.2) g/dL Albumin 3.9 (3.4-5.0) g/dL Globulin 3.8 (2.6-4.0) g/dL Albumin/Globulin Ratio 1.0 (0.9-1.6) Lipase 957 H (73-393) U/L Meds: Medications Generic Name Dose Route Start Last Admin Trade Name Freq PRN Reason Stop Dose Admin Nitroglycerin 0.4 mg 05/04/20 10:00 05/04/20 10:09 Nitrostat SL 0.4 mg Q5M PRN Administration Chest Pain Sodium Chloride 10 ml 05/04/20 09:30 05/04/20 10:32 Saline Flush FLUSH 10 ml ASDIRECTED PRN Administration Keep Vein Open Sodium Chloride 2.5 ml 05/04/20 09:30 05/04/20 10:31 Saline Flush FLUSH 2.5 ml ASDIRECTED PRN Administration Keep Vein Open Discontinued Medications Generic Name Dose Route Start Last Admin Trade Name Freq PRN Reason Stop Dose Admin Diphenhydramine HCl 50 mg 05/04/20 10:07 05/04/20 10:17 Benadryl IVPUSH 05/04/20 10:08 50 mg ONETIME ONE Administration Pantoprazole Sodium 40 mg/ 20 mls @ 420 mls/hr 05/04/20 10:06 05/04/20 10:17 Sodium Chloride IVPUSH 05/04/20 10:08 420 mls/hr ONETIME ONE Administration Lactated Ringer's 1,000 mls @ 999 mls/hr 05/04/20 10:07 05/04/20 10:10 Ringers, Lactated IV 05/04/20 11:07 999 mls/hr .BOLUS ONE Administration Metoclopramide HCl 10 mg 05/04/20 10:07 05/04/20 10:17 Reglan IVPUSH 05/04/20 10:08 10 mg ONETIME ONE Administration - Re-Assessments/Exams Free Text/Narrative Re-Assessment/Exam: 05/04/20 11:19 Patient received 1 sublingual nitroglycerin with no improvement, she states the nitroglycerin made her headache worse and she is declining additional nitro glycerin. Case discussed with Dr. Neff, who agrees to admit patient. The hospitalist's documentation supersedes all other documentation on this patient with regard to any conflicts or discrepancies from this point forward. Any emergency conditions have been treated to the ability of the ED prior to admission. MDM: Patient is being admitted for pancreatitis, will undergo cardiac assessment to rule out ACS during hospitalization. Departure - Departure Time of Disposition: 11:20 Disposition: Admitted As Inpatient 66 Condition: Good Clinical Impression: Chest pain, rule out acute myocardial infarction, Pancreatitis Referrals: Sarahy Sifuentes MD [Primary Care Provider] - Sepsis Event Note (ED) - Focused Exam Vital Signs: Vital Signs Temp Pulse Resp BP BP Pulse Ox 05/04/20 10:09 126/72 05/04/20 09:44 96.6 F L 69 17 159/61 H 97 - My Orders Last 24 Hours: My Active Orders 05/04/20 09:30 Cardiac Monitoring [RC] . DIRECTED EKG Documentation Completion [RC] STAT Pulse Oximetry [RC] ASDIRECTED Sodium Chloride 0.9% [Saline Flush] 10 ml FLUSH ASDIRECTED PRN Sodium Chloride 0.9% [Saline Flush] 2.5 ml FLUSH ASDIRECTED PRN Saline Lock Insert [OM.PC] Stat 05/04/20 10:00 Nitroglycerin [Nitrostat] 0.4 mg SL Q5M PRN 05/04/20 11:12 Admission Status [Patient Status] [ADT] Stat - Assessment/Plan Last 24 Hours: My Active Orders 05/04/20 09:30 Cardiac Monitoring [RC] . DIRECTED EKG Documentation Completion [RC] STAT Pulse Oximetry [RC] ASDIRECTED Sodium Chloride 0.9% [Saline Flush] 10 ml FLUSH ASDIRECTED PRN Sodium Chloride 0.9% [Saline Flush] 2.5 ml FLUSH ASDIRECTED PRN Saline Lock Insert [OM.PC] Stat 05/04/20 10:00 Nitroglycerin [Nitrostat] 0.4 mg SL Q5M PRN 05/04/20 11:12 Admission Status [Patient Status] [ADT] Stat
[2020-05-04] MEDS ORDERED: Nitroglycerin 0.4 MG Tab.SL SL PRN (10:00)
[2020-05-04] MEDS ORDERED: Pantoprazole 40 MG in Sodium Chloride 0.9% 20 ML IVPUSH ONE (10:06)
[2020-05-04] MEDS ORDERED: Lactated Ringers 1,000 ML IV ONE ×3 (10:07→15:30)
[2020-05-04] MEDS ORDERED: diphenhydrAMINE 50 MG/ML SDV IVPUSH ONE (10:07)
[2020-05-04] MEDS ORDERED: Metoclopramide 10 MG/2 ML SDV IVPUSH ONE (10:07)
--- NOTE | 2020-05-04 10:21 | CR ---
INDICATION: Chest pain COMPARISON: November 18, 2018 TECHNIQUE: Single-view chest radiograph FINDINGS: TUBES AND LINES: None. HEART AND MEDIASTINUM: The heart size is normal. The mediastinal contour appears normal for patient age. LUNGS AND PLEURAL SPACES: Hyperinflation which may be related to COPD. This should only be considered in the appropriate clinical setting. No acute focal findings. Right upper lobe granuloma.The pleural spaces are unremarkable. OSSEOUS STRUCTURES: Age-appropriate appearance. No acute focal finding. IMPRESSION: Hyperinflated lungs. No acute focal finding. Dictated by Mor Tolbert MD @ May 04 2020 10:18AM Signed by Dr. Mor Tolbert @ May 04 2020 10:21AM
[2020-05-04 10:23] LABS: BLOOD UREA NITROGEN,BUN 18 mg/dL (7.0-18.0); CARBON DIOXIDE,CO2 24.2 mmol/L (21.0-32.0); CHLORIDE,CL 106 mmol/L (98-107); GLUCOSE RANDOM 118 mg/dL (74-106); LIPASE 957 U/L (73-393); POTASSIUM,K 4.3 mmol/L (3.5-5.1); SODIUM,NA 140 mmol/L (136-145)
[2020-05-04] MEDS ORDERED: Morphine 4 MG/ML Syringe IVPUSH ONE (11:24)
[2020-05-04 13:00] LABS: HEMOGLOBIN A1C 5.6 %
[2020-05-04] MEDS ORDERED: Acetaminophen 325 MG Tab PO PRN (13:20)
--- NOTE | 2020-05-04 13:45 | PCM.HP.2 ---
H&P History of Present Illness - General Date of Service: 05/04/20 Admit Problem/Dx: Admission Diagnosis/Problem Admission Diagnosis/Problem Chest pain Source of Information: Patient History Limitations: Reports: No Limitations - History of Present Illness Initial Comments - Free Text/Narative: This 54-year-old female with past medical history of GERD, Lopez's esophagus, migraine headaches presented to the ER today with complaints of headache and chest pressure. She reports she has had a headache with nausea and vomiting and she took some Imitrex which then proceeded to cause her chest pressure and chest pain. Patient reports she initially started feeling ill yesterday morning when she woke up with migraine headache. She felt very tired and blah and was not able to pinpoint why she did not feel well. This morning she woke up and continued to feel generalized malaise and fatigue with continued migraine headache. She reports she pushed this out of her mind and decided she should try to go to work. 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 She took an Imitrex to help with migraine and continued to have chest pressure. She reports that in the ER she did get pain medication which helped migraine as well as chest pressure but afterwards the pain has now localized more in her epigastric region, and reports now that she can tell the pain is more located in this region more than her chest. She denies any heartburn. Denies any palpitations. Denies any shortness of breath currently. She denies any lower abdominal pain. She reports a history of cholecystectomy secondary to cholelithiasis. She also reports history of renal stones. She said a couple weeks ago she did feel as though she had a kidney stone and then a couple days later the pain had passed. She denies any dysuria or bloody urine. She denies any diarrhea or constipation. She denies any focal neurological deficits. She denies any history of CAD or DM type II. She denies any current tobacco use reporting she quit 5 or 6 years ago. Denies any recreational drug use and no frequent alcohol use anymore. In the ER no leukocytosis noted WBC 6.80, hemoglobin 14.4, hematocrit 43.9. Sodium 140 potassium 4.3. BUN is 18 creatinine 0.9 bili 0.2 AST 12 ALT 19 alk phos 80 troponin was negative lipase elevated at 957 chest x-ray negative for any acute cardiopulmonary process. EKG sinus rhythm rates in the 60s with no ST or T wave changes. She was treated with 1 L IV fluids. She was given nitro which made headache worse in the ER. And refused any further dosing of this. She was then given morphine along with Benadryl and Reglan for headache. She will be admitted for acute pancreatitis. Chest Pain Score (Numeric/FACES): 7 - Related Data Allergies/Adverse Reactions: Allergies Allergy/AdvReac Type Severity Reaction Status Date / Time adhesive tape Allergy Rash Verified 05/04/20 09:44 Home Medications: Home Meds Ergocalciferol (Vitamin D2) [Vitamin D2] 1.25 mg PO WEEKLY 05/04/20 [History] Pantoprazole [ProTONIX] 40 mg PO DAILY 05/04/20 [History] methocarbamoL [Methocarbamol] 750 mg PO TID PRN 05/04/20 [History] Past Medical History HEENT History: Reports: Impaired Vision, Other (See Below) Other HEENT History: wears glasses, has upper partial Cardiovascular History: Reports: None Respiratory History: Reports: None, Pneumonia, Recurrent Gastrointestinal History: Reports: GERD, Other (See Below) 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 History: Reports: Renal Calculus Other 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 History: passed kidney stones in the past [employer] History: Reports: Musculoskeletal History: Reports: Back Pain, Chronic, Osteoarthritis, Other (See Below) Neurological History: Reports: Migraines Other Neuro History: degenerative disc disease Psychiatric History: Reports: Anxiety, Depression Endocrine/Metabolic History: Reports: None Hematologic History: Reports: None Immunologic History: Reports: None Oncologic (Cancer) History: Reports: None Dermatologic History: Reports: None - Infectious Disease History Infectious Disease History: Reports: None - Past Surgical History Head Surgeries/Procedures: Reports: None HEENT Surgical History: Reports: None Cardiovascular Surgical History: Reports: None Respiratory Surgical History: Reports: None GI Surgical History: Reports: Appendectomy, Cholecystectomy, Colonoscopy, EGD, Hernia, Inguinal Other GI Surgeries/Procedures: Hiatal hernia Female Surgical History: Reports: Hysterectomy, Salpingo-Oophorectomy, Other (See Below) Other Female Surgeries/Procedures: gynecologic laparoscopies Endocrine Surgical History: Reports: None Neurological Surgical History: Reports: None Musculoskeletal Surgical History: Reports: Arthroscopic Knee Oncologic Surgical History: Reports: None Dermatological Surgical History: Reports: None Social & Family History - Family History Family Medical History: No Pertinent Family History Cardiac: Reports: NM Other Cardiac Family History: grandmother - Tobacco Use Tobacco Use Status *Q: Unknown Ever Used Tobacco - Caffeine Use Caffeine Use: Reports: Coffee, Tea Caffeine Use Comment: 1 cup of coffee in the morning and drinks herbal tea - Living Situation & Occupation Occupation: Employed H&P Review of Systems - Review of Systems: Review Of Systems: See Below General: Reports: Malaise, Weakness (generalized), Fatigue. Denies: Fever, Chills HEENT: Reports: Headaches. Denies: Sinus Congestion, Vertigo Pulmonary: Reports: No Symptoms. Denies: Shortness of Breath Cardiovascular: Reports: No Symptoms. Denies: Chest Pain Gastrointestinal: Reports: Abdominal Pain (epigastric region), Nausea. Denies: Constipation, Diarrhea, Vomiting 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: Reports: No Symptoms. Denies: Dysuria, Frequency, Burning Musculoskeletal: Reports: No Symptoms. Denies: Neck Pain Skin: Reports: No Symptoms Psychiatric: Reports: No Symptoms Neurological: Reports: No Symptoms Hematologic/Lymphatic: Reports: No Symptoms Immunologic: Reports: No Symptoms Exam - Exam Exam: See Below - Vital Signs Vital Signs: Last Vital Signs Temp 96.6 F L 05/04/20 09:44 Pulse 57 L 05/04/20 11:34 Resp 17 05/04/20 09:44 BP 119/76 05/04/20 11:34 Pulse Ox 98 05/04/20 11:34 Weight: 68.039 kg - Exam Quality Assessment: DVT Prophylaxis General: Alert, Oriented, Cooperative HEENT: Conjunctiva Clear, Posterior Pharynx Clear. No: Mucosa Moist & [place] (dry) Neck: Supple, Trachea Midline Lungs: Clear to Auscultation, Normal Respiratory Effort Cardiovascular: Regular Rate, Regular Rhythm, Normal S1, Normal S2 GI/Abdominal Exam: Normal Bowel Sounds, Soft, No Distention, No Mass, Tender (epigastric mainly, slight diffuse tenderness throughout abdominal ), Hepatomegaly Back Exam: Normal Inspection, Full Range of Motion Extremities: Normal Inspection, Normal Range of Motion, Non-Tender, No Pedal Edema Neuro Extensive - Mental Status: Alert, Oriented x3 Neuro Extensive - Motor, Sensory, Reflexes: CN II-XII Intact Psychiatric: Alert, Normal Affect, Normal Mood - Patient Data Lab Results Last 24 hrs: Laboratory Results - last 24 hr 05/04/20 05/04/20 05/04/20 Range/Units 09:42 09:42 09:42 WBC 6.80 (4.0-11.0) K/uL RBC 5.05 (4.30-5.90) M/uL Hgb 14.4 (12.0-16.0) g/dL Hct 43.9 (36.0-46.0) % MCV 86.9 (80.0-98.0) fL MCH 28.5 (27.0-32.0) pg MCHC 32.8 (31.0-37.0) g/dL RDW Std Deviation 41.8 (28.0-62.0) fl RDW Coeff of Missy 13 (11.0-15.0) % Plt Count 382 (150-400) K/uL MPV 9.70 (7.40-12.00) fL Neut % (Auto) 60.2 (48.0-80.0) % Lymph % (Auto) 29.9 (16.0-40.0) % Mitchell % (Auto) 7.1 (0.0-15.0) % Eos % (Auto) 1.6 (0.0-7.0) % Baso % (Auto) 1.2 (0.0-1.5) % Neut # (Auto) 4.1 (1.4-5.7) K/uL Lymph # (Auto) 2.0 (0.6-2.4) K/uL Mitchell # (Auto) 0.5 (0.0-0.8) K/uL Eos # (Auto) 0.1 (0.0-0.7) K/uL Baso # (Auto) 0.1 (0.0-0.1) K/uL Nucleated RBC % 0.0 /100WBC Nucleated RBCs # 0 K/uL Sodium 140 (136-145) mmol/L Potassium 4.3 (3.5-5.1) mmol/L Chloride 106 (98-107) mmol/L Carbon Dioxide 24.2 (21.0-32.0) mmol/L BUN 18 (7.0-18.0) mg/dL Creatinine 0.9 (0.6-1.0) mg/dL Est Cr Clr Drug Dosing 66.12 mL/min Estimated GFR (MDRD) > 60.0 ml/min Glucose 118 H (74-106) mg/dL Hemoglobin A1c (4.5 - 6.2) % Calcium 9.5 (8.5-10.1) mg/dL Total Bilirubin 0.2 (0.2-1.0) mg/dL AST 12 L (15-37) IU/L ALT 19 (14-63) IU/L Alkaline Phosphatase 80 (46-116) U/L Troponin I < 0.050 (0.000-0.056) ng/mL B-Natriuretic Peptide 11 (<100) PG/ML Total Protein 7.7 (6.4-8.2) g/dL Albumin 3.9 (3.4-5.0) g/dL Globulin 3.8 (2.6-4.0) g/dL Albumin/Globulin Ratio 1.0 (0.9-1.6) Triglycerides (0-200) mg/dL Cholesterol (50-200) mg/dL LDL Cholesterol, Calc (60-180) mg/dL VLDL Cholesterol (5-55) mg/dL HDL Cholesterol (40-60) mg/dL Cholesterol/HDL Ratio (3.3-6.0) Lipase 957 H (73-393) U/L TSH 3rd Generation (0.36-3.74) uIU/mL SARS-CoV-2 RNA (YVETTE) (NEGATIVE) 05/04/20 05/04/20 05/04/20 Range/Units 09:42 12:00 12:20 WBC (4.0-11.0) K/uL RBC (4.30-5.90) M/uL Hgb (12.0-16.0) g/dL Hct (36.0-46.0) % MCV (80.0-98.0) fL MCH (27.0-32.0) pg MCHC (31.0-37.0) g/dL RDW Std Deviation (28.0-62.0) fl RDW Coeff of Missy (11.0-15.0) % Plt Count (150-400) K/uL MPV (7.40-12.00) fL Neut % (Auto) (48.0-80.0) % Lymph % (Auto) (16.0-40.0) % Mitchell % (Auto) (0.0-15.0) % Eos % (Auto) (0.0-7.0) % Baso % (Auto) (0.0-1.5) % Neut # (Auto) (1.4-5.7) K/uL Lymph # (Auto) (0.6-2.4) K/uL Mitchell # (Auto) (0.0-0.8) K/uL Eos # (Auto) (0.0-0.7) K/uL Baso # (Auto) (0.0-0.1) K/uL Nucleated RBC % /100WBC Nucleated RBCs # K/uL Sodium (136-145) mmol/L Potassium (3.5-5.1) mmol/L Chloride (98-107) mmol/L Carbon Dioxide (21.0-32.0) mmol/L BUN (7.0-18.0) mg/dL Creatinine (0.6-1.0) mg/dL Est Cr Clr Drug Dosing mL/min Estimated GFR (MDRD) ml/min Glucose (74-106) mg/dL Hemoglobin A1c 5.6 (4.5 - 6.2) % Calcium (8.5-10.1) mg/dL Total Bilirubin (0.2-1.0) mg/dL AST (15-37) IU/L ALT (14-63) IU/L Alkaline Phosphatase (46-116) U/L Troponin I (0.000-0.056) ng/mL B-Natriuretic Peptide (<100) PG/ML Total Protein (6.4-8.2) g/dL Albumin (3.4-5.0) g/dL Globulin (2.6-4.0) g/dL Albumin/Globulin Ratio (0.9-1.6) Triglycerides 116 (0-200) mg/dL Cholesterol 219 H (50-200) mg/dL LDL Cholesterol, Calc 146 (60-180) mg/dL VLDL Cholesterol 23 (5-55) mg/dL HDL Cholesterol 50 (40-60) mg/dL Cholesterol/HDL Ratio 4.4 (3.3-6.0) Lipase (73-393) U/L TSH 3rd Generation 2.41 (0.36-3.74) uIU/mL SARS-CoV-2 RNA (YVETTE) NEGATIVE (NEGATIVE) Result Diagrams: 05/04/20 09:42 05/04/20 09:42 Sepsis Event Note - Evaluation Sepsis Screening Result: No Definite Risk - Focused Exam Vital Signs: Vital Signs Temp Pulse Resp BP BP Pulse Ox 05/04/20 11:34 57 L 119/76 98 05/04/20 11:02 61 126/76 98 05/04/20 10:33 74 135/78 97 05/04/20 10:09 126/72 05/04/20 09:44 96.6 F L 69 17 159/61 H 97 - Problem List (1) Pancreatitis SNOMED Code(s): 38323156 ICD Code: K85.90 - ACUTE PANCREATITIS WITHOUT NECROSIS OR INFECTION, UNSP Status: Acute Current Visit: Yes Qualifiers: Chronicity: acute Pancreatitis type: unspecified pancreatitis type Acute pancreatitis complication: no infection or necrosis Qualified Code(s): K85.90 - Acute pancreatitis without necrosis or infection, unspecified (2) GERD (gastroesophageal reflux disease) SNOMED Code(s): 466483152 ICD Code: K21.9 - GASTRO-ESOPHAGEAL REFLUX DISEASE WITHOUT ESOPHAGITIS Status: Chronic Current Visit: Yes (3) Barretts esophagus SNOMED Code(s): 777688112 ICD Code: K22.70 - LOPEZ'S ESOPHAGUS WITHOUT DYSPLASIA Status: Chronic Current Visit: Yes (4) Migraine headache SNOMED Code(s): 09912773 ICD Code: G43.909 - MIGRAINE, UNSP, NOT INTRACTABLE, WITHOUT STATUS MIGRAINOSUS Status: Chronic Current Visit: Yes Problem List Initiated/Reviewed/Updated: Yes Orders Last 24hrs: Active Orders 24 hr Category Date Time Status Admission Status [Patient Status] [ADT] Stat ADT 05/04/20 11:12 Active Intake and Output [RC] QSHIFT Care 05/04/20 13:21 Active Oxygen Therapy [RC] PRN Care 05/04/20 13:21 Active Telemetry Monitoring [Cardiac Monitoring] [RC] . Care 05/04/20 12:27 Active DIRECTED Up With Assistance [RC] ASDIRECTED Care 05/04/20 13:20 Active VTE/DVT Education [RC] PER UNIT ROUTINE Care 05/04/20 13:21 Active Vital Signs [RC] Q4H Care 05/04/20 13:21 Active Nothing Per Oral Diet [DIET] Diet 05/04/20 Dinner Active Abdomen Comp [US] Urgent Exams 05/04/20 12:36 Ordered CBC WITH AUTO DIFF [HEME] AM Lab 05/05/20 05:11 Ordered CBC WITH AUTO DIFF [HEME] AM Lab 05/06/20 05:11 Ordered CBC WITH AUTO DIFF [HEME] AM Lab 05/07/20 05:11 Ordered CBC WITH AUTO DIFF [HEME] AM Lab 05/08/20 05:11 Ordered CBC WITH AUTO DIFF [HEME] AM Lab 05/09/20 05:11 Ordered COMPREHENSIVE METABOLIC PN,CMP [CHEM] AM Lab 05/05/20 05:11 Ordered COMPREHENSIVE METABOLIC PN,CMP [CHEM] AM Lab 05/06/20 05:11 Ordered COMPREHENSIVE METABOLIC PN,CMP [CHEM] AM Lab 05/07/20 05:11 Ordered COMPREHENSIVE METABOLIC PN,CMP [CHEM] AM Lab 05/08/20 05:11 Ordered COMPREHENSIVE METABOLIC PN,CMP [CHEM] AM Lab 05/09/20 05:11 Ordered MAGNESIUM [CHEM] AM Lab 05/05/20 05:11 Ordered MAGNESIUM [CHEM] AM Lab 05/06/20 05:11 Ordered MAGNESIUM [CHEM] AM Lab 05/07/20 05:11 Ordered MAGNESIUM [CHEM] AM Lab 05/08/20 05:11 Ordered MAGNESIUM [CHEM] AM Lab 05/09/20 05:11 Ordered PHOSPHORUS [CHEM] AM Lab 05/05/20 05:11 Ordered PHOSPHORUS [CHEM] AM Lab 05/06/20 05:11 Ordered PHOSPHORUS [CHEM] AM Lab 05/07/20 05:11 Ordered PHOSPHORUS [CHEM] AM Lab 05/08/20 05:11 Ordered PHOSPHORUS [CHEM] AM Lab 05/09/20 05:11 Ordered Acetaminophen [TylenoL] Med 05/04/20 13:20 Ordered 650 mg PO Q4H PRN Enoxaparin [Lovenox] Med 05/04/20 13:30 Ordered 40 mg SUBCUT Q24H Lactated Ringers [Ringers, Lactated] 1,000 ml Med 05/04/20 13:25 Ordered IV .BOLUS Lactated Ringers [Ringers, Lactated] 1,000 ml Med 05/04/20 13:30 Ordered IV Q6H Morphine Med 05/04/20 13:20 Ordered 3 mg IVPUSH Q2H PRN Ondansetron [Zofran] Med 05/04/20 13:22 Ordered 4 mg IVPUSH Q4H PRN Pantoprazole [ProTONIX IV] Med 05/05/20 09:00 Ordered 40 mg IV Q24H Sodium Chloride 0.9% [Saline Flush] Med 05/04/20 13:20 Ordered 2.5 ml FLUSH ASDIRECTED PRN Saline Lock Insert [OM.PC] Routine Oth 05/04/20 13:20 Ordered Resuscitation Status Routine Resus Stat 05/04/20 13:20 Ordered Medication Orders Acetaminophen (Tylenol) 650 mg PO Q4H PRN PRN Reason: Pain (Mild 1-3)/fever Enoxaparin Sodium (Lovenox) 40 mg SUBCUT Q24H ARETHA Lactated Ringer's (Ringers, Lactated) 1,000 mls @ 150 mls/hr IV Q6H ARETHA Lactated Ringer's (Ringers, Lactated) 1,000 mls @ 999 mls/hr IV .BOLUS ONE Stop: 05/04/20 14:25 Morphine Sulfate (Morphine) 3 mg IVPUSH Q2H PRN PRN Reason: Pain (severe 7-10) Ondansetron HCl (Zofran) 4 mg IVPUSH Q4H PRN PRN Reason: Nausea Pantoprazole Sodium (Protonix Iv) 40 mg IV Q24H ARETHA Sodium Chloride (Saline Flush) 2.5 ml FLUSH ASDIRECTED PRN PRN Reason: Keep Vein Open Assessment/Plan Comment:: This 54-year-old female admitted with acute pancreatitis and atypical chest pain 1. Acute pancreatitis -Continue n.p.o. bowel rest ice chips are okay -Give 2 l more LR bolus then continue LR fluids at 150 mL/h -History of reported cholelithiasis with cholecystectomy a few years ago. Has never had pancreatitis in the past. -Reports history of more significant alcohol use but has not used recently reports greater than 3 weeks since last drink and with that she drinks very infrequently. -Reports she initially had chest pain but after pain medication she realized the pain is more in her epigastric region that was spreading up likely secondary to pancreatitis. Suspicion -A1c 5.6 TSH 2.4 -Total cholesterol 219 LDL 146 HDL 50 triglycerides 119 -Repeat lipase in a.m. - abdominal US shows hepatic steatosis with hepatomegaly, no signs of bile duct dilation, or renal stones. Hold off on CT for now. 2. Migraine: -Reports she woke up yesterday with migraine and that is why she thought she felt bad and continue to feel poorly this morning -Reports headache is okay currently, will continue to monitor 3. GERD/Lopez's esophagus -Continue PPI -Monitor nausea and vomiting VTE prophylaxis: Lovenox GI prophylaxis: Protonix CODE STATUS: full code Dispo: 1 to 2 days - Mortality Measure Prognosis:: Good
[2020-05-04] MEDS: Morphine 4 MG/ML Syringe IVPUSH PRN ×4 (14:11→22:54)
[2020-05-04] MEDS: Enoxaparin 40 MG/0.4 ML Syringe SUBCUT SCH (14:30)
--- NOTE | 2020-05-04 14:39 | US ---
INDICATION: Abdominal pain elevated lipase TECHNIQUE: Ultrasound abdomen complete. Sonographic images of the entire abdomen were obtained using mendoza-scale and color Doppler. COMPARISON: July 11, 2017 FINDINGS: Liver: Mildly enlarged, measuring 17.3 cm. Increased echogenicity throughout the liver. No masses. No intrahepatic biliary dilatation. Gallbladder: Status post cholecystectomy. Common bile duct: 8 mm. Pancreas: No evidence for pancreatic edema. Spleen: Normal in size and appearance. Right kidney: 10.2 x 3.8 x 6.0 cm. Normal echotexture and cortex. No masses, stones, or hydronephrosis. Left kidney: 10.7 x 5.2 x 5.4 cm. Normal echotexture and cortex. No masses, stones, or hydronephrosis. Vasculature: Proximal abdominal aorta and IVC are normal in caliber. IMPRESSION: No acute intra-abdominal process identified. No evidence for pancreatic edema. Status post cholecystectomy. Mild hepatomegaly with hepatic steatosis. Dictated by Sandra Reeves MD @ May 04 2020 2:33PM Signed by Dr. Sandra Reeves @ May 04 2020 2:37PM
[2020-05-04] MEDS ORDERED: Methocarbamol 750 MG TAB PO PRN (16:32)
[2020-05-04] MEDS: Lactated Ringers 1,000 ML IV SCH ×2 (16:33→22:58)
[2020-05-04] MEDS: Ondansetron 4 MG/2 ML SDV IVPUSH PRN (22:57)
[2020-05-05] MEDS: Lactated Ringers 1,000 ML IV SCH ×3 (05:50→19:19)
[2020-05-05] MEDS: Ondansetron 4 MG/2 ML SDV IVPUSH PRN (05:54)
[2020-05-05] MEDS: Morphine 4 MG/ML Syringe IVPUSH PRN (05:57)
[2020-05-05 06:13] LABS: BLOOD UREA NITROGEN,BUN 10 mg/dL (7.0-18.0); CHLORIDE,CL 103 mmol/L (98-107); GLUCOSE RANDOM 99 mg/dL (74-106); LIPASE 99 U/L (73-393); SODIUM,NA 139 mmol/L (136-145)
[2020-05-05] MEDS ORDERED: diphenhydrAMINE 50 MG/ML SDV IVPUSH ONE (08:06)
[2020-05-05] MEDS ORDERED: Metoclopramide 10 MG/2 ML SDV IVPUSH ONE (08:06)
[2020-05-05] MEDS ORDERED: Ketorolac 30 MG/ML SDV IVPUSH ONE (08:06)
--- NOTE | 2020-05-05 08:07 | PCM.PN ---
- General Info Date of Service: 05/05/20 Admission Dx/Problem (Free Text): Admission Diagnosis/Problem Admission Diagnosis/Problem Chest pain Subjective Update: Reports this morning she is feeling very nauseated with migraine with light sensitivity and noise sensitivity. Reports neck is slightly sore but she feels it is from her pillow. She is able to move her neck freely with no nuchal rigidity. She denies any chest pain. She continues to report epigastric pain but this has improved somewhat. She reports she is passing gas. She is tolerating ice chips. She is up ambulating. Functional Status: Reports: Ambulating, Urinating. Denies: Pain Controlled (Significant for migraine this morning) - Review of Systems General: Reports: Fatigue, Malaise HEENT: Reports: Headaches (Migraine that seems all over with associated nausea photosensitivity and noise sensitivity) Pulmonary: Reports: No Symptoms. Denies: Shortness of Breath, Cough, Sputum Cardiovascular: Reports: No Symptoms. Denies: Chest Pain, Palpitations Gastrointestinal: Reports: Abdominal Pain (Epigastric has improved since but still there), Flatus, Nausea, Vomiting 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: Reports: No Symptoms. Denies: Dysuria, Frequency, Burning Musculoskeletal: Reports: No Symptoms Skin: Reports: No Symptoms Neurological: Reports: No Symptoms Psychiatric: Reports: No Symptoms - Patient Data Vitals - Most Recent: Last Vital Signs Temp 97.6 F 05/05/20 04:00 Pulse 62 05/05/20 04:00 Resp 18 05/05/20 04:00 BP 123/67 05/05/20 04:00 Pulse Ox 90 L 05/05/20 04:00 Weight - Most Recent: 69.445 kg I&O - Last 24 Hours: Intake & Output 05/04/20 05/05/20 05/05/20 22:59 06:59 14:59 Intake Total 3788 2439 Output Total 500 950 Balance 1520 829 Lab Results Last 24 Hours: Laboratory Results - last 24 hr 05/04/20 05/04/20 05/04/20 Range/Units 09:42 09:42 09:42 WBC 6.80 (4.0-11.0) K/uL RBC 5.05 (4.30-5.90) M/uL Hgb 14.4 (12.0-16.0) g/dL Hct 43.9 (36.0-46.0) % MCV 86.9 (80.0-98.0) fL MCH 28.5 (27.0-32.0) pg MCHC 32.8 (31.0-37.0) g/dL RDW Std Deviation 41.8 (28.0-62.0) fl RDW Coeff of Missy 13 (11.0-15.0) % Plt Count 382 (150-400) K/uL MPV 9.70 (7.40-12.00) fL Neut % (Auto) 60.2 (48.0-80.0) % Lymph % (Auto) 29.9 (16.0-40.0) % [place] % (Auto) 7.1 (0.0-15.0) % Eos % (Auto) 1.6 (0.0-7.0) % Baso % (Auto) 1.2 (0.0-1.5) % Neut # (Auto) 4.1 (1.4-5.7) K/uL Lymph # (Auto) 2.0 (0.6-2.4) K/uL [place] # (Auto) 0.5 (0.0-0.8) K/uL Eos # (Auto) 0.1 (0.0-0.7) K/uL Baso # (Auto) 0.1 (0.0-0.1) K/uL Nucleated RBC % 0.0 /100WBC Nucleated RBCs # 0 K/uL Sodium 140 (136-145) mmol/L Potassium 4.3 (3.5-5.1) mmol/L Chloride 106 (98-107) mmol/L Carbon Dioxide 24.2 (21.0-32.0) mmol/L BUN 18 (7.0-18.0) mg/dL Creatinine 0.9 (0.6-1.0) mg/dL Est Cr Clr Drug Dosing 66.12 mL/min Estimated GFR (MDRD) > 60.0 ml/min Glucose 118 H (74-106) mg/dL Hemoglobin A1c (4.5 - 6.2) % Calcium 9.5 (8.5-10.1) mg/dL Phosphorus (2.6-4.7) mg/dL Magnesium (1.8-2.4) mg/dL Total Bilirubin 0.2 (0.2-1.0) mg/dL AST 12 L (15-37) IU/L ALT 19 (14-63) IU/L Alkaline Phosphatase 80 (46-116) U/L Troponin I < 0.050 (0.000-0.056) ng/mL B-Natriuretic Peptide 11 (<100) PG/ML Total Protein 7.7 (6.4-8.2) g/dL Albumin 3.9 (3.4-5.0) g/dL Globulin 3.8 (2.6-4.0) g/dL Albumin/Globulin Ratio 1.0 (0.9-1.6) Triglycerides (0-200) mg/dL Cholesterol (50-200) mg/dL LDL Cholesterol, Calc (60-180) mg/dL VLDL Cholesterol (5-55) mg/dL HDL Cholesterol (40-60) mg/dL Cholesterol/HDL Ratio (3.3-6.0) Lipase 957 H (73-393) U/L TSH 3rd Generation (0.36-3.74) uIU/mL SARS-CoV-2 RNA (YVETTE) (NEGATIVE) 05/04/20 05/04/20 05/04/20 Range/Units 09:42 12:00 12:20 WBC (4.0-11.0) K/uL RBC (4.30-5.90) M/uL Hgb (12.0-16.0) g/dL Hct (36.0-46.0) % MCV (80.0-98.0) fL MCH (27.0-32.0) pg MCHC (31.0-37.0) g/dL RDW Std Deviation (28.0-62.0) fl RDW Coeff of Missy (11.0-15.0) % Plt Count (150-400) K/uL MPV (7.40-12.00) fL Neut % (Auto) (48.0-80.0) % Lymph % (Auto) (16.0-40.0) % [place] % (Auto) (0.0-15.0) % Eos % (Auto) (0.0-7.0) % Baso % (Auto) (0.0-1.5) % Neut # (Auto) (1.4-5.7) K/uL Lymph # (Auto) (0.6-2.4) K/uL [place] # (Auto) (0.0-0.8) K/uL Eos # (Auto) (0.0-0.7) K/uL Baso # (Auto) (0.0-0.1) K/uL Nucleated RBC % /100WBC Nucleated RBCs # K/uL Sodium (136-145) mmol/L Potassium (3.5-5.1) mmol/L Chloride (98-107) mmol/L Carbon Dioxide (21.0-32.0) mmol/L BUN (7.0-18.0) mg/dL Creatinine (0.6-1.0) mg/dL Est Cr Clr Drug Dosing mL/min Estimated GFR (MDRD) ml/min Glucose (74-106) mg/dL Hemoglobin A1c 5.6 (4.5 - 6.2) % Calcium (8.5-10.1) mg/dL Phosphorus (2.6-4.7) mg/dL Magnesium (1.8-2.4) mg/dL Total Bilirubin (0.2-1.0) mg/dL AST (15-37) IU/L ALT (14-63) IU/L Alkaline Phosphatase (46-116) U/L Troponin I (0.000-0.056) ng/mL B-Natriuretic Peptide (<100) PG/ML Total Protein (6.4-8.2) g/dL Albumin (3.4-5.0) g/dL Globulin (2.6-4.0) g/dL Albumin/Globulin Ratio (0.9-1.6) Triglycerides 116 (0-200) mg/dL Cholesterol 219 H (50-200) mg/dL LDL Cholesterol, Calc 146 (60-180) mg/dL VLDL Cholesterol 23 (5-55) mg/dL HDL Cholesterol 50 (40-60) mg/dL Cholesterol/HDL Ratio 4.4 (3.3-6.0) Lipase (73-393) U/L TSH 3rd Generation 2.41 (0.36-3.74) uIU/mL SARS-CoV-2 RNA (YVETTE) NEGATIVE (NEGATIVE) 05/05/20 05/05/20 Range/Units 05:40 05:40 WBC 5.94 (4.0-11.0) K/uL RBC 4.03 L (4.30-5.90) M/uL Hgb 11.6 L (12.0-16.0) g/dL Hct 35.2 L (36.0-46.0) % MCV 87.3 (80.0-98.0) fL MCH 28.8 (27.0-32.0) pg MCHC 33.0 (31.0-37.0) g/dL RDW Std Deviation 41.6 (28.0-62.0) fl RDW Coeff of Missy 13 (11.0-15.0) % Plt Count 282 (150-400) K/uL MPV 9.90 (7.40-12.00) fL Neut % (Auto) 58.9 (48.0-80.0) % Lymph % (Auto) 32.8 (16.0-40.0) % [place] % (Auto) 6.6 (0.0-15.0) % Eos % (Auto) 1.0 (0.0-7.0) % Baso % (Auto) 0.7 (0.0-1.5) % Neut # (Auto) 3.5 (1.4-5.7) K/uL Lymph # (Auto) 2.0 (0.6-2.4) K/uL [place] # (Auto) 0.4 (0.0-0.8) K/uL Eos # (Auto) 0.1 (0.0-0.7) K/uL Baso # (Auto) 0.0 (0.0-0.1) K/uL Nucleated RBC % 0.0 /100WBC Nucleated RBCs # 0 K/uL Sodium 139 (136-145) mmol/L Potassium 4.0 (3.5-5.1) mmol/L Chloride 103 (98-107) mmol/L Carbon Dioxide 26.0 (21.0-32.0) mmol/L BUN 10 (7.0-18.0) mg/dL Creatinine 0.8 (0.6-1.0) mg/dL Est Cr Clr Drug Dosing 77.27 mL/min Estimated GFR (MDRD) > 60.0 ml/min Glucose 99 (74-106) mg/dL Hemoglobin A1c (4.5 - 6.2) % Calcium 8.8 (8.5-10.1) mg/dL Phosphorus 4.5 (2.6-4.7) mg/dL Magnesium 1.8 (1.8-2.4) mg/dL Total Bilirubin 0.3 (0.2-1.0) mg/dL AST 62 H (15-37) IU/L ALT 77 H (14-63) IU/L Alkaline Phosphatase 63 (46-116) U/L Troponin I (0.000-0.056) ng/mL B-Natriuretic Peptide (<100) PG/ML Total Protein 5.7 L (6.4-8.2) g/dL Albumin 3.0 L (3.4-5.0) g/dL Globulin 2.7 (2.6-4.0) g/dL Albumin/Globulin Ratio 1.1 (0.9-1.6) Triglycerides (0-200) mg/dL Cholesterol (50-200) mg/dL LDL Cholesterol, Calc (60-180) mg/dL VLDL Cholesterol (5-55) mg/dL HDL Cholesterol (40-60) mg/dL Cholesterol/HDL Ratio (3.3-6.0) Lipase 99 (73-393) U/L TSH 3rd Generation (0.36-3.74) uIU/mL SARS-CoV-2 RNA (YVETTE) (NEGATIVE) Med Orders - Current: Current Medications Acetaminophen (Tylenol) 650 mg PO Q4H PRN PRN Reason: Pain (Mild 1-3)/fever Enoxaparin Sodium (Lovenox) 40 mg SUBCUT Q24H [facility] Last Admin: 05/04/20 14:30 Dose: 40 mg Documented by: Lactated Ringer's (Ringers, Lactated) 1,000 mls @ 150 mls/hr IV Q6H [facility] Last Admin: 05/05/20 05:50 Dose: 150 mls/hr Documented by: Pantoprazole Sodium 40 mg/ (Sodium Chloride) 10 mls @ 200 mls/hr IV Q24H [facility] Morphine Sulfate (Morphine) 3 mg IVPUSH Q2H PRN PRN Reason: Pain (severe 7-10) Last Admin: 05/05/20 05:57 Dose: 3 mg Documented by: Ondansetron HCl (Zofran) 4 mg IVPUSH Q4H PRN PRN Reason: Nausea Last Admin: 05/05/20 05:54 Dose: 4 mg Documented by: Methocarbamol 750 Mg (Tab) 1 each PO TID PRN PRN Reason: Spasms Sodium Chloride (Saline Flush) 2.5 ml FLUSH ASDIRECTED PRN PRN Reason: Keep Vein Open Discontinued Medications Diphenhydramine HCl (Benadryl) 50 mg IVPUSH ONETIME ONE Stop: 05/04/20 10:08 Last Admin: 05/04/20 10:17 Dose: 50 mg Documented by: Pantoprazole Sodium 40 mg/ (Sodium Chloride) 20 mls @ 420 mls/hr IVPUSH ONETIME ONE Stop: 05/04/20 10:08 Last Admin: 05/04/20 10:17 Dose: 420 mls/hr Documented by: Lactated Ringer's (Ringers, Lactated) 1,000 mls @ 999 mls/hr IV .BOLUS ONE Stop: 05/04/20 11:07 Last Admin: 05/04/20 10:10 Dose: 999 mls/hr Documented by: Lactated Ringer's (Ringers, Lactated) 1,000 mls @ 999 mls/hr IV .BOLUS ONE Stop: 05/04/20 15:30 Last Admin: 05/04/20 14:13 Dose: 999 mls/hr Documented by: Lactated Ringer's (Ringers, Lactated) 1,000 mls @ 999 mls/hr IV .BOLUS ONE Stop: 05/04/20 16:30 Last Admin: 05/04/20 15:25 Dose: 999 mls/hr Documented by: Metoclopramide HCl (Reglan) 10 mg IVPUSH ONETIME ONE Stop: 05/04/20 10:08 Last Admin: 05/04/20 10:17 Dose: 10 mg Documented by: Morphine Sulfate (Morphine) 4 mg IVPUSH ONETIME ONE Stop: 05/04/20 11:25 Last Admin: 05/04/20 11:49 Dose: 4 mg Documented by: Nitroglycerin (Nitrostat) 0.4 mg SL Q5M PRN PRN Reason: Chest Pain Last Admin: 05/04/20 10:09 Dose: 0.4 mg Documented by: Sodium Chloride (Saline Flush) 10 ml FLUSH ASDIRECTED PRN PRN Reason: Keep Vein Open Last Admin: 05/04/20 10:32 Dose: 10 ml Documented by: Sodium Chloride (Saline Flush) 2.5 ml FLUSH ASDIRECTED PRN PRN Reason: Keep Vein Open Last Admin: 05/04/20 10:31 Dose: 2.5 ml Documented by: - Exam Quality Assessment: DVT Prophylaxis. No: Supplemental Oxygen General: Alert, Oriented, Cooperative, Mild Distress (Does not want lie down as this worsens headache.) Lungs: Clear to Auscultation, Normal Respiratory Effort Cardiovascular: Regular Rate, Regular Rhythm, No Murmurs GI/Abdominal Exam: Normal Bowel Sounds, Soft, No Distention, Tender (Epigastric), Hepatomegaly Back Exam: Normal Inspection, Full Range of Motion Extremities: Normal Inspection, Normal Range of Motion, Non-Tender, No Pedal Edema Neurological: No New Focal Deficit Psy/Mental Status: Alert, Normal Affect, Normal Mood Sepsis Event Note - Evaluation Sepsis Screening Result: No Definite Risk - Focused Exam Vital Signs: Vital Signs Temp Pulse Resp BP Pulse Ox 05/05/20 04:00 97.6 F 62 18 123/67 90 L 05/05/20 00:00 97.8 F 56 L 18 183/94 H 96 - Problem List & Annotations (1) Pancreatitis SNOMED Code(s): 53508989 Code(s): K85.90 - ACUTE PANCREATITIS WITHOUT NECROSIS OR INFECTION, UNSP Status: Acute Current Visit: Yes Qualifiers: Chronicity: acute Pancreatitis type: unspecified pancreatitis type Acute pancreatitis complication: no infection or necrosis Qualified Code(s): K85.90 - Acute pancreatitis without necrosis or infection, unspecified (2) GERD (gastroesophageal reflux disease) SNOMED Code(s): 539549272 Code(s): K21.9 - GASTRO-ESOPHAGEAL REFLUX DISEASE WITHOUT ESOPHAGITIS Status: Chronic Current Visit: Yes (3) Barretts esophagus SNOMED Code(s): 908605831 Code(s): K22.70 - LOPEZ'S ESOPHAGUS WITHOUT DYSPLASIA Status: Chronic Current Visit: Yes (4) Migraine headache SNOMED Code(s): 21656646 Code(s): G43.909 - MIGRAINE, UNSP, NOT INTRACTABLE, WITHOUT STATUS MIGRAINOSUS Status: Chronic Current Visit: Yes - Problem List Review Problem List Initiated/Reviewed/Updated: Yes - My Orders Last 24 Hours: My Active Orders 05/04/20 12:27 Telemetry Monitoring [Cardiac Monitoring] [RC] Q8H 05/04/20 13:20 Up With Assistance [RC] ASDIRECTED Acetaminophen [TylenoL] 650 mg PO Q4H PRN Morphine 3 mg IVPUSH Q2H PRN Sodium Chloride 0.9% [Saline Flush] 2.5 ml FLUSH ASDIRECTED PRN Saline Lock Insert [OM.PC] Routine Resuscitation Status Routine 05/04/20 13:21 Intake and Output [RC] Q12H Oxygen Therapy [RC] PRN VTE/DVT Education [RC] PER UNIT ROUTINE Vital Signs [RC] Q4H 05/04/20 13:22 Ondansetron [Zofran] 4 mg IVPUSH Q4H PRN 05/04/20 14:30 Enoxaparin [Lovenox] 40 mg SUBCUT Q24H 05/04/20 Dinner Nothing Per Oral Diet [DIET] 05/04/20 16:30 Lactated Ringers [Ringers, Lactated] 1,000 ml IV Q6H 05/04/20 16:32 Patient's Own Medication [Ptom] 1 each PO TID PRN 05/05/20 08:06 Ketorolac [Toradol] 30 mg IVPUSH ONETIME ONE Metoclopramide [Reglan] 10 mg IVPUSH ONETIME ONE diphenhydrAMINE [Benadryl] 25 mg IVPUSH ONETIME ONE 05/05/20 09:00 Pantoprazole [ProTONIX IV] 40 mg Sodium Chloride 0.9% [Normal Saline] 10 ml IV Q24H 05/06/20 05:11 CBC WITH AUTO DIFF [HEME] AM COMPREHENSIVE METABOLIC PN,CMP [CHEM] AM MAGNESIUM [CHEM] AM PHOSPHORUS [CHEM] AM 05/07/20 05:11 CBC WITH AUTO DIFF [HEME] AM COMPREHENSIVE METABOLIC PN,CMP [CHEM] AM MAGNESIUM [CHEM] AM PHOSPHORUS [CHEM] AM 05/08/20 05:11 CBC WITH AUTO DIFF [HEME] AM COMPREHENSIVE METABOLIC PN,CMP [CHEM] AM MAGNESIUM [CHEM] AM PHOSPHORUS [CHEM] AM 05/09/20 05:11 CBC WITH AUTO DIFF [HEME] AM COMPREHENSIVE METABOLIC PN,CMP [CHEM] AM MAGNESIUM [CHEM] AM PHOSPHORUS [CHEM] AM - Plan Plan:: This 54-year-old female admitted with acute pancreatitis and atypical chest pain 1. Acute pancreatitis -Trial CL today -Continue LR fluids at 150 mL/h -Repeat lipase today 99 -abdominal US shows hepatic steatosis with hepatomegaly, no signs of bile duct dilation, or renal stones. Hold off on CT for now. -Slight bump in AST ALT will continue to monitor daily bilirubin remains normal. 2. Migraine: -Having migraine this morning with photophobia and phonophobia we will give cocktail of Reglan, Benadryl, Toradol and monitor symptoms. -She did have chest tightness with triptan use. Will encourage her not to use this until further work-up is completed. We will set up outpatient stress test. Troponin was negative we will add one this morning and has remained on telemetry with no changes. -Consider outpatient referral to neurology for migraine management. 3. GERD/Lopez's esophagus -Continue PPI -Monitor nausea and vomiting VTE prophylaxis: Lovenox GI prophylaxis: Protonix CODE STATUS: full code Dispo: 1 to 2 days
[2020-05-05] MEDS: Pantoprazole 40 MG in Sodium Chloride 0.9% 10 ML IV SCH (08:43)
[2020-05-05] MEDS ORDERED: Pantoprazole 40 MG Vial IV SCH (09:00)
[2020-05-05] MEDS: Enoxaparin 40 MG/0.4 ML Syringe SUBCUT SCH (14:53)
[2020-05-05] MEDS: Ketorolac 15 MG/ML SDV IVPUSH PRN ×2 (15:28→23:37)
[2020-05-06] MEDS: Lactated Ringers 1,000 ML IV SCH ×3 (01:52→08:53)
[2020-05-06 06:14] LABS: BLOOD UREA NITROGEN,BUN 5 mg/dL (7.0-18.0); CARBON DIOXIDE,CO2 25.7 mmol/L (21.0-32.0); CHLORIDE,CL 109 mmol/L (98-107); GLUCOSE RANDOM 95 mg/dL (74-106); POTASSIUM,K 3.6 mmol/L (3.5-5.1); SODIUM,NA 144 mmol/L (136-145)
[2020-05-06] MEDS: Ketorolac 15 MG/ML SDV IVPUSH PRN (07:44)
[2020-05-06] MEDS ORDERED: Magnesium Sulfate/Water 2 GM/50 ML BAG IV ONE (08:00)
[2020-05-06] MEDS: Pantoprazole 40 MG in Sodium Chloride 0.9% 10 ML IV SCH (10:17)
[2020-05-06 11:22] VITALS: BP 123/81; PULSE 66
[2020-05-06] MEDS: Enoxaparin 40 MG/0.4 ML Syringe SUBCUT SCH (14:54)
--- NOTE | 2020-05-06 15:00 | PCM.DCSUM1 ---
<Irma Tee M - Last Filed: 05/06/20 14:53> Discharge Summary - Hospital Course Brief History: This 54-year-old female with past medical history of GERD, Lopez's esophagus, migraine headaches presented to the ER today with complaints of headache and chest pressure. She reports she has had a headache with nausea and vomiting and she took some Imitrex which then proceeded to cause her chest pressure and chest pain. Patient reports she initially started feeling ill yesterday morning when she woke up with migraine headache. She felt very tired and blah and was not able to pinpoint why she did not feel well. This morning she woke up and continued to feel generalized malaise and fatigue with continued migraine headache. She reports she pushed this out of her mind and decided she should try to go to work. 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 She took an Imitrex to help with migraine and continued to have chest pressure. She reports that in the ER she did get pain medication which helped migraine as well as chest pressure but afterwards the pain has now localized more in her epigastric region, and reports now that she can tell the pain is more located in this region more than her chest. She denies any heartburn. Denies any palpitations. Denies any shortness of breath currently. She denies any lower abdominal pain. She reports a history of cholecystectomy secondary to cholelithiasis. She also reports history of renal stones. She said a couple weeks ago she did feel as though she had a kidney stone and then a couple days later the pain had passed. She denies any dysuria or bloody urine. She denies any diarrhea or constipation. She denies any focal neurological deficits. She denies any history of CAD or DM type II. She denies any current tobacco use reporting she quit 5 or 6 years ago. Denies any recreational drug use and no frequent alcohol use anymore. In the ER no leukocytosis noted WBC 6.80, hemoglobin 14.4, hematocrit 43.9. Sodium 140 potassium 4.3. BUN is 18 creatinine 0.9 bili 0.2 AST 12 ALT 19 alk phos 80 troponin was negative lipase elevated at 957 chest x-ray negative for any acute cardiopulmonary process. EKG sinus rhythm rates in the 60s with no ST or T wave changes. She was treated with 1 L IV fluids. She was given nitro which made headache worse in the ER. And refused any further dosing of this. She was then given morphine along with Benadryl and Reglan for headache. She will be admitted for acute pancreatitis. - Discharge Data Discharge Date: 05/06/20 Discharge Disposition: Home, Self-Care 01 Condition: Good - Referral to Home Health Primary Care Physician: Sarahy Sifuentes MD - Discharge Diagnosis/Problem(s) (1) Pancreatitis SNOMED Code(s): 96441330 ICD Code: K85.90 - ACUTE PANCREATITIS WITHOUT NECROSIS OR INFECTION, UNSP Status: Acute Qualifiers: Chronicity: acute Pancreatitis type: unspecified pancreatitis type Acute pancreatitis complication: no infection or necrosis Qualified Code(s): K85.90 - Acute pancreatitis without necrosis or infection, unspecified (2) GERD (gastroesophageal reflux disease) SNOMED Code(s): 886151678 ICD Code: K21.9 - GASTRO-ESOPHAGEAL REFLUX DISEASE WITHOUT ESOPHAGITIS Status: Chronic (3) Barretts esophagus SNOMED Code(s): 117554185 ICD Code: K22.70 - LOPEZ'S ESOPHAGUS WITHOUT DYSPLASIA Status: Chronic (4) Migraine headache SNOMED Code(s): 24696850 ICD Code: G43.909 - MIGRAINE, UNSP, NOT INTRACTABLE, WITHOUT STATUS MIGRAINOSUS Status: Chronic - Patient Summary/Data Hospital Course: Admission diagnoses Acute pancreatitis Migraine Chest pain Discharge diagnoses Acute pancreatitis Migraine resolved Chest pain resolved Hyperlipidemia Other PMH Migraine Sandra was admitted secondary to abdominal pain and chest pain along with nausea and vomiting. CT abdomen was obtained which did not show any significant findings. Lipase was elevated at 957. She was treated with IV fluids agg ressively for acute pancreatitis. Along with narcotics for pain control. Prior to admission she had noted to have a migraine with significant nausea and vomiting. She did take an Imitrex which she has a prescription for at home and had chest pain after administration of this. She reports that intermittently she does get chest pain with her Imitrex use. Troponins were monitored she was monitored on telemetry and ACS was ruled out. She was counseled on not using Imitrex anymore and we referred her to neurology for further management of migraines. She reports migraines are getting worse as she is a G. Reports where she have 1 or 2 every now and then she is reporting 1-3 every month and increasing the last 6 months. Part of the chest pain work-up we did obtain A1c which was within normal limits along with a lipid panel. Triglycerides not significantly elevated for cause of pancreatitis. LDL was elevated at 146 we did start a atorvastatin 10 mg p.o. along with aspirin 81 mg daily. She will have outpatient stress test to evaluate cardiac concerns with chest pain with triptan use. Regarding her pancreatitis. Lipase returned to normal day 2 of admission. Patient is not on any obvious medications that would cause pancreatitis. Triglycerides were normal. Right upper out quadrant ultrasound was obtained to rule out any biliary tract stones. She does have a history of cholecystectomy due to cholelithiasis. But right upper quadrant ultrasound was normal it did show hepatomegaly. She reports she did have a history of alcohol abuse but no longer uses. This could be a potential cause of pancreatitis along with potential gastroenteritis. She was started on clear liquid full liquid then subsequently regular diet which she tolerated well. Today she is feeling much improved and very eager for discharge home. She did tolerate a soft diet for lunch with no significant abdominal pain. She w was instructed to take ibuprofen and Tylenol for pain at home as she needs. She was counseled on new medications and diet. She should return to the ER or clinic sooner if concerns should arise. She has follow-up with PCP as well as Dr. Nichole, neurology. - Patient Instructions Diet: Heart Healthy Diet Activity: No Strenuous Activities Showering/Bathing: July Shower Notify Provider of: Fever, Increased Pain, Swelling and Redness, Drainage, Nausea and/or Vomiting Other/Special Instructions: Outpatient stress test. Do not take Imitrex anymore - Discharge Plan *PRESCRIPTION DRUG MONITORING PROGRAM REVIEWED*: Not Applicable *COPY OF PRESCRIPTION DRUG MONITORING REPORT IN PATIENT SAUL: Not Applicable Prescriptions/Med Rec: Aspirin 81 mg PO DAILY #30 tab.chew atorvaSTATin Calcium [Atorvastatin Calcium] 10 mg PO DAILY #30 tablet Home Medications: Home Meds Ergocalciferol (Vitamin D2) [Vitamin D2] 1.25 mg PO WEEKLY 05/04/20 [History] Pantoprazole [ProTONIX] 40 mg PO DAILY 05/04/20 [History] methocarbamoL [Methocarbamol] 750 mg PO TID PRN 05/04/20 [History] Aspirin 81 mg PO DAILY #30 tab.chew 05/06/20 [Rx] atorvaSTATin Calcium [Atorvastatin Calcium] 10 mg PO DAILY #30 tablet 05/06/20 [Rx] Oxygen Therapy Mode: Room Air Patient Handouts: Acute Pancreatitis, Dolo-af-Ehbb, Atorvastatin tablets, Aspirin, ASA oral tablets Referrals: Beth Nayak NP [Ordering Only Provider] - 05/14/20 9:45 am Alicia Nichole MD [Physician] - 07/06/20 8:00 am - Discharge Summary/Plan Comment DC Time >30 min.: No - Patient Data Vitals - Most Recent: Last Vital Signs Temp 97.2 F 05/06/20 11:21 Pulse 66 05/06/20 11:21 Resp 16 05/06/20 11:21 BP 123/81 05/06/20 11:21 Pulse Ox 97 05/06/20 11:21 Weight - Most Recent: 69.445 kg I&O - Last 24 hours: Intake & Output 05/05/20 05/06/20 05/06/20 22:59 06:59 14:59 Intake Total 2580 200 980 Output Total 2110 2050 Balance 470 200 -1070 Lab Results - Last 24 hrs: Laboratory Results - last 24 hr 05/06/20 05/06/20 Range/Units 05:12 05:12 WBC 6.64 (4.0-11.0) K/uL RBC 4.34 (4.30-5.90) M/uL Hgb 12.4 (12.0-16.0) g/dL Hct 37.7 (36.0-46.0) % MCV 86.9 (80.0-98.0) fL MCH 28.6 (27.0-32.0) pg MCHC 32.9 (31.0-37.0) g/dL RDW Std Deviation 41.1 (28.0-62.0) fl RDW Coeff of Missy 13 (11.0-15.0) % Plt Count 308 (150-400) K/uL MPV 10.00 (7.40-12.00) fL Neut % (Auto) 57.1 (48.0-80.0) % Lymph % (Auto) 31.9 (16.0-40.0) % [place] % (Auto) 9.6 (0.0-15.0) % Eos % (Auto) 0.8 (0.0-7.0) % Baso % (Auto) 0.6 (0.0-1.5) % Neut # (Auto) 3.8 (1.4-5.7) K/uL Lymph # (Auto) 2.1 (0.6-2.4) K/uL [place] # (Auto) 0.6 (0.0-0.8) K/uL Eos # (Auto) 0.1 (0.0-0.7) K/uL Baso # (Auto) 0.0 (0.0-0.1) K/uL Nucleated RBC % 0.0 /100WBC Nucleated RBCs # 0 K/uL Sodium 144 (136-145) mmol/L Potassium 3.6 (3.5-5.1) mmol/L Chloride 109 H (98-107) mmol/L Carbon Dioxide 25.7 (21.0-32.0) mmol/L BUN 5 L (7.0-18.0) mg/dL Creatinine 0.7 (0.6-1.0) mg/dL Est Cr Clr Drug Dosing 88.30 mL/min Estimated GFR (MDRD) > 60.0 ml/min Glucose 95 (74-106) mg/dL Calcium 8.9 (8.5-10.1) mg/dL Phosphorus 3.3 (2.6-4.7) mg/dL Magnesium 1.7 L (1.8-2.4) mg/dL Total Bilirubin 0.4 (0.2-1.0) mg/dL AST 41 H (15-37) IU/L ALT 88 H (14-63) IU/L Alkaline Phosphatase 74 (46-116) U/L Total Protein 6.3 L (6.4-8.2) g/dL Albumin 3.2 L (3.4-5.0) g/dL Globulin 3.1 (2.6-4.0) g/dL Albumin/Globulin Ratio 1.0 (0.9-1.6) Med Orders - Current: Current Medications Acetaminophen (Tylenol) 650 mg PO Q4H PRN PRN Reason: Pain (Mild 1-3)/fever Last Admin: 05/05/20 19:22 Dose: 650 mg Documented by: Enoxaparin Sodium (Lovenox) 40 mg SUBCUT Q24H [facility] Last Admin: 05/05/20 14:53 Dose: 40 mg Documented by: Pantoprazole Sodium 40 mg/ (Sodium Chloride) 10 mls @ 200 mls/hr IV Q24H [facility] Last Admin: 05/06/20 10:17 Dose: 200 mls/hr Documented by: Ketorolac Tromethamine (Toradol) 15 mg IVPUSH Q6H PRN PRN Reason: Pain Last Admin: 05/06/20 07:44 Dose: 15 mg Documented by: Morphine Sulfate (Morphine) 3 mg IVPUSH Q2H PRN PRN Reason: Pain (severe 7-10) Last Admin: 05/05/20 05:57 Dose: 3 mg Documented by: Ondansetron HCl (Zofran) 4 mg IVPUSH Q4H PRN PRN Reason: Nausea Last Admin: 05/05/20 05:54 Dose: 4 mg Documented by: Methocarbamol 750 Mg (Tab) 1 each PO TID PRN PRN Reason: Spasms Sodium Chloride (Saline Flush) 2.5 ml FLUSH ASDIRECTED PRN PRN Reason: Keep Vein Open Discontinued Medications Diphenhydramine HCl (Benadryl) 50 mg IVPUSH ONETIME ONE Stop: 05/04/20 10:08 Last Admin: 05/04/20 10:17 Dose: 50 mg Documented by: Diphenhydramine HCl (Benadryl) 25 mg IVPUSH ONETIME ONE Stop: 05/05/20 08:07 Last Admin: 05/05/20 08:39 Dose: 25 mg Documented by: Pantoprazole Sodium 40 mg/ (Sodium Chloride) 20 mls @ 420 mls/hr IVPUSH ONETIME ONE Stop: 05/04/20 10:08 Last Admin: 05/04/20 10:17 Dose: 420 mls/hr Documented by: Lactated Ringer's (Ringers, Lactated) 1,000 mls @ 999 mls/hr IV .BOLUS ONE Stop: 05/04/20 11:07 Last Admin: 05/04/20 10:10 Dose: 999 mls/hr Documented by: Lactated Ringer's (Ringers, Lactated) 1,000 mls @ 150 mls/hr IV Q6H [facility] Last Admin: 05/06/20 08:53 Dose: 150 mls/hr Documented by: Lactated Ringer's (Ringers, Lactated) 1,000 mls @ 999 mls/hr IV .BOLUS ONE Stop: 05/04/20 15:30 Last Admin: 05/04/20 14:13 Dose: 999 mls/hr Documented by: Lactated Ringer's (Ringers, Lactated) 1,000 mls @ 999 mls/hr IV .BOLUS ONE Stop: 05/04/20 16:30 Last Admin: 05/04/20 15:25 Dose: 999 mls/hr Documented by: Magnesium Sulfate (Magnesium Sulfate In Water 2 Gm/50 Ml) 2 gm in 50 mls @ 50 mls/hr IV ONETIME ONE Stop: 05/06/20 08:59 Last Admin: 05/06/20 08:48 Dose: 50 mls/hr Documented by: Ketorolac Tromethamine (Toradol) 30 mg IVPUSH ONETIME ONE Stop: 05/05/20 08:07 Last Admin: 05/05/20 08:32 Dose: 30 mg Documented by: Metoclopramide HCl (Reglan) 10 mg IVPUSH ONETIME ONE Stop: 05/04/20 10:08 Last Admin: 05/04/20 10:17 Dose: 10 mg Documented by: Metoclopramide HCl (Reglan) 10 mg IVPUSH ONETIME ONE Stop: 05/05/20 08:07 Last Admin: 05/05/20 08:33 Dose: 10 mg Documented by: Morphine Sulfate (Morphine) 4 mg IVPUSH ONETIME ONE Stop: 05/04/20 11:25 Last Admin: 05/04/20 11:49 Dose: 4 mg Documented by: Nitroglycerin (Nitrostat) 0.4 mg SL Q5M PRN PRN Reason: Chest Pain Last Admin: 05/04/20 10:09 Dose: 0.4 mg Documented by: Sodium Chloride (Saline Flush) 10 ml FLUSH ASDIRECTED PRN PRN Reason: Keep Vein Open Last Admin: 05/04/20 10:32 Dose: 10 ml Documented by: Sodium Chloride (Saline Flush) 2.5 ml FLUSH ASDIRECTED PRN PRN Reason: Keep Vein Open Last Admin: 05/04/20 10:31 Dose: 2.5 ml Documented by: - Exam General: Reports: Alert, Oriented Lungs: Reports: Clear to Auscultation, Normal Respiratory Effort Cardiovascular: Reports: Regular Rate, Regular Rhythm GI/Abdominal Exam: Normal Bowel Sounds, Soft, Non-Tender Neurological: Reports: No New Focal Deficit Psy/Mental Status: Reports: Alert, Normal Affect, Normal Mood <Ophelia Sow - Last Filed: 05/06/20 22:43> Discharge Summary - Referral to [facility] Primary Care Physician: Sarahy Sifuentes MD - Patient Data Vitals - Most Recent: Last Vital Signs Temp 36.2 C 05/06/20 11:21 Pulse 66 05/06/20 11:21 Resp 16 05/06/20 11:21 BP 123/81 05/06/20 11:21 Pulse Ox 97 05/06/20 11:21 I&O - Last 24 hours: Intake & Output 05/06/20 05/06/20 05/06/20 06:59 14:59 22:59 Intake Total 200 980 Output Total 2050 Balance 200 -1070 Lab Results - Last 24 hrs: Laboratory Results - last 24 hr 05/06/20 05/06/20 Range/Units 05:12 05:12 WBC 6.64 (4.0-11.0) K/uL RBC 4.34 (4.30-5.90) M/uL Hgb 12.4 (12.0-16.0) g/dL Hct 37.7 (36.0-46.0) % MCV 86.9 (80.0-98.0) fL MCH 28.6 (27.0-32.0) pg MCHC 32.9 (31.0-37.0) g/dL RDW Std Deviation 41.1 (28.0-62.0) fl RDW Coeff of Missy 13 (11.0-15.0) % Plt Count 308 (150-400) K/uL MPV 10.00 (7.40-12.00) fL Neut % (Auto) 57.1 (48.0-80.0) % Lymph % (Auto) 31.9 (16.0-40.0) % [place] % (Auto) 9.6 (0.0-15.0) % Eos % (Auto) 0.8 (0.0-7.0) % Baso % (Auto) 0.6 (0.0-1.5) % Neut # (Auto) 3.8 (1.4-5.7) K/uL Lymph # (Auto) 2.1 (0.6-2.4) K/uL [place] # (Auto) 0.6 (0.0-0.8) K/uL Eos # (Auto) 0.1 (0.0-0.7) K/uL Baso # (Auto) 0.0 (0.0-0.1) K/uL Nucleated RBC % 0.0 /100WBC Nucleated RBCs # 0 K/uL Sodium 144 (136-145) mmol/L Potassium 3.6 (3.5-5.1) mmol/L Chloride 109 H (98-107) mmol/L Carbon Dioxide 25.7 (21.0-32.0) mmol/L BUN 5 L (7.0-18.0) mg/dL Creatinine 0.7 (0.6-1.0) mg/dL Est Cr Clr Drug Dosing 88.30 mL/min Estimated GFR (MDRD) > 60.0 ml/min Glucose 95 (74-106) mg/dL Calcium 8.9 (8.5-10.1) mg/dL Phosphorus 3.3 (2.6-4.7) mg/dL Magnesium 1.7 L (1.8-2.4) mg/dL Total Bilirubin 0.4 (0.2-1.0) mg/dL AST 41 H (15-37) IU/L ALT 88 H (14-63) IU/L Alkaline Phosphatase 74 (46-116) U/L Total Protein 6.3 L (6.4-8.2) g/dL Albumin 3.2 L (3.4-5.0) g/dL Globulin 3.1 (2.6-4.0) g/dL Albumin/Globulin Ratio 1.0 (0.9-1.6) Med Orders - Current: Current Medications Discontinued Medications Acetaminophen (Tylenol) 650 mg PO Q4H PRN PRN Reason: Pain (Mild 1-3)/fever Last Admin: 05/05/20 19:22 Dose: 650 mg Documented by: Diphenhydramine HCl (Benadryl) 50 mg IVPUSH ONETIME ONE Stop: 05/04/20 10:08 Last Admin: 05/04/20 10:17 Dose: 50 mg Documented by: Diphenhydramine HCl (Benadryl) 25 mg IVPUSH ONETIME ONE Stop: 05/05/20 08:07 Last Admin: 05/05/20 08:39 Dose: 25 mg Documented by: Enoxaparin Sodium (Lovenox) 40 mg SUBCUT Q24H [facility] Last Admin: 05/06/20 14:54 Dose: Not Given Documented by: Pantoprazole Sodium 40 mg/ (Sodium Chloride) 20 mls @ 420 mls/hr IVPUSH ONETIME ONE Stop: 05/04/20 10:08 Last Admin: 05/04/20 10:17 Dose: 420 mls/hr Documented by: Lactated Ringer's (Ringers, Lactated) 1,000 mls @ 999 mls/hr IV .BOLUS ONE Stop: 05/04/20 11:07 Last Admin: 05/04/20 10:10 Dose: 999 mls/hr Documented by: Lactated Ringer's (Ringers, Lactated) 1,000 mls @ 150 mls/hr IV Q6H [facility] Last Admin: 05/06/20 08:53 Dose: 150 mls/hr Documented by: Lactated Ringer's (Ringers, Lactated) 1,000 mls @ 999 mls/hr IV .BOLUS ONE Stop: 05/04/20 15:30 Last Admin: 05/04/20 14:13 Dose: 999 mls/hr Documented by: Pantoprazole Sodium 40 mg/ (Sodium Chloride) 10 mls @ 200 mls/hr IV Q24H [facility] Last Admin: 05/06/20 10:17 Dose: 200 mls/hr Documented by: Lactated Ringer's (Ringers, Lactated) 1,000 mls @ 999 mls/hr IV .BOLUS ONE Stop: 05/04/20 16:30 Last Admin: 05/04/20 15:25 Dose: 999 mls/hr Documented by: Magnesium Sulfate (Magnesium Sulfate In Water 2 Gm/50 Ml) 2 gm in 50 mls @ 50 mls/hr IV ONETIME ONE Stop: 05/06/20 08:59 Last Admin: 05/06/20 08:48 Dose: 50 mls/hr Documented by: Ketorolac Tromethamine (Toradol) 30 mg IVPUSH ONETIME ONE Stop: 05/05/20 08:07 Last Admin: 05/05/20 08:32 Dose: 30 mg Documented by: Ketorolac Tromethamine (Toradol) 15 mg IVPUSH Q6H PRN PRN Reason: Pain Last Admin: 05/06/20 07:44 Dose: 15 mg Documented by: Metoclopramide HCl (Reglan) 10 mg IVPUSH ONETIME ONE Stop: 05/04/20 10:08 Last Admin: 05/04/20 10:17 Dose: 10 mg Documented by: Metoclopramide HCl (Reglan) 10 mg IVPUSH ONETIME ONE Stop: 05/05/20 08:07 Last Admin: 05/05/20 08:33 Dose: 10 mg Documented by: Morphine Sulfate (Morphine) 4 mg IVPUSH ONETIME ONE Stop: 05/04/20 11:25 Last Admin: 05/04/20 11:49 Dose: 4 mg Documented by: Morphine Sulfate (Morphine) 3 mg IVPUSH Q2H PRN PRN Reason: Pain (severe 7-10) Last Admin: 05/05/20 05:57 Dose: 3 mg Documented by: Nitroglycerin (Nitrostat) 0.4 mg SL Q5M PRN PRN Reason: Chest Pain Last Admin: 05/04/20 10:09 Dose: 0.4 mg Documented by: Ondansetron HCl (Zofran) 4 mg IVPUSH Q4H PRN PRN Reason: Nausea Last Admin: 05/05/20 05:54 Dose: 4 mg Documented by: Methocarbamol 750 Mg (Tab) 1 each PO TID PRN PRN Reason: Spasms Sodium Chloride (Saline Flush) 10 ml FLUSH ASDIRECTED PRN PRN Reason: Keep Vein Open Last Admin: 05/04/20 10:32 Dose: 10 ml Documented by: Sodium Chloride (Saline Flush) 2.5 ml FLUSH ASDIRECTED PRN PRN Reason: Keep Vein Open Last Admin: 05/04/20 10:31 Dose: 2.5 ml Documented by: Sodium Chloride (Saline Flush) 2.5 ml FLUSH ASDIRECTED PRN PRN Reason: Keep Vein Open
== END 2020-05-06 14:00 | disposition home or self-care (01) | DRG 282 ==
LOC: MW.ED 09:28 → MW.MS 13:13
PROVIDERS: ADMIT Student in an Organized Health Care Education/Training Program; ATTEND Student in an Organized Health Care Education/Training Program
DX: K85.90 Acute pancreatitis without necrosis or infection, unspecified (principal); R07.89 Other chest pain; K21.9 Gastro-esophageal reflux disease without esophagitis; K22.70 Barrett's esophagus without dysplasia; G43.909 Migraine, unspecified, not intractable, without status migrainosus; E78.5 Hyperlipidemia, unspecified; R16.0 Hepatomegaly, not elsewhere classified; Z20.822 Contact with and (suspected) exposure to COVID-19; M19.90 Unspecified osteoarthritis, unspecified site; M54.9 Dorsalgia, unspecified; G89.29 Other chronic pain; H54.7 Unspecified visual loss; F41.9 Anxiety disorder, unspecified; F32.9 Major depressive disorder, single episode, unspecified; Z87.442 Personal history of urinary calculi; Z90.49 Acquired absence of other specified parts of digestive tract; Z91.09 Other allergy status, other than to drugs and biological substances; Z79.899 Other long term (current) drug therapy
CPT/HCPCS: 36415; 71045; 71045-26; 76700; 76700-26; 80053; 80061; 83036; 83690; 83735; 83880; 84100; 84443; 84484; 85025; 93005; 93010; 96361; 96374; 96375; 99223; 99233; 99238; 99285; 99285-25; A9270-GY; C9113; J1200; J1650; J1885; J2270; J2405; J2765; J3475; J7120; U0002

== ENCOUNTER 2021-10-18 09:53 | Emergency (ER) | payer BC ==
[2021-10-18] MEDS: Ketorolac 30 MG/ML SDV IVPUSH ONE (10:28)
[2021-10-18] MEDS: Sodium Chloride 0.9% 1,000 ML IV ONE (10:28)
[2021-10-18] MEDS: Sodium Chloride 0.9% 2.5 ML Syringe FLUSH PRN (10:29)
[2021-10-18] MEDS: Sodium Chloride 0.9% 10 ML Syringe FLUSH PRN (10:29)
[2021-10-18] MEDS: Morphine 4 MG/ML VIAL IVPUSH ONE (10:29)
[2021-10-18] MEDS: Ondansetron 4 MG/2 ML SDV IVPUSH ONE (10:29)
[2021-10-18 10:40] LABS: CARBON DIOXIDE,CO2 20.9 mmol/L (21.0-32.0); POTASSIUM,K 3.7 mmol/L (3.5-5.1)
[2021-10-18] MEDS: Pantoprazole 80 MG in Sodium Chloride 0.9% 10 ML IVPUSH ONE (10:59)
[2021-10-18] MEDS: Iopamidol 755 MG/ML 500 ML Multipack Bottle IVPUSH STA (11:06)
[2021-10-18 11:10] LABS: CORONAVIRUS COVID-19 NAA NEGATIVE (NEGATIVE); INFLUENZA A NAA NEGATIVE (NEGATIVE); INFLUENZA B NAA NEGATIVE (NEGATIVE)
[2021-10-18 12:30] VITALS: BP 138/84; PULSE 65
== END 2021-10-18 12:31 | disposition home or self-care (01) ==
LOC: MW.ED 09:53
DX: K52.9 Noninfective gastroenteritis and colitis, unspecified (principal); E86.0 Dehydration; K21.9 Gastro-esophageal reflux disease without esophagitis; M19.90 Unspecified osteoarthritis, unspecified site; Z87.891 Personal history of nicotine dependence; Z91.048 Other nonmedicinal substance allergy status; Z88.0 Allergy status to penicillin; Z79.82 Long term (current) use of aspirin; Z79.899 Other long term (current) drug therapy; Z20.822 Contact with and (suspected) exposure to COVID-19
CPT/HCPCS: 0240U; 36415; 74177; 80053; 81003; 83690; 85025; 96361; 96374; 96375; 99284; C9113; J1885; J2270; J2405; J3490; J7030; Q9967

== ENCOUNTER 2021-12-02 10:10 | Day surgery (SDC) | payer BC ==
[2021-12-02] MEDS ORDERED: propofoL 50 ML ONE (11:17)
[2021-12-02] MEDS ORDERED: Lidocaine 2% 5 ML SDV ONE (11:18)
[2021-12-02] MEDS ORDERED: fentaNYL 100 MCG/2 ML SDV ONE ×2 (11:18→12:30)
[2021-12-02] MEDS ORDERED: Ondansetron 4 MG/2 ML SDV ONE (12:04)
[2021-12-02] MEDS ORDERED: Glycopyrrolate 0.2 MG/ML SDV ONE (12:04)
[2021-12-02] MEDS ORDERED: Ketorolac 30 MG/ML SDV ONE (12:34)
[2021-12-02] MEDS ORDERED: Lactated Ringers 1,000 ML IV SCH (12:45)
[2021-12-02 12:56] VITALS: BP 101/84; PULSE 69
== END 2021-12-02 13:11 | disposition home or self-care (01) ==
LOC: MW.SDS 10:10
PROVIDERS: ATTEND Surgery
DX: R19.4 Change in bowel habit (principal); K62.5 Hemorrhage of anus and rectum; K29.00 Acute gastritis without bleeding; K29.50 Unspecified chronic gastritis without bleeding; K21.00 Gastro-esophageal reflux disease with esophagitis, without bleeding; K31.89 Other diseases of stomach and duodenum; K22.89 Other specified disease of esophagus; G43.909 Migraine, unspecified, not intractable, without status migrainosus; K22.70 Barrett's esophagus without dysplasia; Z88.8 Allergy status to other drugs, medicaments and biological substances; Z79.899 Other long term (current) drug therapy; Z98.890 Other specified postprocedural states; Z90.49 Acquired absence of other specified parts of digestive tract; Z87.891 Personal history of nicotine dependence
CPT/HCPCS: 43239; 45378; J0131; J1885; J2405; J2704; J3010; J3490; J7120; 00813

== ENCOUNTER 2023-03-01 07:15 | Emergency (ER) | payer SELFPAY ==
[2023-03-01] MEDS ORDERED: Famotidine 20 MG/2 ML SDV IVPUSH ONE (07:24)
[2023-03-01] MEDS ORDERED: Alum Hydro/Mag Hydro/Simeth XS 15 ML, Lidocaine 2% 5 ML PO ONE ×2 (07:24)
[2023-03-01] MEDS ORDERED: Sodium Chloride 0.9% 1,000 ML IV ONE (07:25)
[2023-03-01] MEDS ORDERED: Ondansetron 4 MG/2 ML SDV IVPUSH ONE (07:25)
[2023-03-01 08:04] LABS: BASOPHILS ABSOLUTE AUTO 0.11 K/uL (0.00-0.20); BASOPHILS PERCENT AUTO 0.9 % (0.0-1.0); EOSINOPHILS ABSOLUTE AUTO 0.08 K/uL (0.00-0.45); EOSINOPHILS PERCENT AUTO 0.7 % (0.0-6.0); HEMATOCRIT 41.3 % (37.0-47.0); HEMOGLOBIN 14.3 g/dL (12.0-16.0); IMMATURE GRAN ABSOLUTE AUTO 0.02 K/uL (0.00-0.05); IMMATURE GRAN PERCENT AUTO 0.2 % (0.0-0.4); LYMPHOCYTES ABSOLUTE AUTO 2.08 K/uL (1.00-4.80); MEAN CORPUSCULAR HEMOGLOBIN 29.2 pg (28.0-32.0); MEAN CORPUSCULAR HGB CONC 34.6 g/dL (32.0-36.0); MEAN CORPUSCULAR VOLUME 84.3 fL (83.0-99.0); MONOCYTES ABSOLUTE AUTO 0.81 K/uL (0.00-0.80); MONOCYTES PERCENT AUTO 6.6 % (0.0-8.0); NEUTROPHILS ABSOLUTE AUTO 9.12 K/uL (1.80-7.70); NEUTROPHILS PERCENT AUTO 74.6 % (41.0-71.0); PLATELET COUNT,PLT 412 K/uL (150-400); WHITE BLOOD CELL COUNT,WBC 12.22 K/uL (3.9-11.3)
[2023-03-01] MEDS ORDERED: Morphine 4 MG/ML Syringe IVPUSH ONE (08:06)
[2023-03-01 08:11] LABS: PTT,PARTIAL THROMBOPLSTIN TIME 28.6 SEC (23.9-30.7)
[2023-03-01 08:20] LABS: A/G RATIO 1.1 (0.9-1.6); ALBUMIN 3.9 g/dL (3.4-5.0); BILIRUBIN TOTAL 0.3 mg/dL (0.2-1.0); CALCIUM 9.4 mg/dL (8.5-10.1); CARBON DIOXIDE,CO2 24.7 mmol/L (21.0-32.0); CREATININE 0.9 mg/dL (0.6-1.0); EST CRCL DRUG DOSING (CG) 63.78 mL/min; POTASSIUM,K 3.9 mmol/L (3.5-5.1); PROTEIN TOTAL,TP 7.5 g/dL (6.4-8.2)
[2023-03-01 08:32] LABS: CORONAVIRUS COVID-19 NAA NEGATIVE (NEGATIVE); INFLUENZA A NAA NEGATIVE (NEGATIVE); INFLUENZA B NAA NEGATIVE (NEGATIVE)
[2023-03-01] MEDS ORDERED: Iopamidol 755 MG/ML 500 ML Multipack Bottle IVPUSH STA (08:45)
[2023-03-01] MEDS ORDERED: Sucralfate Suspension 1 GM/10 ML Cup PO ONE (09:22)
[2023-03-01 09:34] LABS: APPEARANCE,URINE CLEAR; BILIRUBIN,URINE NEGATIVE (NEGATIVE); COLOR,URINE YELLOW; GLUCOSE,URINE NEGATIVE (NEGATIVE); KETONES,URINE NEGATIVE (NEGATIVE); LEUKOCYTE ESTERASE,URINE SMALL (NEGATIVE); NITRITE,URINE NEGATIVE (NEGATIVE); OCCULT BLOOD,URINE NEGATIVE (NEGATIVE); PH,URINE 5.5 (5.0-8.0); PROTEIN,URINE NEGATIVE (NEGATIVE); UROBILINOGEN,URINE 0.2 EU/dL (<2.0)
[2023-03-01] MEDS ORDERED: HYDROmorphone 1 MG/ML Syringe IVPUSH ONE (09:40)
[2023-03-01 09:45] LABS: BACTERIA,URINE FEW (NEGATIVE); EPITHELIAL CELLS,URINE RARE (NONE-FEW); RBC,URINE 0-2 (0-2/HPF)
[2023-03-01 11:17] VITALS: BP 156/80; PULSE 63
== END 2023-03-01 11:17 | disposition home or self-care (01) ==
LOC: MW.ED 07:15
DX: K21.9 Gastro-esophageal reflux disease without esophagitis (principal); Z88.1 Allergy status to other antibiotic agents; Z91.048 Other nonmedicinal substance allergy status; Z88.8 Allergy status to other drugs, medicaments and biological substances; Z86.16 Personal history of COVID-19; Z90.49 Acquired absence of other specified parts of digestive tract; Z90.710 Acquired absence of both cervix and uterus; Z20.822 Contact with and (suspected) exposure to COVID-19
CPT/HCPCS: 0240U; 36415; 71045; 74177; 80053; 81001; 83690; 83735; 84484; 85025; 85379; 85610; 85730; 93005; 96361; 96374; 96375; 99285; A9270; J1170; J2270; J2405; J3490; J7030; Q9967; 93010; 99284

== ENCOUNTER 2024-05-27 20:30 | Emergency (ER) | payer SELFPAY ==
[2024-05-27 21:18] LABS: APPEARANCE,URINE SLT CLOUDY; BILIRUBIN,URINE NEGATIVE (NEGATIVE); COLOR,URINE YELLOW; GLUCOSE,URINE NEGATIVE (NEGATIVE); KETONES,URINE >=80 mg/dL (NEGATIVE); LEUKOCYTE ESTERASE,URINE NEGATIVE (NEGATIVE); NITRITE,URINE NEGATIVE (NEGATIVE); OCCULT BLOOD,URINE NEGATIVE (NEGATIVE); PROTEIN,URINE 30 mg/dL (NEGATIVE); UROBILINOGEN,URINE 0.2 EU/dL (<2.0)
[2024-05-27 21:23] LABS: BASOPHILS ABSOLUTE AUTO 0.04 K/uL (0.00-0.20); BASOPHILS PERCENT AUTO 0.6 % (0.0-1.0); HEMATOCRIT 43.5 % (37.0-47.0); HEMOGLOBIN 14.7 g/dL (12.0-16.0); IMMATURE GRAN ABSOLUTE AUTO 0.01 K/uL (0.00-0.05); IMMATURE GRAN PERCENT AUTO 0.2 % (0.0-0.4); LYMPHOCYTES ABSOLUTE AUTO 1.21 K/uL (1.00-4.80); LYMPHOCYTES PERCENT AUTO 18.5 % (24.0-44.0); MEAN CORPUSCULAR HEMOGLOBIN 28.3 pg (28.0-32.0); MEAN CORPUSCULAR HGB CONC 33.8 g/dL (32.0-36.0); MEAN CORPUSCULAR VOLUME 83.8 fL (83.0-99.0); MEAN PLATELET VOLUME 9.1 fL (9.4-12.3); MONOCYTES ABSOLUTE AUTO 0.45 K/uL (0.00-0.80); MONOCYTES PERCENT AUTO 6.9 % (0.0-8.0); NEUTROPHILS ABSOLUTE AUTO 4.82 K/uL (1.80-7.70); NEUTROPHILS PERCENT AUTO 73.8 % (41.0-71.0); PLATELET COUNT,PLT 367 K/uL (150-400); RED BLOOD CELL COUNT 5.19 M/uL (4.10-5.30); WHITE BLOOD CELL COUNT,WBC 6.53 K/uL (3.9-11.3)
[2024-05-27] MEDS: Sodium Chloride 0.9% 1,000 ML IV ONE (21:29)
[2024-05-27] MEDS: Ketorolac 30 MG/ML SDV IVPUSH ONE (21:30)
[2024-05-27] MEDS: Ondansetron 4 MG/2 ML SDV IVPUSH ONE (21:30)
[2024-05-27] MEDS: Famotidine 20 MG/2 ML SDV IVPUSH ONE (21:30)
[2024-05-27 21:33] LABS: BACTERIA,URINE NOT SEEN (NEGATIVE); EPITHELIAL CELLS,URINE NOT SEEN (NONE-FEW); RBC,URINE 0-1 (0-2/HPF); WBC,URINE 0-1 (0-5/HPF)
[2024-05-27 21:34] LABS: AMORPHOUS SEDIMENT,URINE MODERATE (NEGATIVE)
[2024-05-27 21:44] LABS: A/G RATIO 1.2 (0.9-1.6); ALBUMIN 4.2 g/dL (3.4-5.0); BILIRUBIN TOTAL 0.6 mg/dL (0.2-1.0); CALCIUM 9.5 mg/dL (8.5-10.1); CARBON DIOXIDE,CO2 21.3 mmol/L (21.0-32.0); CREATININE 0.9 mg/dL (0.6-1.0); EST CRCL DRUG DOSING (CG) 62.23 mL/min; POTASSIUM,K 3.9 mmol/L (3.5-5.1); PROTEIN TOTAL,TP 7.6 g/dL (6.4-8.2)
[2024-05-27 23:16] VITALS: BP 149/69; PULSE 61
== END 2024-05-27 23:39 | disposition home or self-care (01) ==
LOC: MW.ED 20:30
DX: J10.1 Influenza due to other identified influenza virus with other respiratory manifestations (principal); Z91.048 Other nonmedicinal substance allergy status; Z88.0 Allergy status to penicillin; Z79.899 Other long term (current) drug therapy; Z90.49 Acquired absence of other specified parts of digestive tract; Z87.891 Personal history of nicotine dependence
CPT/HCPCS: 36415; 71045; 80053; 81001; 83690; 83735; 85025; 87428; 93005; 96361; 96374; 96375; 99284; J1885; J2405; J7030; 93010; 99283